=== PATIENT | female | born 1940 | race African-American/Black ===

== ENCOUNTER 2018-05-16 12:30 | Inpatient (IN) | payer MEDICARE, MEDICAID ==
[~2018-05-16] VITALS: Ht 175.3 cm; Wt 122.5 kg
[~2018-05-16 12:30] MED LIST: ASPIR-LOW81 MG PO; ATORVASTATIN CA10 MG PO; CARVEDILOL25 MG PO; FUROSEMIDE20 M1 PO; HYDRALAZINE HCL50 MG PO; JANUMET 50-1,01 EACH PO; MELOXICAM7.5 MG PO; PRECOSE50 MG PO; TRAMADOL-ACETA1 EACH PO; TRIBENZOR 40-51 EACH PO; ZAROXOLYN2.5 MG PO
[2018-05-16 12:45] VITALS: BP 113/54
[2018-05-16] MEDS ORDERED: BRIMONIDINE TART5 ML BOTH EYES (12:47)
[2018-05-16] MEDS ORDERED: ALBUTEROL2.5 MG/3 M INH (12:47)
[2018-05-16] MEDS ORDERED: CLONIDINE1 EAC1 TD (12:48)
[2018-05-16] MEDS ORDERED: Isovue-300 100ml vial INJ PRN (13:00)
[2018-05-16] MEDS ORDERED: HUMALOG KW200 UNIT/1 SQ (13:32)
[2018-05-16] MEDS ORDERED: GABAPENTIN100 MG ORAL (13:32)
[2018-05-16] MEDS ORDERED: SENNA8.6 M2 PO (13:34)
[2018-05-16] MEDS ORDERED: PROCARDIA XL90 M4 ORAL (13:34)
[2018-05-16] MEDS ORDERED: RISPERDAL2 MG ORAL (13:34)
[2018-05-16 13:56] LABS: BASOPHILS % (AUTO) 1.4 % (0.0-2.0); HEMATOCRIT 41.5 % (37.0-47.0); HEMOGLOBIN 13.3 G/DL (12.0-16.0); LYMPHOCYTES % (AUTO) 29.9 % (20.0-45.0); MEAN CORPUSCULAR VOLUME 92 FL (80-99); MONOCYTES % (AUTO) 8.1 % (1.0-10.0); NEUTROPHILS % (AUTO) 56.6 % (45.0-75.0); PLATELET COUNT 196 K/UL (150-450); RED BLOOD COUNT 4.53 M/UL (4.20-5.40); RED CELL DISTRIBUTION WIDTH 13.2 % (11.6-14.8); WHITE BLOOD COUNT 4.6 K/UL (4.8-10.8)
--- NOTE | 2018-05-16 13:56 | Emergency Room Report ---
History of Present Illness General Chief Complaint: General Complaint Source: Patient Present Illness HPI Mrs. Montenegro is a 77 yo female who presents with severe RLQ pain. Sharp pain. Patient is confused. Hx is limited. SHe keeps asking to be taken to [facility]. She is not convinced that she is in the right hospital. According to [place] documentation from [facility], patient has pneumonia CKD heart failure COPD gait difficulty diabetes Osteoarthritis obesity polyneuropathy back pain left eye blindness hyponatremia, depression Full Code Status PCP Dr. Martinez Allergies: Coded Allergies: PAPAYA (Verified Allergy, Intermediate, ITCH TO LIPS AND ORAL CAVITY, 10/23) Patient History Now: No Nursing Documentation-[facility] Past Medical History: No History, Except For Hx Cardiac Problems: No - CHF Hx Hypertension: Yes Hx COPD: Yes Hx Diabetes: Yes Hx Cancer: No Hx Gastrointestinal Problems: Yes History Of Psychiatric Problem: Yes - Depresion, Schizo Hx Neurological Problems: No - Neuropathy, Osteoarthritis Review of Systems All Other Systems: limited - altered mental status Physical Exam Vital Signs Date Time Temp Pulse Resp B/P (MAP) Pulse Ox O2 Delivery O2 Flow Rate FiO2 05/16/18 12:35 98.5 67 24 112/59 90 Room Air 2.0 98.4 General Appearance: no apparent distress, alert, non-toxic, other - appears chronically ill Eyes: bilateral eye other - left eyelid droop ENT: normal pharynx, normal voice, moist mucus membranes Neck: normal inspection, full range of motion Respiratory: normal inspection, chest non-tender, lungs clear, normal breath sounds Cardiovascular #1: regular rate, rhythm, no gallop, no rub Gastrointestinal: soft, guarding - voluntary guarding, tenderness - RLQ Neurologic: normal inspection, alert, other - oriented to name, unclear of place and date Psychiatric: other - abnormal memory, normal mood affect Skin: normal color Medical Decision Making ER Course Ms. Montenegro presents wtih RLQ pain with exquisite tenderness on exam. DDX: appendicitis, mass, colitis/enteritis, bowel obstruction My colleague Dr. Iyer will determine final disposition once CT is performed. PCP Dr. Martinez previously called to inform me that patient would be coming to ED Last Vital Signs Date Time Temp Pulse Resp B/P (MAP) Pulse Ox O2 Delivery O2 Flow Rate FiO2 05/16/18 12:35 98.5 67 24 112/59 90 Room Air 2.0 98.4 Condition: Stable Signed Out To: Dr. Chris Referrals: Nathalia Martinez MD (PCP) Jill Maldonado MD May 16, 2018 13:56
[2018-05-16 14:11] LABS: ANION GAP 7 mmol/L (5-15); BLOOD UREA NITROGEN 21 mg/dL (7-18); CALCIUM 9.4 MG/DL (8.5-10.1); CARBON DIOXIDE 31 MMOL/L (21-32); CHLORIDE 100 MMOL/L (98-107); CREATININE 1.3 MG/DL (0.55-1.30); POTASSIUM 3.1 MMOL/L (3.5-5.1); SODIUM 138 MMOL/L (136-145)
[2018-05-16 14:16] LABS: ALANINE AMINOTRANSFERASE 15 U/L (12-78); ALBUMIN 3.2 G/DL (3.4-5.0); ALBUMIN/GLOBULIN RATIO 0.9 (1.0-2.7); ALKALINE PHOSPHATASE 135 U/L (46-116); ASPARTATE AMINO TRANSFERASE 8 U/L (15-37); BILIRUBIN,TOTAL 0.4 MG/DL (0.2-1.0)
[2018-05-16 14:20] LABS: APPEARANCE,URINE SLIGHTLY CLOUDY; BILIRUBIN, URINE NEGATIVE (NEGATIVE); GLUCOSE, URINE (UA) 2+ (NEGATIVE); KETONES,URINE NEGATIVE (NEGATIVE); LEUKOCYTE ESTERASE ,URINE NEGATIVE (NEGATIVE); NITRITE,URINE NEGATIVE (NEGATIVE); PH,URINE 5 (4.5-8.0); PROTEIN,URINE NEGATIVE (NEGATIVE); UROBILINOGEN,URINE NORMAL MG/DL (0.0-1.0)
[2018-05-16 14:25] LABS: COLOR,URINE YELLOW
--- NOTE | 2018-05-16 15:41 | Diagnostic Imaging Report ---
Clinical Indication: Severe right lower quadrant pain Technique: No oral contrast utilized, per emergency room physician request IV administration nonionic contrast. Venous phase spiral acquisition obtained through the abdomen and pelvis. Multiplanar reconstructions were generated. Total dose length product 1477.84 mGycm. CTDIvol(s) 19.75,19.95 mGy. Dose reduction achieved using automated exposure control Comparison: none Findings: Lack of enteric contrast limits assessment of the GI tract. The appendix is normal. There is distention of the rectum with feces minimal if any rectal wall thickening. Rectal diameter is 8 cm. There is edema of the presacral fat. No evidence of diverticulosis or diverticulitis. No small bowel distention. There is diastasis of the rectus abdominis tendon and a small periumbilical hernia. No free or loculated intraperitoneal gas or fluid is evident. The distal esophagus, stomach, duodenum are unremarkable. The common bile duct is somewhat ectatic, but there is no evidence of downstream obstructive lesion. The liver contains a granulomatous calcification within the right lobe. The gallbladder, pancreas, spleen, adrenals, right kidney are all unremarkable. The left kidney demonstrates a punctate calculus within a lower pole calyx. Also demonstrates a 1 cm lower pole cyst. There is a subcentimeter low-attenuation lesion in the interpolar region which is too small to characterize. No retroperitoneal or mesenteric mass or adenopathy. Uterus is absent, presumably postsurgically. The bladder contains a single bubble of gas, is otherwise unremarkable. There is mild edema of the bilateral flank subcutaneous fat. There is some atelectasis at the lung bases, left greater than right. There is a compression fracture deformity of the L1 vertebral body. There is anterior offset of L4 on L5, without evidence of pars defect. There are degenerative changes of the lumbosacral junction. Impression: Limited assessment of the GI tract, due to lack of enteric contrast administration Rectal distention with feces, suggestive of rectal fecal impaction. No definite significant rectal wall thickening, but edema of the presacral fat could indicate stercoral proctitis Nonobstructive left lower pole renal calyceal calculus Single gas bubble within the bladder. Most likely due to recent instrumentation. However, if there is no history of such, the possibility of infection with gas-forming organism should be considered L1 vertebral body compression fracture, age indeterminate. Consider MRI for better characterization if this is clinically relevant Left renal cyst. Left renal low-attenuation lesion which is too small to characterize, most likely benign simple cyst. No further follow-up necessary Other findings as noted, including degenerative spondylosis, edema of the bilateral flank subcutaneous fat, tiny fat-containing umbilical hernia, basilar pulmonary parenchymal atelectasis, granulomas calcification within the liver The CT scanner at [facility] is accredited by the [employer] and the scans are performed using protocols designed to limit radiation exposure to as low as reasonably achievable to attain images of sufficient resolution adequate for diagnostic evaluation.
[2018-05-16 16:00] VITALS: BP 128/64
--- NOTE | 2018-05-16 16:30 | GI Initial Consult Note ---
History of Present Illness General Date patient seen: May 16, 2018 Time patient seen: 16:15 Reason for Hospitalization: General Complaint Referring physician: SERAFIN JONES Reason for Consultation: ABDOMINAL PAIN Present Illness HPI Mrs. Montenegro is a 77 yo female who presents with severe RLQ pain. Sharp pain. Patient is confused. Hx is limited. She keeps asking to be taken to [facility]. She is not convinced that she is in the right hospital. According to [place] documentation from [facility], patient has pneumonia CKD heart failure COPD gait difficulty diabetes Osteoarthritis obesity polyneuropathy back pain left eye blindness hyponatremia, depression. GI consulted for RLQ abdominal pain. ROS limited, patient with history of schizophrenia/dementia is currently confused, unsure if this is her baseline. Pt seen, awake A&Ox1 has c/o of RLQ pain. Abdomen is soft, non tender, non distended, unable to assess for rebound tenderness. CT AP shows rectal distention with feces, suggestive of rectal fecal impaction. No documented use of narcotics. Unknown history of endoscopy / colonoscopy. Home Meds Reported Medications Sennosides (SENNA) 8.6 Mg Tablet, 17.2 MG PO BEDTIME, TAB 05/16/18 Risperidone* (RISPERDAL*) 2 Mg Tablet, 2 MG ORAL BEDTIME, #30 TAB 0 Refills 05/16/18 Nifedipine Xl* (PROCARDIA XL*) 90 Mg Tab.er.24, 60 MG ORAL DAILY, TAB 05/16/18 Insulin Lispro (Humalog Kwikpen) 200 Unit/1 Ml Insuln.pen, SQ, EA 05/16/18 Gabapentin* (GABAPENTIN*) 100 Mg Capsule, 100 MG ORAL THREE TIMES A DAY, CAP 05/16/18 Clonidine (CLONIDINE) 1 Each Patch.tdwk, 1 EACH TD ONCE A WEEK, PATCH 05/16/18 Brimonidine Tartrate* (ALPHAGAN*) 5 Ml Drops, 1 DROP BOTH EYES TID, ML 05/16/18 Albuterol Sulfate* (ALBUTEROL SULFATE HHN*) 2.5 Mg/3 Ml Vial.neb, 3 ML INH Q4H PRN for Shortness of Breath, EA 05/16/18 Furosemide* (LASIX*) 20 Mg Tablet, 40 MG PO DAILY, #10 TAB Take 1 tablet by mouth daily 08/26/12 Sitagliptin Phos/Metformin Hcl (JANUMET 50-1,000 MG TABLET) 1 Each Tablet, 1 EACH PO DAILY 08/26/12 Atorvastatin Calcium* (LIPITOR*) 10 Mg Tablet, 20 MG PO QHS 08/26/12 Tramadol Hcl/Acetaminophen (TRAMADOL-ACETAMINOPHN 37.5-325) 1 Each Tablet, 1 EACH PO PRN 08/26/12 Aspirin* (ASPIR-LOW*) 81 Mg Tablet.dr, 81 MG PO DAILY, TAB 08/26/12 Meloxicam* (MELOXICAM*) 7.5 Mg Tablet, 7.5 MG PO DAILY 08/26/12 Hydralazine Hcl* (HYDRALAZINE HCL*) 50 Mg Tablet, 50 MG PO BID 08/26/12 Acarbose (Acarbose) 50 Mg Tab, 50 MG PO TID, TAB Take one tablet by mouth three times a day 08/26/12 Carvedilol* (CARVEDILOL*) 25 Mg Tablet, 25 MG PO Q12HR 08/26/12 Olmesartan Med/Amlodipine/Hctz 40-5-12.5 (TRIBENZOR 40-5-12.5 MG TABLET) 1 Each Tablet, 1 EACH PO DAILY 08/26/12 Metolazone (Metolazone) 2.5 Mg Tab, 2.5 MG PO DAILY, #10 TAB Take 1 tablet by mouth every day. 08/26/12 Med list reviewed/reconciled: Yes Allergies: Coded Allergies: PAPAYA (Verified Allergy, Intermediate, ITCH TO LIPS AND ORAL CAVITY, 10/23) Patient History Limited by: medical condition History Provided By: Medical Record PMH Narrative DM COPD CHF with diastolic dysfunction OA Morbid Obesity Polyneuropathy Chronic Lower Back Pain Left eye blindness CKD Gait Imbalance Depression Past Surgical History: Hysterectomy Social History: Denies: smoking, alcohol use, drug use, other Review of Systems All Other Systems: limited Physical Exam Vital Signs Date Time Temp Pulse Resp B/P (MAP) Pulse Ox O2 Delivery O2 Flow Rate FiO2 05/16/18 12:35 98.5 67 24 112/59 90 Room Air 2.0 98.4 Sp02 EP Interpretation: reviewed Labs Laboratory Tests Test 05/16/18 13:37 05/16/18 14:00 White Blood Count 4.6 K/UL (4.8-10.8) L Red Blood Count 4.53 M/UL (4.20-5.40) Hemoglobin 13.3 G/DL (12.0-16.0) Hematocrit 41.5 % (37.0-47.0) Mean Corpuscular Volume 92 FL (80-99) Mean Corpuscular Hemoglobin 29.4 PG (27.0-31.0) Mean Corpuscular Hemoglobin Concent 32.1 G/DL (32.0-36.0) Red Cell Distribution Width 13.2 % (11.6-14.8) Platelet Count 196 K/UL (150-450) Mean Platelet Volume 10.3 FL (6.5-10.1) H Neutrophils (%) (Auto) 56.6 % (45.0-75.0) Lymphocytes (%) (Auto) 29.9 % (20.0-45.0) Monocytes (%) (Auto) 8.1 % (1.0-10.0) Eosinophils (%) (Auto) 4.0 % (0.0-3.0) H Basophils (%) (Auto) 1.4 % (0.0-2.0) Sodium Level 138 MMOL/L (136-145) Potassium Level 3.1 MMOL/L (3.5-5.1) L Chloride Level 100 MMOL/L (98-107) Carbon Dioxide Level 31 MMOL/L (21-32) Anion Gap 7 mmol/L (5-15) Blood Urea Nitrogen 21 mg/dL (7-18) H Creatinine 1.3 MG/DL (0.55-1.30) Estimat Glomerular Filtration Rate mL/min (>60) Glucose Level 269 MG/DL (74-106) H Calcium Level 9.4 MG/DL (8.5-10.1) Total Bilirubin 0.4 MG/DL (0.2-1.0) Aspartate Amino Transf (AST/SGOT) 8 U/L (15-37) L Alanine Aminotransferase (ALT/SGPT) 15 U/L (12-78) Alkaline Phosphatase 135 U/L (46-116) H Total Protein 6.8 G/DL (6.4-8.2) Albumin 3.2 G/DL (3.4-5.0) L Globulin 3.6 g/dL Albumin/Globulin Ratio 0.9 (1.0-2.7) L Lipase 62 U/L (73-393) L Urine Color Yellow Urine Appearance Slightly cloudy Urine pH 5 (4.5-8.0) Urine Specific [place] 1.015 (1.005-1.035) Urine Protein Negative (NEGATIVE) Urine Glucose (UA) 2+ (NEGATIVE) H Urine Ketones Negative (NEGATIVE) Urine Blood Negative (NEGATIVE) Urine Nitrite Negative (NEGATIVE) Urine Bilirubin Negative (NEGATIVE) Urine Urobilinogen Normal MG/DL (0.0-1.0) Urine Leukocyte Esterase Negative (NEGATIVE) Urine RBC 0 /HPF (0 - 2) Urine WBC 0 /HPF (0 - 2) Urine Squamous Epithelial Cells Moderate /LPF (NONE/OCC) H Urine Bacteria Few /HPF (NONE) Urine Yeast Moderate /HPF (NONE) H General Appearance: no apparent distress, obese Head: normocephalic EENT: normal ENT inspection Neck: supple Respiratory: no respiratory distress Cardiovascular: normal rate Gastrointestinal: non tender, soft Rectal: deferred Neurologic: alert Skin: normal inspection, normal color, no rash, warm/dry Lymphatic: normal inspection Current Medications Current Medications Medications (Trade) Dose Ordered Sig/Smooth Route PRN Reason Start Time Stop Time Status Last Admin Dose Admin Barium Sulfate (Readi-Cat 2) 450 ml NOW PRN ORAL Radiology Procedure 05/16/18 13:00 05/18/18 12:46 Iopamidol (Isovue-300 100ml) 100 ml NOW PRN INJ Radiology Procedure 05/16/18 13:00 GI: Plan Problems: (1) Fecal impaction in rectum (2) Morbid obesity (3) Diabetes mellitus (4) Constipation Plan PO mineral oil x 1, followed by mineral oil PA tonight CLD, advance as tolerated bowel regime >> colace + miralax will consider digital disimpaction if medical management fails DM management H2B electrolyte correction outpatient GI procedures Discussed with Dr. Sanchez. Thank you for this patient referral, we will follow. The patient was seen and examined at bedside and all new and available data was reviewed in the patients chart. I agree with the above findings, impression and plan. (Patient seen earlier today. Signature stamp does not reflect patient encounter time.). - MD Liana Paul,[facility] [employer] May 16, 2018 16:30
[2018-05-16] MEDS ORDERED: Mineral Oil 30ml ud ORAL PRN (16:45)
--- NOTE | 2018-05-16 17:22 | Diagnostic Imaging Report ---
Indication: Chest pain Technique: One view of the chest Comparison: none Findings: Suboptimal inspiration. There is central bronchial wall thickening. Lungs and pleural spaces are otherwise clear. The heart is borderline enlarged. Impression: Borderline cardiomegaly Central bronchial wall thickening and interstitial prominence, probably on the basis of chronic bronchitis, mild interstitial edema not completely excludable. Correlate with clinical findings
[2018-05-16 17:38] VITALS: BP 140/67
[2018-05-16] MEDS ORDERED: Mineral Oil 30ml ud ORAL SCH (19:00)
[2018-05-16 20:00] VITALS: BP 102/55
[2018-05-16] MEDS ORDERED: Fleet's Mineral Oil Enema RECTAL SCH (20:00)
[2018-05-16] MEDS: Miralax 17gm pkt ORAL SCH (20:41)
[2018-05-16] MEDS: Docusate 100mg cap ORAL SCH (20:41)
[2018-05-17] VITALS: BP 122/78
[2018-05-17] MEDS ORDERED: Albuterol ud Inhalation HHN PRN (02:30)
[2018-05-17 04:00] VITALS: BP 142/62
[2018-05-17] MEDS: NovoLOG Insulin Flexpen SUBQ SCH ×4 (06:16→21:00)
[2018-05-17 08:00] VITALS: BP 125/59
[2018-05-17 08:05] LABS: BASOPHILS % (AUTO) 1.7 % (0.0-2.0); EOSINOPHILS % (AUTO) 2.8 % (0.0-3.0); HEMATOCRIT 38.5 % (37.0-47.0); HEMOGLOBIN 12.9 G/DL (12.0-16.0); LYMPHOCYTES % (AUTO) 25.9 % (20.0-45.0); MEAN CORPUSCULAR VOLUME 92 FL (80-99); MONOCYTES % (AUTO) 7.3 % (1.0-10.0); NEUTROPHILS % (AUTO) 62.4 % (45.0-75.0); PLATELET COUNT 196 K/UL (150-450); RED CELL DISTRIBUTION WIDTH 13.3 % (11.6-14.8); WHITE BLOOD COUNT 4.6 K/UL (4.8-10.8)
[2018-05-17] MEDS: Aspirin EC 81mg tab ORAL SCH (08:54)
[2018-05-17] MEDS: Carvedilol 25mg Tab ORAL SCH ×2 (08:55→22:28)
[2018-05-17] MEDS: Docusate 100mg cap ORAL SCH ×3 (08:55→18:00)
[2018-05-17] MEDS: Brimonidine 0.2% Opth Sol BOTH EYES SCH ×3 (08:55→18:27)
[2018-05-17 09:56] LABS: ANION GAP 9 mmol/L (5-15); BLOOD UREA NITROGEN 19 mg/dL (7-18); CALCIUM 9.3 MG/DL (8.5-10.1); CARBON DIOXIDE 29 MMOL/L (21-32); CHLORIDE 100 MMOL/L (98-107); CREATININE 1.2 MG/DL (0.55-1.30); POTASSIUM 3.2 MMOL/L (3.5-5.1); SODIUM 137 MMOL/L (136-145)
--- NOTE | 2018-05-17 09:56 | Consultation ---
Consult Note Consult Note Present Illness HPI Mrs. Montenegro is a 77 yo female who presents with severe RLQ pain. Sharp pain. Patient is confused. Hx is limited. SHe keeps asking to be taken to [facility]. She is not convinced that she is in the right hospital. According to [place] documentation from [facility], patient has pneumonia CKD heart failure COPD gait difficulty diabetes Osteoarthritis obesity polyneuropathy back pain left eye blindness hyponatremia, depression PCP Dr. Martinez Allergies: PAPAYA (Verified Allergy, Intermediate, ITCH TO LIPS AND ORAL CAVITY, 10/23) Past Medical History: No History, Except For Hx Cardiac Problems: No - CHF Hx Hypertension: Yes Hx COPD: Yes Hx Diabetes: Yes Hx Gastrointestinal Problems: Yes History Of Psychiatric Problem: Yes - Depresion, Schizo Hx Neurological Problems: No - Neuropathy, Osteoarthritis Assessment/Plan (1) Fecal impaction in rectum (2) Morbid obesity (3) Diabetes mellitus (4) Constipation (5) Low K (6) HTN (7) Psych Ds watch and replace electrolytes Per orders Tj Mancilla MD May 17, 2018 09:56
[2018-05-17 12:00] VITALS: BP 125/62
[2018-05-17] MEDS ORDERED: Fleet's Enema 133ml RECTAL ONE (12:00)
--- NOTE | 2018-05-17 13:34 | Infectious Diseases Prog Note ---
Assessment/Plan Problems: (1) RLQ abdominal pain Assessment & Plan: with negative CT scan for any abscess or inflammatory process , will keep off antibiotics , monitor clinically (2) Fecal impaction Assessment & Plan: recommend laxatives and enema , GI is following (3) Dehydration Assessment & Plan: continue ivf for hydration (4) Diabetes mellitus Assessment & Plan: recommend tight glycemic control Subjective Allergies: Coded Allergies: PAPAYA (Verified Allergy, Intermediate, ITCH TO LIPS AND ORAL CAVITY, 10/23) Subjective ID coverage for Dr Joyce Objective Vital Signs Last 24 Hour Vital Signs Date Time Temp Pulse Resp B/P (MAP) Pulse Ox O2 Delivery O2 Flow Rate FiO2 05/17/18 09:00 Nasal Cannula 2.0 05/17/18 08:55 71 125/59 05/17/18 08:55 71 125/59 05/17/18 08:20 Nasal Cannula 2.0 28 05/17/18 08:20 71 16 Nasal Cannula 2.0 28 05/17/18 08:20 96 Nasal Cannula 2.0 28 05/17/18 08:00 98.3 65 18 125/59 (81) 95 98.3 05/17/18 04:00 98.2 82 18 142/62 (88) 95 98.2 05/17/18 02:12 Nasal Cannula 2.0 05/17/18 01:11 Nasal Cannula 2.0 05/17/18 00:00 98.6 76 18 122/78 (93) 95 98.6 05/16/18 20:00 98.5 67 18 102/55 (71) 95 98.5 05/16/18 19:05 98.1 85 18 140/67 99 Nasal Cannula 2.0 98.1 05/16/18 17:38 98.1 85 140/67 92 2.0 99 98.1 05/16/18 16:00 98.4 71 23 128/64 99 Nasal Cannula 2.0 98.4 Height (Feet): 5 Height (Inches): 9.00 Weight (Pounds): 270 Microbiology Date/Time Source Procedure Growth Status 05/16/18 14:00 Urine,Clean Catch Urine Culture - Preliminary NO GROWTH Resulted 05/17/18 00:00 Rectum Received Laboratory Tests Test 05/16/18 13:37 05/16/18 14:00 05/17/18 06:55 White Blood Count 4.6 K/UL (4.8-10.8) L 4.6 K/UL (4.8-10.8) L Red Blood Count 4.53 M/UL (4.20-5.40) 4.20 M/UL (4.20-5.40) Hemoglobin 13.3 G/DL (12.0-16.0) 12.9 G/DL (12.0-16.0) Hematocrit 41.5 % (37.0-47.0) 38.5 % (37.0-47.0) Mean Corpuscular Volume 92 FL (80-99) 92 FL (80-99) Mean Corpuscular Hemoglobin 29.4 PG (27.0-31.0) 30.6 PG (27.0-31.0) Mean Corpuscular Hemoglobin Concent 32.1 G/DL (32.0-36.0) 33.4 G/DL (32.0-36.0) Red Cell Distribution Width 13.2 % (11.6-14.8) 13.3 % (11.6-14.8) Platelet Count 196 K/UL (150-450) 196 K/UL (150-450) Mean Platelet Volume 10.3 FL (6.5-10.1) H 8.7 FL (6.5-10.1) Neutrophils (%) (Auto) 56.6 % (45.0-75.0) 62.4 % (45.0-75.0) Lymphocytes (%) (Auto) 29.9 % (20.0-45.0) 25.9 % (20.0-45.0) Monocytes (%) (Auto) 8.1 % (1.0-10.0) 7.3 % (1.0-10.0) Eosinophils (%) (Auto) 4.0 % (0.0-3.0) H 2.8 % (0.0-3.0) Basophils (%) (Auto) 1.4 % (0.0-2.0) 1.7 % (0.0-2.0) Sodium Level 138 MMOL/L (136-145) 137 MMOL/L (136-145) Potassium Level 3.1 MMOL/L (3.5-5.1) L 3.2 MMOL/L (3.5-5.1) L Chloride Level 100 MMOL/L (98-107) 100 MMOL/L (98-107) Carbon Dioxide Level 31 MMOL/L (21-32) 29 MMOL/L (21-32) Anion Gap 7 mmol/L (5-15) 9 mmol/L (5-15) Blood Urea Nitrogen 21 mg/dL (7-18) H 19 mg/dL (7-18) H Creatinine 1.3 MG/DL (0.55-1.30) 1.2 MG/DL (0.55-1.30) Estimat Glomerular Filtration Rate mL/min (>60) mL/min (>60) Glucose Level 269 MG/DL (74-106) H 309 MG/DL (74-106) H Calcium Level 9.4 MG/DL (8.5-10.1) 9.3 MG/DL (8.5-10.1) Total Bilirubin 0.4 MG/DL (0.2-1.0) Aspartate Amino Transf (AST/SGOT) 8 U/L (15-37) L Alanine Aminotransferase (ALT/SGPT) 15 U/L (12-78) Alkaline Phosphatase 135 U/L (46-116) H Total Protein 6.8 G/DL (6.4-8.2) Albumin 3.2 G/DL (3.4-5.0) L Globulin 3.6 g/dL Albumin/Globulin Ratio 0.9 (1.0-2.7) L Lipase 62 U/L (73-393) L Urine Color Yellow Urine Appearance Slightly cloudy Urine pH 5 (4.5-8.0) Urine Specific [place] 1.015 (1.005-1.035) Urine Protein Negative (NEGATIVE) Urine Glucose (UA) 2+ (NEGATIVE) H Urine Ketones Negative (NEGATIVE) Urine Blood Negative (NEGATIVE) Urine Nitrite Negative (NEGATIVE) Urine Bilirubin Negative (NEGATIVE) Urine Urobilinogen Normal MG/DL (0.0-1.0) Urine Leukocyte Esterase Negative (NEGATIVE) Urine RBC 0 /HPF (0 - 2) Urine WBC 0 /HPF (0 - 2) Urine Squamous Epithelial Cells Moderate /LPF (NONE/OCC) H Urine Bacteria Few /HPF (NONE) Urine Yeast Moderate /HPF (NONE) H Current Medications Medications (Trade) Dose Ordered Sig/Smooth Route PRN Reason Start Time Stop Time Status Last Admin Dose Admin Albuterol Sulfate (Proventil) 2.5 mg Q4H PRN HHN Shortness of Breath 05/17/18 02:30 05/22/18 02:29 Aspirin (Ecotrin) 81 mg DAILY ORAL 05/17/18 09:00 06/16/18 08:59 05/17/18 08:54 Atorvastatin Calcium (Lipitor) 20 mg QHS ORAL 05/17/18 21:00 06/16/18 20:59 Barium Sulfate (Readi-Cat 2) 450 ml NOW PRN ORAL Radiology Procedure 05/16/18 13:00 05/18/18 12:46 Brimonidine Tartrate (Alphagan) 1 drop TID BOTH EYES 05/17/18 09:00 06/16/18 08:59 05/17/18 08:55 Carvedilol (Coreg) 25 mg Q12HR ORAL 05/17/18 09:00 06/16/18 08:59 05/17/18 08:55 Clonidine HCl (Catapres TTS-1) 1 patch ONCE A WEEK TDERMAL 05/23/18 09:00 06/22/18 08:59 Dextrose (Dextrose 50%) 25 ml Q30M PRN IV Hypoglycemia 05/17/18 05:45 06/16/18 05:44 Dextrose (Dextrose 50%) 50 ml Q30M PRN IV Hypoglycemia 05/17/18 05:45 06/16/18 05:44 Docusate Sodium (Colace) 100 mg TID ORAL 05/16/18 18:00 06/15/18 17:59 05/17/18 08:55 Famotidine (Pepcid) 20 mg BID ORAL 05/17/18 18:00 06/16/18 17:59 Gabapentin (Neurontin) 100 mg THREE TIMES A DAY ORAL 05/17/18 09:00 06/16/18 08:59 05/17/18 08:54 Insulin Aspart (NovoLOG) BEFORE MEALS AND HS SUBQ 05/17/18 06:30 06/16/18 06:29 05/17/18 06:16 Iopamidol (Isovue-300 100ml) 100 ml NOW PRN INJ Radiology Procedure 05/16/18 13:00 Mineral Oil (Mineral Oil) 30 ml DAILY PRN ORAL Constipation 05/16/18 16:45 06/15/18 16:44 Nifedipine (Procardia XL) 60 mg DAILY ORAL 05/17/18 09:00 06/16/18 08:59 05/17/18 08:55 Polyethylene Glycol (Miralax) 17 gm BEDTIME ORAL 05/16/18 21:00 06/15/18 20:59 05/16/18 20:41 Potassium Chloride (K-Dur) 40 meq DAILY ORAL 05/17/18 11:00 06/16/18 10:59 05/17/18 11:24 Risperidone (RisperDAL) 2 mg BEDTIME ORAL 05/17/18 21:00 06/16/18 20:59 Sennosides (Senokot) 2 tab BEDTIME ORAL 05/17/18 21:00 06/16/18 20:59 Miracle Brown M.D. May 17, 2018 13:34
--- NOTE | 2018-05-17 16:33 | Consultation ---
Consult Note Consult Note HEMATOLOGY-ONCOLOGY CONSULTATION REQUESTING PHYSICIAN: SERAFIN JONES M.D. DATE OF CONSULTATION: 05/17/2018 REASON FOR CONSULTATION: Evaluation of leukopenia. HPI Mrs. Montenegro is a 77 yo female who presents with severe RLQ pain. Sharp pain. Patient is confused. Hx is limited. She keeps asking to be taken to [facility]. She is not convinced that she is in the right hospital. According to [place] documentation from [facility], patient has pneumonia CKD heart failure COPD gait difficulty diabetes Osteoarthritis obesity polyneuropathy back pain left eye blindness hyponatremia, depression. ROS limited, patient with history of schizophrenia/dementia is currently confused, unsure if this is her baseline. Pt seen, awake A&Ox1. I have been consulted for the evaluation of leukopenia. Current WBC at 4.6, heme was consulted for that reason. Med list reviewed/reconciled: Yes Allergies: Coded Allergies: PAPAYA (Verified Allergy, Intermediate, ITCH TO LIPS AND ORAL CAVITY, 10/23) Laboratory Tests Test 05/17/18 06:55 White Blood Count 4.6 K/UL (4.8-10.8) L Red Blood Count 4.20 M/UL (4.20-5.40) Hemoglobin 12.9 G/DL (12.0-16.0) Hematocrit 38.5 % (37.0-47.0) Mean Corpuscular Volume 92 FL (80-99) Mean Corpuscular Hemoglobin 30.6 PG (27.0-31.0) Mean Corpuscular Hemoglobin Concent 33.4 G/DL (32.0-36.0) Red Cell Distribution Width 13.3 % (11.6-14.8) Platelet Count 196 K/UL (150-450) Mean Platelet Volume 8.7 FL (6.5-10.1) Neutrophils (%) (Auto) 62.4 % (45.0-75.0) Lymphocytes (%) (Auto) 25.9 % (20.0-45.0) Monocytes (%) (Auto) 7.3 % (1.0-10.0) Eosinophils (%) (Auto) 2.8 % (0.0-3.0) Basophils (%) (Auto) 1.7 % (0.0-2.0) Sodium Level 137 MMOL/L (136-145) Potassium Level 3.2 MMOL/L (3.5-5.1) L Chloride Level 100 MMOL/L (98-107) Carbon Dioxide Level 29 MMOL/L (21-32) Anion Gap 9 mmol/L (5-15) Blood Urea Nitrogen 19 mg/dL (7-18) H Creatinine 1.2 MG/DL (0.55-1.30) Estimat Glomerular Filtration Rate mL/min (>60) Glucose Level 309 MG/DL (74-106) H Calcium Level 9.3 MG/DL (8.5-10.1) Patient History Limited by: medical condition History Provided By: Medical Record PMH Narrative DM COPD CHF with diastolic dysfunction OA Morbid Obesity Polyneuropathy Chronic Lower Back Pain Left eye blindness CKD Gait Imbalance Depression Past Surgical History: Hysterectomy Social History: Denies: smoking, alcohol use, drug use, other Review of Systems All Other Systems: limited Physical Exam Vital Signs Date Time Temp Pulse Resp B/P (MAP) Pulse Ox O2 Delivery O2 Flow Rate FiO2 05/16/18 12:35 98.5 67 24 112/59 90 Room Air 2.0 98.4 Sp02 EP Interpretation: reviewed Labs Laboratory Tests Test 05/16/18 13:37 05/16/18 14:00 White Blood Count 4.6 K/UL (4.8-10.8) L Red Blood Count 4.53 M/UL (4.20-5.40) Hemoglobin 13.3 G/DL (12.0-16.0) Hematocrit 41.5 % (37.0-47.0) Mean Corpuscular Volume 92 FL (80-99) Mean Corpuscular Hemoglobin 29.4 PG (27.0-31.0) Mean Corpuscular Hemoglobin Concent 32.1 G/DL (32.0-36.0) Red Cell Distribution Width 13.2 % (11.6-14.8) Platelet Count 196 K/UL (150-450) Mean Platelet Volume 10.3 FL (6.5-10.1) H Neutrophils (%) (Auto) 56.6 % (45.0-75.0) Lymphocytes (%) (Auto) 29.9 % (20.0-45.0) Monocytes (%) (Auto) 8.1 % (1.0-10.0) Eosinophils (%) (Auto) 4.0 % (0.0-3.0) H Basophils (%) (Auto) 1.4 % (0.0-2.0) Sodium Level 138 MMOL/L (136-145) Potassium Level 3.1 MMOL/L (3.5-5.1) L Chloride Level 100 MMOL/L (98-107) Carbon Dioxide Level 31 MMOL/L (21-32) Anion Gap 7 mmol/L (5-15) Blood Urea Nitrogen 21 mg/dL (7-18) H Creatinine 1.3 MG/DL (0.55-1.30) Estimat Glomerular Filtration Rate mL/min (>60) Glucose Level 269 MG/DL (74-106) H Calcium Level 9.4 MG/DL (8.5-10.1) Total Bilirubin 0.4 MG/DL (0.2-1.0) Aspartate Amino Transf (AST/SGOT) 8 U/L (15-37) L Alanine Aminotransferase (ALT/SGPT) 15 U/L (12-78) Alkaline Phosphatase 135 U/L (46-116) H Total Protein 6.8 G/DL (6.4-8.2) Albumin 3.2 G/DL (3.4-5.0) L Globulin 3.6 g/dL Albumin/Globulin Ratio 0.9 (1.0-2.7) L Lipase 62 U/L (73-393) L Urine Color Yellow Urine Appearance Slightly cloudy Urine pH 5 (4.5-8.0) Urine Specific Spruce 1.015 (1.005-1.035) Urine Protein Negative (NEGATIVE) Urine Glucose (UA) 2+ (NEGATIVE) H Urine Ketones Negative (NEGATIVE) Urine Blood Negative (NEGATIVE) Urine Nitrite Negative (NEGATIVE) Urine Bilirubin Negative (NEGATIVE) Urine Urobilinogen Normal MG/DL (0.0-1.0) Urine Leukocyte Esterase Negative (NEGATIVE) Urine RBC 0 /HPF (0 - 2) Urine WBC 0 /HPF (0 - 2) Urine Squamous Epithelial Cells Moderate /LPF (NONE/OCC) H Urine Bacteria Few /HPF (NONE) Urine Yeast Moderate /HPF (NONE) H General Appearance: no apparent distress, obese Head: normocephalic EENT: normal ENT inspection Neck: supple Respiratory: no respiratory distress Cardiovascular: normal rate Gastrointestinal: non tender, soft Rectal: deferred Neurologic: alert Skin: normal inspection, normal color, no rash, warm/dry Lymphatic: normal inspection Current Medications Current Medications Medications (Trade) Dose Ordered Sig/Smooth Route PRN Reason Start Time Stop Time Status Last Admin Dose Admin Barium Sulfate (Readi-Cat 2) 450 ml NOW PRN ORAL Radiology Procedure 05/16/18 13:00 05/18/18 12:46 Iopamidol (Isovue-300 100ml) 100 ml NOW PRN INJ Radiology Procedure 05/16/18 13:00 Assessment/Plan # Leukopenia. Multiple etiologies possible including most common which are medication-induced, infection versus viral syndrome. --> Hep panel and HIV have been ordered. --> US abd ordered to r/o cirrhosis and hepatosplenomegaly --> CT of the abdomen reviewed and no specific abdominal pathology noted --> peripheral smear has been ordered as well # RLQ abd pain.CT negative. # Fecal Impaction. Recommend laxatives and enema. GI is following. # Morbid obesity. # Dehydration. Cont IVF. # DM. A1C goal less than 7. # Constipation. GREATLY APPRECIATE THE CONSULTATION Johann Pérez MD May 17, 2018 16:33
--- NOTE | 2018-05-17 17:30 | Consultation ---
DATE OF CONSULTATION: 05/17/2018 INFECTIOUS DISEASE CONSULTATION CONSULTING PHYSICIAN: Miracle Brown M.D. REQUESTING PHYSICIAN: Nathalia Martinez M.D. REASON FOR CONSULTATION: Right lower quadrant abdominal pain, rule out infectious etiology or colitis. HISTORY OF PRESENT ILLNESS: The patient is a 77-year-old female with past medical history of CHF, hypertension, COPD, diabetes, depression, schizophrenia, and neuropathy, presented to [facility] emergency room with severe right lower quadrant abdominal pain for two days. The pain was sharp, dull, deep ache 6/10. No radiation and no relation with bowel movement or urination. The patient denied any fever or chills. No nausea or vomiting. No change in her appetite. No recent travel or sick contact. The patient had a CT scan of the abdomen and pelvis showing fecal impaction and prerectal edema concerning for proctitis. So, Infectious Disease consultation was requested for antibiotics treatment and further management. REVIEW OF SYSTEMS: A 14-point of system reviewed were all negative apart from the one I mentioned above in my History and Physical. PAST MEDICAL HISTORY: Significant for CHF, hypertension, COPD, diabetes, GERD, depression, schizophrenia, neuropathy, and osteoarthritis. PAST SURGICAL HISTORY: Negative. FAMILY HISTORY: Not contributory. SOCIAL HISTORY: The patient lives at residential [facility]. No recent drugs, tobacco, or alcohol. ALLERGIES: She is allergic to papaya. MEDICATIONS: She is on clonidine, atorvastatin, risperidone, famotidine, potassium chloride, aspirin, brimonidine, carvedilol, gabapentin, nifedipine, insulin, dextrose, albuterol sulfate, polyethylene glycol, mineral oil, iopamidol, and barium sulfate. LABORATORY DATA: Labs showed white count of 4.6, hemoglobin of 12.9, platelet count of 196. BUN of 19, creatinine of 1.2. AST of 8, ALT of 15, and alkaline phosphatase of 135. Urinalysis showed moderate amount of squamous epithelial cells and moderate urine yeast. Microbiology, urine culture so far showed no growth. IMAGING STUDIES: CT scan of the abdomen and pelvis showed rectal distention with feces suggestive of rectal fecal impaction. No definite significant rectal wall thickening, but edema of the presacral fat could indicate stercoral proctitis and nonobstructive left lower pole renal calcaneal calculus, single gas bubble within the bladder, most likely due to recent instrumentation, although there is no history of such possibility of infection with gas-forming organism should be considered, L1 vertebral body compression fracture, age indeterminate. Consider MRI for better characterization, left renal cyst with left renal low-attenuation lesion, which is too small to characterize. Chest x-ray showed borderline cardiomegaly. Central bronchial wall thickening and interstitial prominence, probably on the basis of chronic bronchitis, mild interstitial edema not completely excludable . PHYSICAL EXAMINATION: VITAL SIGNS: Temperature 98.2, pulse 67, respirations 20, blood pressure 125/62, and saturation 98% on nasal cannula 2 liters. GENERAL: Elderly obese female, lying in bed, legally blind on the left. Awake and alert, not in distress. HEENT: Normocephalic and atraumatic. Pupils reactive to light equally. Moist oral mucosa. No exudate. NECK: Supple. No lymphadenopathy. CARDIOVASCULAR: Regular rate and rhythm. No murmur or gallop. LUNGS: Clear bilaterally. No wheezing or rhonchi. Normal breathing effort. ABDOMEN: Soft, nontender, nondistended. Normal bowel sounds. No hepatosplenomegaly or ascites. EXTREMITIES: No edema or cyanosis. SKIN: No rash. No hives. ASSESSMENT AND RECOMMENDATION: 1. Right lower quadrant abdominal pain with stercoral proctitis. This is most likely due to constipation and not infectious etiology. We will keep the patient off antibiotics. Recommend laxative with enema to improve her bowel movement and we will monitor the patient clinically. 2. Air bubble in the bladder, nonspecific with urinalysis, not suggestive of infection and urine culture showed no growth so far. We will continue to monitor, keep off antibiotics for now. 3. Fecal impaction. Recommend laxative and enema. GI team has been consulted. 4. Dehydration. Continue IV fluid for hydration. 5. Diabetes. Recommend tight glycemic control to keep blood glucose between 100 to 140. Thank you for the consult. ID will continue to follow. Please feel free to call with any question. Miracle Brown M.D. DR: DIANNA JOB#: [id number] CC: YULIET
[2018-05-17 20:00] VITALS: BP 142/82
--- NOTE | 2018-05-17 20:45 | History and Physical Report ---
DATE OF ADMISSION: 05/16/2018 HISTORY OF PRESENT ILLNESS: The patient came in because of severe abdominal pain. The patient was admitted for severe abdominal pain and imaging showed fecal impaction. The patient also denied vomiting. The patient also admitted for hypokalemia and possible UTI as well. The patient denies nausea, vomiting, or diarrhea. No fevers or chills. No shortness of breath. Denies cough. PAST MEDICAL HISTORY: Significant for COPD, history of hypertension, history of diabetes, history of GERD, history of depression, schizophrenia, osteoarthritis, hyperlipidemia, psychosis, constipation, chronic pain syndrome, and back pain. PAST SURGICAL HISTORY: Denies. ALLERGIES: To papaya. MEDICATIONS: Aspirin, Lipitor, Coreg, gabapentin, hydralazine, insulin, meloxicam, risperidone, Senokot, and tramadol. FAMILY HISTORY: Noncontributory. SOCIAL HISTORY: Denies smoking, alcohol, or illicit drugs. Comes from a snf. REVIEW OF SYSTEMS: HEENT: Denies headaches. RESPIRATORY: Denies shortness of breath. Denies cough. CARDIOVASCULAR: Denies chest pain. GASTROINTESTINAL: Denies nausea, vomiting, or diarrhea. She does have abdominal pain, 9/10 for two days. EXTREMITIES: Denies pain in the lower extremities. She does have . CENTRAL NERVOUS SYSTEM: Denies changes in vision or speech pattern. PHYSICAL EXAMINATION: VITAL SIGNS: Temperature 98.3, pulse 65, and blood pressure 125/59. HEENT: PERRLA. NECK: Supple. No lymphadenopathy. CHEST: Clear to auscultation. GASTROINTESTINAL: She does have epigastric tenderness. No rebound. Abdomen is soft. Positive bowel sounds. EXTREMITIES: No edema. NEUROLOGIC: Reflexes are equal on both sides with generalized weakness. IMAGING: Shows fecal impaction. LABORATORY DATA: WBC of 4.6, hemoglobin 13, and platelets of 196,000. Sodium 138, potassium 3.1, chloride 100, BUN of 21, creatinine 1.3, and glucose of 269. ASSESSMENT AND PLAN: 1. Abdominal pain, most likely due to fecal impaction. 2. UTI. 3. Hypokalemia. I have asked to see the patient for management of above-mentioned diagnoses and treatment. Nathalia Martinez M.D. DR: DEEP JOB#: [id number] CC:
--- NOTE | 2018-05-17 22:15 | Consultation ---
DATE OF CONSULTATION: 05/17/2018 GASTROENTEROLOGY CONSULTATION CONSULTING PHYSICIAN: Linh Saldaña M.D. REFERRING PHYSICIAN: Nathalia Martinez M.D. CHIEF COMPLAINT: I was asked to see this patient by Dr. Nathalia Martinez for evaluation of abdominal pain. HISTORY OF PRESENT ILLNESS: The patient is a pleasant 77-year-old woman with a 3-4-day history of generalized intraabdominal discomfort. The patient noticed some episodes of nausea and vomiting over the last few days and also feels constipated. There has been no hematochezia. No fevers or chills. She had endoscopy and colonoscopy in 2017 at [facility], which was by her report negative. She does have diabetes and is on oral diabetic medications. CT scan of the abdomen and pelvis done in the emergency room showed rectal distention with feces, possible fecal impaction. There is some lumbar compression fracture and a gas bubble in the bladder. There was also a left lower pole renal calculus. PAST MEDICAL HISTORY: Remarkable for history of hypertension, hypercholesterolemia, and [id number] diabetes mellitus. PAST SURGICAL HISTORY: Status post tonsillectomy and adenoidectomy, history of ankle surgery, and history of section x3. FAMILY HISTORY: Positive for lung cancer in the grandfather on the father's side. SOCIAL HISTORY: The patient does smoke, but does not drink alcohol. MEDICATIONS: See the chart list for details. REVIEW OF SYSTEMS: Otherwise negative. PHYSICAL EXAMINATION: GENERAL: The patient is a pleasant woman, seen in her room. HEENT: Normocephalic and atraumatic. Sclerae anicteric. Oropharynx clear. NECK: Supple. CHEST: Clear to auscultation. CARDIOVASCULAR: Revealed regular rate. ABDOMEN: Soft with some mild tenderness in the lower quadrant, more so on the left side. There is no guarding or rebound. EXTREMITIES: Revealed no edema. NEUROLOGIC: Grossly nonfocal. LABORATORY DATA: Noted. ASSESSMENT: This patient presents with abdominal pain, nausea, vomiting, and some degree of constipation. Her presentation is typically consistent with viral gastroenteritis, however, the patient also has some degree of rectal stool impaction. Therefore, observation is to be tried. In the meantime , the patient can be observed. Her medications are to be continued. Should she not improve, then further evaluation with endoscopy to be considered. RECOMMENDATIONS: Per above discussion and per orders written in the chart. Thank you for asking me to participate in the care of this patient. Linh Saldaña M.D. DR: APRIL JOB#: [id number] CC: YULIET
[2018-05-17] MEDS: Miralax 17gm pkt ORAL SCH (22:27)
[2018-05-17] MEDS: Atorvastatin 20mg tab ORAL SCH (22:27)
[2018-05-17] MEDS: Sennosides 8.6mg ORAL SCH (22:27)
--- NOTE | 2018-05-17 23:52 | Consultation ---
History of Present Illness General Chief Complaint: Abdominal Pain Referring physician: SERAFIN JONES Reason for Consultation: ABDOMINAL PAIN Present Illness HPI 77-year-old woman with history of generalized intraabdominal discomfort. the pt has been confused agitated and pw waxing and waning of consciousness. The pt has been nt been able to provide meaningful hx. the pt has cognitive impairment she was admitted on Risperdal Allergies: Coded Allergies: PAPAYA (Verified Allergy, Intermediate, ITCH TO LIPS AND ORAL CAVITY, 10/23) Medication History Scheduled Acarbose (Acarbose), 50 MG PO TID, (Reported) Aspirin* (Aspir-Low*), 81 MG PO DAILY, (Reported) Atorvastatin Calcium* (Lipitor*), 20 MG PO QHS, (Reported) Brimonidine Tartrate* (Alphagan*), 1 DROP BOTH EYES TID, (Reported) Carvedilol* (Carvedilol*), 25 MG PO Q12HR, (Reported) Clonidine (Clonidine), 1 EACH TD ONCE A WEEK, (Reported) Docusate Sodium* (Docusate Sodium*), 100 MG ORAL THREE TIMES A DAY, (Reported) Famotidine (Famotidine), 20 MG ORAL TWICE A DAY, (Reported) Furosemide* (Lasix*), 40 MG PO DAILY, (Reported) Gabapentin* (Gabapentin*), 100 MG ORAL THREE TIMES A DAY, (Reported) Hydralazine Hcl* (Hydralazine Hcl*), 50 MG PO BID, (Reported) Insulin Aspart* (Novolog*), 0 SUBQ AC+HS, (Reported) Meloxicam* (Meloxicam*), 7.5 MG PO DAILY, (Reported) Metolazone (Metolazone), 2.5 MG PO DAILY, (Reported) Nifedipine Xl* (Procardia Xl*), 60 MG ORAL DAILY, (Reported) Olmesartan Med/Amlodipine/Hctz 40-5-12.5 (Tribenzor 40-5-12.5 Mg Tablet), 1 EACH PO DAILY, (Reported) Polyethylene Glycol 3350* (Miralax*), 17 GM ORAL DAILY, (Reported) Risperidone* (Risperdal*), 2 MG ORAL BEDTIME, (Reported) Sennosides (Senna), 17.2 MG PO BEDTIME, (Reported) Sitagliptin Phos/Metformin Hcl (Janumet 50-1,000 Mg Tablet), 1 EACH PO DAILY, ( Reported) Tramadol Hcl/Acetaminophen (Tramadol-Acetaminophn 37.5-325), 1 EACH PO PRN, ( Reported) Scheduled PRN Albuterol Sulfate* (Albuterol Sulfate Hhn*), 3 ML INH Q4H PRN for Shortness of Breath, (Reported) Clonidine Hcl (Clonidine Hcl), 0.1 MG PO Q6HR PRN for For High Blood Pressure, ( Reported) Mineral Oil (Mineral Oil), 30 ML PO DAILY PRN for Constipation, (Reported) Miscellaneous Medications Insulin Lispro (Humalog Kwikpen), Unknown Dose SQ, (Reported) Patient History Limited by: medical condition History Provided By: Patient, Medical Record Healthcare decision maker Resuscitation status Full Code Advanced Directive on File Yes Past Medical/Surgical History Past Medical/Surgical History: (1) Polyneuropathy (2) CKD (chronic kidney disease) (3) Constipation (4) Diabetes mellitus (5) Morbid obesity (6) Fecal impaction in rectum (7) Dehydration (8) Fecal impaction (9) CHF (congestive heart failure) (10) RLQ abdominal pain (11) Hypokalemia (12) Osteoarthritis Review of Systems Psychiatric: Reports: anxiety, depressed feelings, emotional problems Physical Exam General Appearance: lethargic, confused, agitated, obese Last 24 Hour Vital Signs Date Time Temp Pulse Resp B/P (MAP) Pulse Ox O2 Delivery O2 Flow Rate FiO2 05/17/18 22:28 84 142/82 05/17/18 20:00 98.2 84 20 142/82 (102) 98 98.2 05/17/18 19:10 Room Air 21 05/17/18 19:10 93 Room Air 21 05/17/18 19:09 67 18 Room Air 21 05/17/18 12:00 98.2 67 20 125/62 (83) 98 98.2 05/17/18 09:00 Nasal Cannula 2.0 05/17/18 08:55 71 125/59 05/17/18 08:55 71 125/59 05/17/18 08:20 Nasal Cannula 2.0 28 05/17/18 08:20 71 16 Nasal Cannula 2.0 28 05/17/18 08:20 96 Nasal Cannula 2.0 28 05/17/18 08:00 98.3 65 18 125/59 (81) 95 98.3 05/17/18 04:00 98.2 82 18 142/62 (88) 95 98.2 05/17/18 02:12 Nasal Cannula 2.0 05/17/18 01:11 Nasal Cannula 2.0 05/17/18 00:00 98.6 76 18 122/78 (93) 95 98.6 Intake and Output 05/16/18 05/17/18 19:00 07:00 Output Total 200 ml Balance -200 ml Output Urine Total 200 ml # Voids 3 # Bowel Movements 3 Laboratory Tests Test 05/17/18 06:55 White Blood Count 4.6 K/UL (4.8-10.8) L Red Blood Count 4.20 M/UL (4.20-5.40) Hemoglobin 12.9 G/DL (12.0-16.0) Hematocrit 38.5 % (37.0-47.0) Mean Corpuscular Volume 92 FL (80-99) Mean Corpuscular Hemoglobin 30.6 PG (27.0-31.0) Mean Corpuscular Hemoglobin Concent 33.4 G/DL (32.0-36.0) Red Cell Distribution Width 13.3 % (11.6-14.8) Platelet Count 196 K/UL (150-450) Mean Platelet Volume 8.7 FL (6.5-10.1) Neutrophils (%) (Auto) 62.4 % (45.0-75.0) Lymphocytes (%) (Auto) 25.9 % (20.0-45.0) Monocytes (%) (Auto) 7.3 % (1.0-10.0) Eosinophils (%) (Auto) 2.8 % (0.0-3.0) Basophils (%) (Auto) 1.7 % (0.0-2.0) Sodium Level 137 MMOL/L (136-145) Potassium Level 3.2 MMOL/L (3.5-5.1) L Chloride Level 100 MMOL/L (98-107) Carbon Dioxide Level 29 MMOL/L (21-32) Anion Gap 9 mmol/L (5-15) Blood Urea Nitrogen 19 mg/dL (7-18) H Creatinine 1.2 MG/DL (0.55-1.30) Estimat Glomerular Filtration Rate mL/min (>60) Glucose Level 309 MG/DL (74-106) H Calcium Level 9.3 MG/DL (8.5-10.1) Hepatitis A IgM Antibody Pending Hepatitis B Surface Antigen Pending Hepatitis B Core IgM Antibody Pending Hepatitis C Antibody Pending HIV (1&2) Antibody Rapid Negative (NEGATIVE) Microbiology Date/Time Source Procedure Growth Status 05/17/18 00:00 Rectum Received Height (Feet): 5 Height (Inches): 9.00 Weight (Pounds): 270 Medications Current Medications Medications (Trade) Dose Ordered Sig/Smooth Route PRN Reason Start Time Stop Time Status Last Admin Dose Admin Albuterol Sulfate (Proventil) 2.5 mg Q4H PRN HHN Shortness of Breath 05/17/18 02:30 05/22/18 02:29 Aspirin (Ecotrin) 81 mg DAILY ORAL 05/17/18 09:00 06/16/18 08:59 05/17/18 08:54 Atorvastatin Calcium (Lipitor) 20 mg QHS ORAL 05/17/18 21:00 06/16/18 20:59 05/17/18 22:27 Barium Sulfate (Readi-Cat 2) 450 ml NOW PRN ORAL Radiology Procedure 05/16/18 13:00 05/18/18 12:46 Brimonidine Tartrate (Alphagan) 1 drop TID BOTH EYES 05/17/18 09:00 06/16/18 08:59 05/17/18 18:27 Carvedilol (Coreg) 25 mg Q12HR ORAL 05/17/18 09:00 06/16/18 08:59 05/17/18 22:28 Clonidine HCl (Catapres TTS-1) 1 patch ONCE A WEEK TDERMAL 05/23/18 09:00 06/22/18 08:59 Dextrose (Dextrose 50%) 25 ml Q30M PRN IV Hypoglycemia 05/17/18 05:45 06/16/18 05:44 Dextrose (Dextrose 50%) 50 ml Q30M PRN IV Hypoglycemia 05/17/18 05:45 06/16/18 05:44 Docusate Sodium (Colace) 100 mg TID ORAL 05/16/18 18:00 06/15/18 17:59 05/17/18 08:55 Famotidine (Pepcid) 20 mg BID ORAL 05/17/18 18:00 06/16/18 17:59 05/17/18 18:28 Gabapentin (Neurontin) 100 mg THREE TIMES A DAY ORAL 05/17/18 09:00 06/16/18 08:59 05/17/18 18:28 Insulin Aspart (NovoLOG) BEFORE MEALS AND HS SUBQ 05/17/18 06:30 06/16/18 06:29 05/17/18 17:17 Iopamidol (Isovue-300 100ml) 100 ml NOW PRN INJ Radiology Procedure 05/16/18 13:00 Mineral Oil (Mineral Oil) 30 ml DAILY PRN ORAL Constipation 05/16/18 16:45 06/15/18 16:44 Nifedipine (Procardia XL) 60 mg DAILY ORAL 05/17/18 09:00 06/16/18 08:59 05/17/18 08:55 Polyethylene Glycol (Miralax) 17 gm BEDTIME ORAL 05/16/18 21:00 06/15/18 20:59 05/17/18 22:27 Potassium Chloride (K-Dur) 40 meq DAILY ORAL 05/17/18 11:00 06/16/18 10:59 05/17/18 11:24 Risperidone (RisperDAL) 2 mg BEDTIME ORAL 05/17/18 21:00 06/16/18 20:59 05/17/18 22:27 Sennosides (Senokot) 2 tab BEDTIME ORAL 05/17/18 21:00 06/16/18 20:59 05/17/18 22:27 Assessment/Plan Status: unchanged Assessment/Plan encephalopathy due to metabolic d/o/ medical condition -risperdal 2mg qhs -the pt lacks capacity to make decisions. Michael Christy MD May 17, 2018 23:52
[2018-05-18] VITALS: BP 116/87
[2018-05-18] MEDS: NovoLOG Insulin Flexpen SUBQ SCH ×4 (06:30→20:35)
[2018-05-18 08:00] VITALS: BP 141/67
[2018-05-18 08:14] LABS: ALANINE AMINOTRANSFERASE 13 U/L (12-78); ALBUMIN 3.3 G/DL (3.4-5.0); ALBUMIN/GLOBULIN RATIO 0.9 (1.0-2.7); ALKALINE PHOSPHATASE 132 U/L (46-116); ANION GAP 8 mmol/L (5-15); ASPARTATE AMINO TRANSFERASE 9 U/L (15-37); BILIRUBIN,TOTAL 0.6 MG/DL (0.2-1.0); BLOOD UREA NITROGEN 11 mg/dL (7-18); CALCIUM 9.6 MG/DL (8.5-10.1); CARBON DIOXIDE 28 MMOL/L (21-32); CHLORIDE 104 MMOL/L (98-107); CHOLESTEROL 149 MG/DL (< 200); CREATININE 0.9 MG/DL (0.55-1.30); HDL CHOLESTEROL 75 MG/DL (40-60); PHOSPHORUS 2.6 MG/DL (2.5-4.9); POTASSIUM 3.4 MMOL/L (3.5-5.1); SODIUM 140 MMOL/L (136-145); TRIGLYCERIDES 98 MG/DL (30-150)
[2018-05-18] MEDS: Aspirin EC 81mg tab ORAL SCH (09:00)
[2018-05-18] MEDS: Brimonidine 0.2% Opth Sol BOTH EYES SCH ×3 (09:00→17:03)
[2018-05-18] MEDS: Carvedilol 25mg Tab ORAL SCH ×2 (09:00→20:30)
[2018-05-18] MEDS: Docusate 100mg cap ORAL SCH ×3 (09:00→17:04)
[2018-05-18 12:00] VITALS: BP 141/77
--- NOTE | 2018-05-18 13:40 | Nephrology Progress Note ---
Assessment/Plan Problem List: (1) Fecal impaction (2) Dehydration (3) Hypokalemia Assessment (1) Fecal impaction in rectum (2) Morbid obesity (3) Diabetes mellitus (4) Constipation (5) Low K (6) HTN (7) Psych Ds Plan watch and replace electrolytes Per orders Subjective ROS Limited/Unobtainable: No Constitutional: Reports: malaise Objective Objective Last 24 Hour Vital Signs Date Time Temp Pulse Resp B/P (MAP) Pulse Ox O2 Delivery O2 Flow Rate FiO2 05/18/18 08:25 86 18 Room Air 21 05/18/18 08:25 93 Room Air 21 05/18/18 08:25 Room Air 21 05/18/18 00:00 99.0 76 19 116/87 (97) 96 99.0 05/17/18 22:28 84 142/82 05/17/18 21:00 Room Air 05/17/18 20:00 98.2 84 20 142/82 (102) 98 98.2 05/17/18 19:10 Room Air 21 05/17/18 19:10 93 Room Air 21 05/17/18 19:09 67 18 Room Air 21 Intake and Output 05/17/18 05/18/18 19:00 07:00 Intake Total 305 ml 1000 ml Balance 305 ml 1000 ml Intake Oral 305 ml 1000 ml # Voids 2 5 # Bowel Movements 1 1 Laboratory Tests 05/18/18 06:05: Sodium Level 140, Potassium Level 3.4L, Chloride Level 104, Carbon Dioxide Level 28, Anion Gap 8, Blood Urea Nitrogen 11, Creatinine 0.9, Estimat Glomerular Filtration Rate , Glucose Level 256H, Hemoglobin A1c 8.8H, Uric Acid 7.7H, Calcium Level 9.6, Phosphorus Level 2.6, Magnesium Level 1.3L, Total Bilirubin 0.6, Aspartate Amino Transf (AST/SGOT) 9L, Alanine Aminotransferase ( ALT/SGPT) 13, Alkaline Phosphatase 132H, Total Protein 6.9, Albumin 3.3L, Globulin 3.6, Albumin/Globulin Ratio 0.9L, Triglycerides Level 98, Cholesterol Level 149, LDL Cholesterol 42, HDL Cholesterol 75H, Cholesterol/HDL Ratio 2.0L, Vitamin B12 Level 1425H, Folate 14.4, Thyroid Stimulating Hormone (TSH) 1.230 Height (Feet): 5 Height (Inches): 9.00 Weight (Pounds): 270 Cardiovascular: normal rate Respiratory/Chest: lungs clear Abdomen: soft Tj Mancilla MD May 18, 2018 13:40
--- NOTE | 2018-05-18 15:12 | General Progress Note ---
Assessment/Plan Assessment/Plan Assessment - constipation - abd pain - possible gastroenteritis - DM Recommendations - po as tolerated - bowel regimen - follow symptoms - outpatient colonoscopy Subjective Allergies: Coded Allergies: PAPAYA (Verified Allergy, Intermediate, ITCH TO LIPS AND ORAL CAVITY, 10/23) Subjective feels better less pain Objective Last 24 Hour Vital Signs Date Time Temp Pulse Resp B/P (MAP) Pulse Ox O2 Delivery O2 Flow Rate FiO2 05/18/18 08:25 86 18 Room Air 21 05/18/18 08:25 93 Room Air 21 05/18/18 08:25 Room Air 21 05/18/18 00:00 99.0 76 19 116/87 (97) 96 99.0 05/17/18 22:28 84 142/82 05/17/18 21:00 Room Air 05/17/18 20:00 98.2 84 20 142/82 (102) 98 98.2 05/17/18 19:10 Room Air 21 05/17/18 19:10 93 Room Air 21 05/17/18 19:09 67 18 Room Air 21 Intake and Output 05/17/18 05/18/18 19:00 07:00 Intake Total 305 ml 1000 ml Balance 305 ml 1000 ml Intake Oral 305 ml 1000 ml # Voids 2 5 # Bowel Movements 1 1 Laboratory Tests 05/18/18 06:05: Sodium Level 140, Potassium Level 3.4L, Chloride Level 104, Carbon Dioxide Level 28, Anion Gap 8, Blood Urea Nitrogen 11, Creatinine 0.9, Estimat Glomerular Filtration Rate , Glucose Level 256H, Hemoglobin A1c 8.8H, Uric Acid 7.7H, Calcium Level 9.6, Phosphorus Level 2.6, Magnesium Level 1.3L, Total Bilirubin 0.6, Aspartate Amino Transf (AST/SGOT) 9L, Alanine Aminotransferase ( ALT/SGPT) 13, Alkaline Phosphatase 132H, Total Protein 6.9, Albumin 3.3L, Globulin 3.6, Albumin/Globulin Ratio 0.9L, Triglycerides Level 98, Cholesterol Level 149, LDL Cholesterol 42, HDL Cholesterol 75H, Cholesterol/HDL Ratio 2.0L, Vitamin B12 Level 1425H, Folate 14.4, Thyroid Stimulating Hormone (TSH) 1.230 Height (Feet): 5 Height (Inches): 9.00 Weight (Pounds): 270 Objective WDWN NCAT supple CTA RRR abd soft ND NT no edema Khorrami,Payman MD May 18, 2018 15:12
[2018-05-18 16:00] VITALS: BP 152/71
--- NOTE | 2018-05-18 19:38 | General Progress Note ---
Assessment/Plan Status: unchanged Assessment/Plan # Leukopenia. Multiple etiologies possible including most common which are medication-induced, infection versus viral syndrome. --> Hep panel pending, HIV negative --> US abd ordered to r/o cirrhosis and hepatosplenomegaly --> CT of the abdomen reviewed and no specific abdominal pathology noted --> peripheral smear has been ordered as well --> Currently, WBC unchanged # RLQ abd pain.CT negative. # Fecal Impaction. Recommend laxatives and enema. GI is following. # Morbid obesity. # Dehydration. Cont IVF. # DM. A1C goal less than 7. # Constipation. I GREATLY APPRECIATE THE CONSULTATION Subjective Date patient seen: May 18, 2018 ROS Limited/Unobtainable: Yes Allergies: Coded Allergies: PAPAYA (Verified Allergy, Intermediate, ITCH TO LIPS AND ORAL CAVITY, 10/23) Subjective Pt awake and alert. WBC unchanged. No acute events. Objective Last 24 Hour Vital Signs Date Time Temp Pulse Resp B/P (MAP) Pulse Ox O2 Delivery O2 Flow Rate FiO2 05/18/18 08:25 86 18 Room Air 21 05/18/18 08:25 93 Room Air 21 05/18/18 08:25 Room Air 21 05/18/18 00:00 99.0 76 19 116/87 (97) 96 99.0 05/17/18 22:28 84 142/82 05/17/18 21:00 Room Air 05/17/18 20:00 98.2 84 20 142/82 (102) 98 98.2 Intake and Output 05/17/18 05/18/18 19:00 07:00 Intake Total 305 ml 1000 ml Balance 305 ml 1000 ml Intake Oral 305 ml 1000 ml # Voids 2 5 # Bowel Movements 1 1 Laboratory Tests 05/18/18 06:05: Sodium Level 140, Potassium Level 3.4L, Chloride Level 104, Carbon Dioxide Level 28, Anion Gap 8, Blood Urea Nitrogen 11, Creatinine 0.9, Estimat Glomerular Filtration Rate , Glucose Level 256H, Hemoglobin A1c 8.8H, Uric Acid 7.7H, Calcium Level 9.6, Phosphorus Level 2.6, Magnesium Level 1.3L, Total Bilirubin 0.6, Aspartate Amino Transf (AST/SGOT) 9L, Alanine Aminotransferase ( ALT/SGPT) 13, Alkaline Phosphatase 132H, Total Protein 6.9, Albumin 3.3L, Globulin 3.6, Albumin/Globulin Ratio 0.9L, Triglycerides Level 98, Cholesterol Level 149, LDL Cholesterol 42, HDL Cholesterol 75H, Cholesterol/HDL Ratio 2.0L, Vitamin B12 Level 1425H, Folate 14.4, Thyroid Stimulating Hormone (TSH) 1.230 Height (Feet): 5 Height (Inches): 9.00 Weight (Pounds): 270 General Appearance: no apparent distress EENT: PERRL/EOMI Neck: normal alignment Cardiovascular: normal peripheral pulses Respiratory/Chest: no respiratory distress Abdomen: soft Johann Pérez MD May 18, 2018 19:38
[2018-05-18 20:00] VITALS: BP 151/69
[2018-05-18] MEDS: Miralax 17gm pkt ORAL SCH (20:30)
[2018-05-18] MEDS: Atorvastatin 20mg tab ORAL SCH (20:31)
[2018-05-18] MEDS: Sennosides 8.6mg ORAL SCH (20:32)
--- NOTE | 2018-05-18 21:09 | General Progress Note ---
Assessment/Plan Problem List: (1) Osteoarthritis ICD Codes: M19.90 - Unspecified osteoarthritis, unspecified site SNOMED: 507910072 (2) Constipation ICD Codes: K59.00 - Constipation, unspecified SNOMED: 56735369 (3) Diabetes mellitus ICD Codes: E11.9 - Type 2 diabetes mellitus without complications SNOMED: 97224737 (4) Morbid obesity ICD Codes: E66.01 - Morbid (severe) obesity due to excess calories SNOMED: 384849810 (5) Fecal impaction in rectum ICD Codes: K56.41 - Fecal impaction SNOMED: 13401814 (6) Dehydration ICD Codes: E86.0 - Dehydration SNOMED: 75214092 (7) RLQ abdominal pain ICD Codes: R10.31 - Right lower quadrant pain SNOMED: 011323727 (8) Hypokalemia ICD Codes: E87.6 - Hypokalemia SNOMED: 15666814 Status: progressing Assessment/Plan afebrile low k s/p replacement abdominal pain due to fecal impaction obesity confused had bm Subjective ROS Limited/Unobtainable: Yes Allergies: Coded Allergies: PAPAYA (Verified Allergy, Intermediate, ITCH TO LIPS AND ORAL CAVITY, 10/23) Objective Last 24 Hour Vital Signs Date Time Temp Pulse Resp B/P (MAP) Pulse Ox O2 Delivery O2 Flow Rate FiO2 05/18/18 20:30 68 151/69 05/18/18 19:59 Room Air 21 05/18/18 19:58 72 18 Room Air 21 05/18/18 19:58 94 Room Air 21 05/18/18 16:00 98.7 72 18 152/71 (98) 98 98.7 05/18/18 12:00 98.4 63 18 141/77 (98) 98 98.4 05/18/18 09:00 Room Air 05/18/18 08:25 86 18 Room Air 21 05/18/18 08:25 93 Room Air 21 05/18/18 08:25 Room Air 21 05/18/18 08:00 98.1 76 18 141/67 (91) 96 98.1 05/18/18 00:00 99.0 76 19 116/87 (97) 96 99.0 05/17/18 22:28 84 142/82 Intake and Output 05/17/18 05/18/18 19:00 07:00 Intake Total 305 ml 1000 ml Balance 305 ml 1000 ml Intake Oral 305 ml 1000 ml # Voids 2 5 # Bowel Movements 1 1 Laboratory Tests 05/18/18 06:05: Sodium Level 140, Potassium Level 3.4L, Chloride Level 104, Carbon Dioxide Level 28, Anion Gap 8, Blood Urea Nitrogen 11, Creatinine 0.9, Estimat Glomerular Filtration Rate , Glucose Level 256H, Hemoglobin A1c 8.8H, Uric Acid 7.7H, Calcium Level 9.6, Phosphorus Level 2.6, Magnesium Level 1.3L, Total Bilirubin 0.6, Aspartate Amino Transf (AST/SGOT) 9L, Alanine Aminotransferase ( ALT/SGPT) 13, Alkaline Phosphatase 132H, Total Protein 6.9, Albumin 3.3L, Globulin 3.6, Albumin/Globulin Ratio 0.9L, Triglycerides Level 98, Cholesterol Level 149, LDL Cholesterol 42, HDL Cholesterol 75H, Cholesterol/HDL Ratio 2.0L, Vitamin B12 Level 1425H, Folate 14.4, Thyroid Stimulating Hormone (TSH) 1.230 Height (Feet): 5 Height (Inches): 9.00 Weight (Pounds): 270 General Appearance: lethargic, confused Cardiovascular: regular rhythm Respiratory/Chest: lungs clear Abdomen: soft Nathalia Martinez MD May 18, 2018 21:08
[2018-05-19] VITALS: BP 144/85
[2018-05-19 04:00] VITALS: BP 137/76
[2018-05-19] MEDS: NovoLOG Insulin Flexpen SUBQ SCH ×5 (06:28→21:51)
--- NOTE | 2018-05-19 07:02 | General Progress Note ---
Assessment/Plan Assessment/Plan # Leukopenia. Multiple etiologies possible including most common which are medication-induced, infection versus viral syndrome. --> Hep panel negative, HIV negative --> US abd ordered to r/o cirrhosis and hepatosplenomegaly --> CT of the abdomen reviewed and no specific abdominal pathology noted --> peripheral smear has been ordered as well --> Currently, WBC unchanged # RLQ abd pain.CT negative. # Fecal Impaction. Recommend laxatives and enema. GI is following. --> stool softeners as needed # Morbid obesity. # Dehydration. Cont IVF. # DM. A1C goal less than 7. # Constipation. I GREATLY APPRECIATE THE CONSULTATION Subjective Constitutional: Denies: no symptoms, chills, diaphoresis, fever, malaise, weakness, other HEENT: Denies: no symptoms, eye pain, blurred vision, tearing, double vision, ear pain, ear discharge, nose pain, nose congestion, throat pain, throat swelling, mouth pain, mouth swelling, other Cardiovascular: Denies: no symptoms, chest pain, edema, irregular heart rate, lightheadedness, palpitations, syncope, other Respiratory: Denies: no symptoms, cough, orthopnea, shortness of breath, SOB with excertion, SOB at rest, sputum, stridor, wheezing, other Gastrointestinal/Abdominal: Denies: no symptoms, abdomen distended, abdominal pain, black stools, tarry stools, blood in stool, constipated, diarrhea, difficulty swallowing, nausea, poor appetite, poor fluid intake, rectal bleeding , vomiting, other Genitourinary: Denies: no symptoms, burning, discharge, frequency, flank pain, hematuria, incontinence, pain, urgency, other Neurologic/Psychiatric: Denies: no symptoms, anxiety, depressed, emotional problems, headache, numbness, paresthesia, pre-existing deficit, seizure, tingling, tremors, weakness, other Endocrine: Denies: no symptoms, excessive sweating, flushing, intolerance to cold, intolerance to heat, increased hunger, increased thirst, increased urine, unexplained weight gain, unexplained weight loss, other Allergies: Coded Allergies: PAPAYA (Verified Allergy, Intermediate, ITCH TO LIPS AND ORAL CAVITY, 10/23) Subjective Pt awake and alert. WBC unchanged. no events otherwise Objective Last 24 Hour Vital Signs Date Time Temp Pulse Resp B/P (MAP) Pulse Ox O2 Delivery O2 Flow Rate FiO2 05/19/18 04:00 97.2 70 20 137/76 (96) 98 97.2 05/19/18 00:00 98.0 77 20 144/85 (104) 98 98.0 05/18/18 21:00 Room Air 05/18/18 20:30 68 151/69 05/18/18 20:00 97.0 68 20 151/69 (96) 98 97.0 05/18/18 19:59 Room Air 21 05/18/18 19:58 72 18 Room Air 21 05/18/18 19:58 94 Room Air 21 05/18/18 16:00 98.7 72 18 152/71 (98) 98 98.7 05/18/18 12:00 98.4 63 18 141/77 (98) 98 98.4 05/18/18 09:00 Room Air 05/18/18 08:25 86 18 Room Air 05/18/18 08:25 93 Room Air 21 05/18/18 08:25 Room Air 21 05/18/18 08:00 98.1 76 18 141/67 (91) 96 98.1 Intake and Output 05/18/18 05/19/18 19:00 07:00 Intake Total 210 ml 1140 ml Balance 210 ml 1140 ml Intake Oral 150 ml 600 ml IV Total 60 ml 540 ml # Voids 3 4 # Bowel Movements 4 1 Height (Feet): 5 Height (Inches): 9.00 Weight (Pounds): 270 General Appearance: no apparent distress EENT: normal ENT inspection Neck: normal alignment Cardiovascular: regular rhythm Respiratory/Chest: normal breath sounds Abdomen: no organomegaly Extremities: non-tender Edema: 1+ Leg (L), 1+ Leg (R) Neurologic: alert Skin: warm/dry Johann Pérez MD May 19, 2018 07:02
[2018-05-19 08:00] VITALS: BP 132/76
[2018-05-19] MEDS: Docusate 100mg cap ORAL SCH ×3 (09:00→17:53)
[2018-05-19] MEDS: Aspirin EC 81mg tab ORAL SCH (09:00)
[2018-05-19] MEDS: Carvedilol 25mg Tab ORAL SCH ×2 (09:00→21:28)
[2018-05-19] MEDS: Brimonidine 0.2% Opth Sol BOTH EYES SCH ×3 (09:34→17:54)
--- NOTE | 2018-05-19 11:08 | GI Progress Note ---
Assessment/Plan Problems: (1) Fecal impaction ICD Codes: K56.41 - Fecal impaction SNOMED: 22276864 (2) Dehydration ICD Codes: E86.0 - Dehydration SNOMED: 37057542 (3) Fecal impaction in rectum ICD Codes: K56.41 - Fecal impaction SNOMED: 54560807 (4) Diabetes mellitus ICD Codes: E11.9 - Type 2 diabetes mellitus without complications SNOMED: 05755088 (5) Constipation ICD Codes: K59.00 - Constipation, unspecified SNOMED: 50317645 Status: stable Status Narrative Discussed with Dr. Sanchez. Assessment/Plan Assessment - constipation >> resolved - abd pain - possible gastroenteritis - DM Recommendations - po as tolerated - bowel regimen - follow symptoms - outpatient colonoscopy - okay for DC per GI standpoint Subjective Gastrointestinal/Abdominal: Reports: no symptoms Objective Last 24 Hour Vital Signs Date Time Temp Pulse Resp B/P (MAP) Pulse Ox O2 Delivery O2 Flow Rate FiO2 05/19/18 09:00 103 132/76 05/19/18 09:00 103 132/76 05/19/18 08:03 93 Room Air 21 05/19/18 08:03 Room Air 21 05/19/18 08:03 53 18 Room Air 21 05/19/18 08:00 98.1 103 20 132/76 (94) 95 98.1 05/19/18 07:30 Room Air 05/19/18 04:00 97.2 70 20 137/76 (96) 98 97.2 05/19/18 00:00 98.0 77 20 144/85 (104) 98 98.0 05/18/18 21:00 Room Air 05/18/18 20:30 68 151/69 05/18/18 20:00 97.0 68 20 151/69 (96) 98 97.0 05/18/18 19:59 Room Air 21 05/18/18 19:58 72 18 Room Air 21 05/18/18 19:58 94 Room Air 21 05/18/18 16:00 98.7 72 18 152/71 (98) 98 98.7 05/18/18 12:00 98.4 63 18 141/77 (98) 98 98.4 Intake and Output 05/18/18 05/19/18 19:00 07:00 Intake Total 210 ml 1500 ml Balance 210 ml 1500 ml Intake Oral 150 ml 840 ml IV Total 60 ml 660 ml # Voids 3 5 # Bowel Movements 4 3 Height (Feet): 5 Height (Inches): 9.00 Weight (Pounds): 270 General Appearance: WD/WN, no apparent distress, alert Cardiovascular: normal rate Respiratory/Chest: normal breath sounds, no respiratory distress Abdominal Exam: normal bowel sounds, non tender, soft Extremities: normal range of motion, non-tender Miller Gaines NP May 19, 2018 11:08
[2018-05-19 12:00] VITALS: BP 135/78
[2018-05-19 16:13] VITALS: BP 133/63
--- NOTE | 2018-05-19 16:25 | Nephrology Progress Note ---
Assessment/Plan Problem List: (1) Fecal impaction (2) Dehydration (3) Hypokalemia Assessment (1) Fecal impaction in rectum (2) Morbid obesity (3) Diabetes mellitus (4) Constipation (5) Low K (6) HTN (7) Psych Ds Plan watch and replace electrolytes Per orders DC IV DC planning Subjective ROS Limited/Unobtainable: No Objective Objective Last 24 Hour Vital Signs Date Time Temp Pulse Resp B/P (MAP) Pulse Ox O2 Delivery O2 Flow Rate FiO2 05/19/18 16:13 97.7 54 18 133/63 (86) 98 97.7 05/19/18 12:00 98.2 102 20 135/78 (97) 96 98.2 05/19/18 09:00 103 132/76 05/19/18 09:00 103 132/76 05/19/18 08:03 93 Room Air 21 05/19/18 08:03 Room Air 21 05/19/18 08:03 53 18 Room Air 21 05/19/18 08:00 98.1 103 20 132/76 (94) 95 98.1 05/19/18 07:30 Room Air 05/19/18 04:00 97.2 70 20 137/76 (96) 98 97.2 05/19/18 00:00 98.0 77 20 144/85 (104) 98 98.0 05/18/18 21:00 Room Air 05/18/18 20:30 68 151/69 05/18/18 20:00 97.0 68 20 151/69 (96) 98 97.0 05/18/18 19:59 Room Air 21 05/18/18 19:58 72 18 Room Air 21 05/18/18 19:58 94 Room Air 21 Intake and Output 05/18/18 05/19/18 19:00 07:00 Intake Total 210 ml 1500 ml Balance 210 ml 1500 ml Intake Oral 150 ml 840 ml IV Total 60 ml 660 ml # Voids 3 5 # Bowel Movements 4 3 Height (Feet): 5 Height (Inches): 9.00 Weight (Pounds): 270 General Appearance: no apparent distress Cardiovascular: normal rate Respiratory/Chest: lungs clear Abdomen: soft Tj Mancilla MD May 19, 2018 16:25
--- NOTE | 2018-05-19 17:01 | Diagnostic Imaging Report ---
Indication: Elevated alkaline phosphatase. Pain in the right lower quadrant abdomen Technique: Grayscale and duplex Doppler imaging of the abdomen performed. Comparison: None Findings: The liver is unremarkable. The gallbladder is noted. The demonstrated part of the pancreas, aorta and IVC show no abnormalities. Pancreas and aorta not well seen. Both kidneys appear unremarkable. The spleen is normal in size. There is no biliary ductal dilatation identified. Doppler evaluation of the main portal vein shows patency. There is no ascites. No hydronephrosis seen. Impression: No acute findings.
[2018-05-19 20:00] VITALS: BP 137/64
[2018-05-19] MEDS: Miralax 17gm pkt ORAL SCH (21:27)
[2018-05-19] MEDS: Sennosides 8.6mg ORAL SCH (21:27)
[2018-05-19] MEDS: Atorvastatin 20mg tab ORAL SCH (21:27)
--- NOTE | 2018-05-19 22:02 | General Progress Note ---
Assessment/Plan Problem List: (1) Osteoarthritis ICD Codes: M19.90 - Unspecified osteoarthritis, unspecified site SNOMED: 169509651 (2) Constipation ICD Codes: K59.00 - Constipation, unspecified SNOMED: 65907093 (3) Diabetes mellitus ICD Codes: E11.9 - Type 2 diabetes mellitus without complications SNOMED: 34372962 (4) Morbid obesity ICD Codes: E66.01 - Morbid (severe) obesity due to excess calories SNOMED: 286822464 (5) Fecal impaction in rectum ICD Codes: K56.41 - Fecal impaction SNOMED: 83935638 (6) Dehydration ICD Codes: E86.0 - Dehydration SNOMED: 63717556 (7) RLQ abdominal pain ICD Codes: R10.31 - Right lower quadrant pain SNOMED: 277139292 (8) Hypokalemia ICD Codes: E87.6 - Hypokalemia SNOMED: 84484860 Status: progressing Assessment/Plan low k s/p replacement abdominal pain due to fecal impaction obesity confused trommel tender poor historian Subjective ROS Limited/Unobtainable: Yes Allergies: Coded Allergies: PAPAYA (Verified Allergy, Intermediate, ITCH TO LIPS AND ORAL CAVITY, 10/23) Objective Last 24 Hour Vital Signs Date Time Temp Pulse Resp B/P (MAP) Pulse Ox O2 Delivery O2 Flow Rate FiO2 05/19/18 21:28 54 137/64 05/19/18 21:00 Room Air 05/19/18 20:19 95 Room Air 21 05/19/18 20:19 Room Air 21 05/19/18 20:19 63 18 Room Air 21 05/19/18 20:00 98.7 54 17 137/64 (88) 96 98.7 05/19/18 16:13 97.7 54 18 133/63 (86) 98 97.7 05/19/18 12:00 98.2 102 20 135/78 (97) 96 98.2 05/19/18 09:00 103 132/76 05/19/18 09:00 103 132/76 05/19/18 08:03 93 Room Air 21 05/19/18 08:03 Room Air 21 05/19/18 08:03 53 18 Room Air 21 05/19/18 08:00 98.1 103 20 132/76 (94) 95 98.1 05/19/18 07:30 Room Air 05/19/18 04:00 97.2 70 20 137/76 (96) 98 97.2 05/19/18 00:00 98.0 77 20 144/85 (104) 98 98.0 Intake and Output 05/18/18 05/19/18 19:00 07:00 Intake Total 210 ml 1500 ml Balance 210 ml 1500 ml Intake Oral 150 ml 840 ml IV Total 60 ml 660 ml # Voids 3 5 # Bowel Movements 4 3 Height (Feet): 5 Height (Inches): 9.00 Weight (Pounds): 270 General Appearance: confused Neck: supple Cardiovascular: normal peripheral pulses Respiratory/Chest: lungs clear Abdomen: tender Nathalia Martinez MD May 19, 2018 22:02
--- NOTE | 2018-05-19 23:59 | Psych Consult Progress Note ---
Psych Consult Progress Note Consult 05/18/18 the pts medical condition is unchanged the pt has waxing and waning of consciousness Vital Signs Last 24 Hour Vital Signs Date Time Temp Pulse Resp B/P (MAP) Pulse Ox O2 Delivery O2 Flow Rate FiO2 05/19/18 21:28 54 137/64 05/19/18 21:00 Room Air 05/19/18 20:19 95 Room Air 21 05/19/18 20:19 Room Air 21 05/19/18 20:19 63 18 Room Air 21 05/19/18 20:00 98.7 54 17 137/64 (88) 96 98.7 05/19/18 16:13 97.7 54 18 133/63 (86) 98 97.7 05/19/18 12:00 98.2 102 20 135/78 (97) 96 98.2 05/19/18 09:00 103 132/76 05/19/18 09:00 103 132/76 05/19/18 08:03 93 Room Air 21 05/19/18 08:03 Room Air 21 05/19/18 08:03 53 18 Room Air 21 05/19/18 08:00 98.1 103 20 132/76 (94) 95 98.1 05/19/18 07:30 Room Air 05/19/18 04:00 97.2 70 20 137/76 (96) 98 97.2 05/19/18 00:00 98.0 77 20 144/85 (104) 98 98.0 Medications Current Medications Medications (Trade) Dose Ordered Sig/Smooth Route PRN Reason Start Time Stop Time Status Last Admin Dose Admin Albuterol Sulfate (Proventil) 2.5 mg Q4H PRN HHN Shortness of Breath 05/17/18 02:30 05/22/18 02:29 Aspirin (Ecotrin) 81 mg DAILY ORAL 05/17/18 09:00 06/16/18 08:59 05/17/18 08:54 Atorvastatin Calcium (Lipitor) 20 mg QHS ORAL 05/17/18 21:00 06/16/18 20:59 05/19/18 21:27 Brimonidine Tartrate (Alphagan) 1 drop TID BOTH EYES 05/17/18 09:00 06/16/18 08:59 05/19/18 17:54 Carvedilol (Coreg) 25 mg Q12HR ORAL 05/17/18 09:00 06/16/18 08:59 05/19/18 21:28 Clonidine HCl (Catapres TTS-1) 1 patch ONCE A WEEK TDERMAL 05/23/18 09:00 06/22/18 08:59 Dextrose (Dextrose 50%) 25 ml Q30M PRN IV Hypoglycemia 05/19/18 13:00 06/18/18 12:59 Dextrose (Dextrose 50%) 50 ml Q30M PRN IV Hypoglycemia 05/19/18 13:00 06/18/18 12:59 Docusate Sodium (Colace) 100 mg TID ORAL 05/16/18 18:00 06/15/18 17:59 05/19/18 17:53 Famotidine (Pepcid) 20 mg BID ORAL 05/17/18 18:00 06/16/18 17:59 05/19/18 17:53 Gabapentin (Neurontin) 100 mg THREE TIMES A DAY ORAL 05/17/18 09:00 06/16/18 08:59 05/19/18 17:52 Insulin Aspart (NovoLOG) BEFORE MEALS AND HS SUBQ 05/19/18 11:30 06/18/18 11:29 05/19/18 21:51 Iopamidol (Isovue-300 100ml) 100 ml NOW PRN INJ Radiology Procedure 05/16/18 13:00 Mineral Oil (Mineral Oil) 30 ml DAILY PRN ORAL Constipation 05/16/18 16:45 06/15/18 16:44 Nifedipine (Procardia XL) 60 mg DAILY ORAL 05/17/18 09:00 06/16/18 08:59 05/17/18 08:55 Polyethylene Glycol (Miralax) 17 gm BEDTIME ORAL 05/16/18 21:00 06/15/18 20:59 05/19/18 21:27 Potassium Chloride (K-Dur) 40 meq TWICE A DAY ORAL 05/18/18 11:00 06/17/18 10:59 05/19/18 17:53 Risperidone (RisperDAL) 2 mg BEDTIME ORAL 05/17/18 21:00 06/16/18 20:59 05/19/18 21:27 Sennosides (Senokot) 2 tab BEDTIME ORAL 05/17/18 21:00 06/16/18 20:59 05/19/18 21:27 Problems: (1) Dehydration (2) Fecal impaction in rectum (3) Morbid obesity (4) Diabetes mellitus (5) Hypokalemia Assessment & Plan: encephalopathy due to metabolic d/o/ medical condition -risperdal 2mg qhs -the pt lacks capacity to make decisions. Michael Christy MD May 19, 2018 23:59
--- NOTE | 2018-05-19 23:59 | General Progress Note ---
Assessment/Plan Status: stable, progressing Assessment/Plan encephalopathy due to metabolic d/o/ medical condition -risperdal 2mg qhs -the pt lacks capacity to make decisions. Subjective Neurologic/Psychiatric: Reports: anxiety, depressed, emotional problems Allergies: Coded Allergies: PAPAYA (Verified Allergy, Intermediate, ITCH TO LIPS AND ORAL CAVITY, 10/23) Subjective the pt is less agitated Objective Last 24 Hour Vital Signs Date Time Temp Pulse Resp B/P (MAP) Pulse Ox O2 Delivery O2 Flow Rate FiO2 05/19/18 21:28 54 137/64 05/19/18 21:00 Room Air 05/19/18 20:19 95 Room Air 21 05/19/18 20:19 Room Air 21 05/19/18 20:19 63 18 Room Air 21 05/19/18 20:00 98.7 54 17 137/64 (88) 96 98.7 05/19/18 16:13 97.7 54 18 133/63 (86) 98 97.7 05/19/18 12:00 98.2 102 20 135/78 (97) 96 98.2 05/19/18 09:00 103 132/76 05/19/18 09:00 103 132/76 05/19/18 08:03 93 Room Air 21 05/19/18 08:03 Room Air 21 05/19/18 08:03 53 18 Room Air 21 05/19/18 08:00 98.1 103 20 132/76 (94) 95 98.1 05/19/18 07:30 Room Air 05/19/18 04:00 97.2 70 20 137/76 (96) 98 97.2 05/19/18 00:00 98.0 77 20 144/85 (104) 98 98.0 Intake and Output 05/18/18 05/19/18 19:00 07:00 Intake Total 210 ml 1500 ml Balance 210 ml 1500 ml Intake Oral 150 ml 840 ml IV Total 60 ml 660 ml # Voids 3 5 # Bowel Movements 4 3 Height (Feet): 5 Height (Inches): 9.00 Weight (Pounds): 270 General Appearance: no apparent distress, alert, confused, obese Michael Christy MD May 19, 2018 23:59
[2018-05-20] VITALS: BP 158/78
[2018-05-20 04:00] VITALS: BP 168/68
[2018-05-20 04:30] VITALS: BP 141/63
[2018-05-20] MEDS: NovoLOG Insulin Flexpen SUBQ SCH ×3 (06:43→16:20)
[2018-05-20 08:00] VITALS: BP 107/63
--- NOTE | 2018-05-20 08:38 | General Progress Note ---
Assessment/Plan Assessment/Plan # Leukopenia. multiple etiologies possible including most common which are medication-induced, infection versus viral syndrome. --> Hep panel negative, HIV negative --> US abd shows hsm/cirrhosis shows no acute findings --> CT of the abdomen reviewed and no specific abdominal pathology noted --> peripheral smear has been ordered as well --> Currently, WBC unchanged # RLQ abd pain.CT negative. # Fecal Impaction. Recommend laxatives and enema. GI is following. --> stool softeners as needed # Morbid obesity. # Dehydration. Cont IVF. # DM. A1C goal less than 7. # Constipation. I GREATLY APPRECIATE THE CONSULTATION Subjective Constitutional: Denies: no symptoms, chills, diaphoresis, fever, malaise, weakness, other HEENT: Denies: no symptoms, eye pain, blurred vision, tearing, double vision, ear pain, ear discharge, nose pain, nose congestion, throat pain, throat swelling, mouth pain, mouth swelling, other Cardiovascular: Denies: no symptoms, chest pain, edema, irregular heart rate, lightheadedness, palpitations, syncope, other Respiratory: Denies: no symptoms, cough, orthopnea, shortness of breath, SOB with excertion, SOB at rest, sputum, stridor, wheezing, other Gastrointestinal/Abdominal: Denies: no symptoms, abdomen distended, abdominal pain, black stools, tarry stools, blood in stool, constipated, diarrhea, difficulty swallowing, nausea, poor appetite, poor fluid intake, rectal bleeding , vomiting, other Genitourinary: Denies: no symptoms, burning, discharge, frequency, flank pain, hematuria, incontinence, pain, urgency, other Neurologic/Psychiatric: Denies: no symptoms, anxiety, depressed, emotional problems, headache, numbness, paresthesia, pre-existing deficit, seizure, tingling, tremors, weakness, other Endocrine: Denies: no symptoms, excessive sweating, flushing, intolerance to cold, intolerance to heat, increased hunger, increased thirst, increased urine, unexplained weight gain, unexplained weight loss, other Allergies: Coded Allergies: PAPAYA (Verified Allergy, Intermediate, ITCH TO LIPS AND ORAL CAVITY, 10/23) Subjective Pt awake and alert. wbc unchanged. no events otherwise. Objective Last 24 Hour Vital Signs Date Time Temp Pulse Resp B/P (MAP) Pulse Ox O2 Delivery O2 Flow Rate FiO2 05/20/18 04:30 141/63 (89) 05/20/18 04:00 99.3 63 20 168/68 (101) 94 99.3 05/20/18 00:00 99.4 63 20 158/78 (104) 94 99.4 05/19/18 21:28 54 137/64 05/19/18 21:00 Room Air 05/19/18 20:19 95 Room Air 21 05/19/18 20:19 Room Air 21 05/19/18 20:19 63 18 Room Air 21 05/19/18 20:00 98.7 54 17 137/64 (88) 96 98.7 05/19/18 16:13 97.7 54 18 133/63 (86) 98 97.7 05/19/18 12:00 98.2 102 20 135/78 (97) 96 98.2 05/19/18 09:00 103 132/76 05/19/18 09:00 103 132/76 Intake and Output 05/19/18 05/20/18 19:00 07:00 Intake Total 560 ml Balance 560 ml Intake Oral 560 ml # Voids 2 2 # Bowel Movements 2 Height (Feet): 5 Height (Inches): 9.00 Weight (Pounds): 270 General Appearance: lethargic EENT: TMs normal Neck: supple Cardiovascular: regular rhythm Respiratory/Chest: lungs clear Abdomen: non tender Extremities: non-tender Edema: 1+ Leg (L), 1+ Leg (R) Edema: mild edema Neurologic: alert Johann Pérez MD May 20, 2018 08:38
[2018-05-20] MEDS: Docusate 100mg cap ORAL SCH ×3 (09:00→18:00)
[2018-05-20] MEDS: Carvedilol 25mg Tab ORAL SCH (09:58)
[2018-05-20] MEDS: Aspirin EC 81mg tab ORAL SCH (09:58)
[2018-05-20] MEDS: Brimonidine 0.2% Opth Sol BOTH EYES SCH ×3 (10:07→13:20)
[2018-05-20 10:25] LABS: BASOPHILS % (AUTO) 1.4 % (0.0-2.0); HEMATOCRIT 39.7 % (37.0-47.0); HEMOGLOBIN 12.8 G/DL (12.0-16.0); LYMPHOCYTES % (AUTO) 26.4 % (20.0-45.0); MEAN CORPUSCULAR VOLUME 93 FL (80-99); MONOCYTES % (AUTO) 11.5 % (1.0-10.0); NEUTROPHILS % (AUTO) 57.8 % (45.0-75.0); PLATELET COUNT 195 K/UL (150-450); RED BLOOD COUNT 4.27 M/UL (4.20-5.40); WHITE BLOOD COUNT 6.1 K/UL (4.8-10.8)
[2018-05-20 12:00] VITALS: BP 129/59
--- NOTE | 2018-05-20 12:33 | Nephrology Progress Note ---
Assessment/Plan Problem List: (1) Fecal impaction (2) Dehydration (3) Hypokalemia Assessment (1) Fecal impaction in rectum (2) Morbid obesity (3) Diabetes mellitus (4) Constipation (5) Low K (6) HTN (7) Psych Ds Plan watch and replace electrolytes Per orders DC IV DC planning Subjective ROS Limited/Unobtainable: No Constitutional: Reports: malaise Objective Objective Last 24 Hour Vital Signs Date Time Temp Pulse Resp B/P (MAP) Pulse Ox O2 Delivery O2 Flow Rate FiO2 05/20/18 12:00 98.2 60 18 129/59 (82) 93 98.2 05/20/18 09:59 62 155/74 05/20/18 09:58 62 155/74 05/20/18 09:00 Room Air 05/20/18 08:00 98.4 58 17 107/63 (78) 94 98.4 05/20/18 07:22 64 16 Room Air 21 05/20/18 07:22 95 Room Air 21 05/20/18 07:22 Room Air 21 05/20/18 04:30 141/63 (89) 05/20/18 04:00 99.3 63 20 168/68 (101) 94 99.3 05/20/18 00:00 99.4 63 20 158/78 (104) 94 99.4 05/19/18 21:28 54 137/64 05/19/18 21:00 Room Air 05/19/18 20:19 95 Room Air 21 05/19/18 20:19 Room Air 21 05/19/18 20:19 63 18 Room Air 21 05/19/18 20:00 98.7 54 17 137/64 (88) 96 98.7 05/19/18 16:13 97.7 54 18 133/63 (86) 98 97.7 Intake and Output 05/19/18 05/20/18 19:00 07:00 Intake Total 560 ml Balance 560 ml Intake Oral 560 ml # Voids 2 2 # Bowel Movements 2 Laboratory Tests 05/20/18 10:00: White Blood Count 6.1, Red Blood Count 4.27, Hemoglobin 12.8, Hematocrit 39.7, Mean Corpuscular Volume 93, Mean Corpuscular Hemoglobin 30.1, Mean Corpuscular Hemoglobin Concent 32.4, Red Cell Distribution Width 14.0, Platelet Count 195, Mean Platelet Volume 9.7, Neutrophils (%) (Auto) 57.8, Lymphocytes (%) (Auto) 26.4, Monocytes (%) (Auto) 11.5H, Eosinophils (%) (Auto) 3.0, Basophils (%) ( Auto) 1.4 Height (Feet): 5 Height (Inches): 9.00 Weight (Pounds): 270 General Appearance: no apparent distress Respiratory/Chest: lungs clear, decreased breath sounds Abdomen: soft Tj Mancilla MD May 20, 2018 12:33
[2018-05-20] MEDS ORDERED: DOCUSATE SODIU100 MG ORAL (12:42)
[2018-05-20] MEDS ORDERED: CLONIDINE HCL0.1 MG PO (12:42)
[2018-05-20] MEDS ORDERED: FAMOTIDINE20 MG ORAL (12:43)
[2018-05-20] MEDS ORDERED: MIRALAX17 G2 ORAL (12:44)
[2018-05-20] MEDS ORDERED: MINERAL OIL30 ML PO (12:44)
[2018-05-20] MEDS ORDERED: NOVOLOG100 UNIT/3 SUBQ (12:45)
--- NOTE | 2018-05-20 14:34 | Infectious Diseases Prog Note ---
Assessment/Plan Assessment/Plan A; Abdominal pain resolved MRSA & VRE colonization Fecal impaction DM Dehydration Obesity P: observe off antibiotic Agree with discharge Subjective ROS Limited/Unobtainable: No Constitutional: Reports: no symptoms Respiratory: Reports: no symptoms Cardiovascular: Reports: no symptoms Gastrointestinal/Abdominal: Reports: other - abominal pain Allergies: Coded Allergies: PAPAYA (Verified Allergy, Intermediate, ITCH TO LIPS AND ORAL CAVITY, 10/23) Objective Vital Signs Last 24 Hour Vital Signs Date Time Temp Pulse Resp B/P (MAP) Pulse Ox O2 Delivery O2 Flow Rate FiO2 05/20/18 12:00 98.2 60 18 129/59 (82) 93 98.2 05/20/18 09:59 62 155/74 05/20/18 09:58 62 155/74 05/20/18 09:00 Room Air 05/20/18 08:00 98.4 58 17 107/63 (78) 94 98.4 05/20/18 07:22 64 16 Room Air 21 05/20/18 07:22 95 Room Air 21 05/20/18 07:22 Room Air 21 05/20/18 04:30 141/63 (89) 05/20/18 04:00 99.3 63 20 168/68 (101) 94 99.3 05/20/18 00:00 99.4 63 20 158/78 (104) 94 99.4 05/19/18 21:28 54 137/64 05/19/18 21:00 Room Air 05/19/18 20:19 95 Room Air 21 05/19/18 20:19 Room Air 21 05/19/18 20:19 63 18 Room Air 21 05/19/18 20:00 98.7 54 17 137/64 (88) 96 98.7 05/19/18 16:13 97.7 54 18 133/63 (86) 98 97.7 Height (Feet): 5 Height (Inches): 9.00 Weight (Pounds): 270 HEENT: other - blind Respiratory/Chest: lungs clear Cardiovascular: normal rate Abdomen: soft, non tender Extremities: no edema Neurologic/Psychiatric: alert, responsive Laboratory Tests Test 05/20/18 10:00 White Blood Count 6.1 K/UL (4.8-10.8) Red Blood Count 4.27 M/UL (4.20-5.40) Hemoglobin 12.8 G/DL (12.0-16.0) Hematocrit 39.7 % (37.0-47.0) Mean Corpuscular Volume 93 FL (80-99) Mean Corpuscular Hemoglobin 30.1 PG (27.0-31.0) Mean Corpuscular Hemoglobin Concent 32.4 G/DL (32.0-36.0) Red Cell Distribution Width 14.0 % (11.6-14.8) Platelet Count 195 K/UL (150-450) Mean Platelet Volume 9.7 FL (6.5-10.1) Neutrophils (%) (Auto) 57.8 % (45.0-75.0) Lymphocytes (%) (Auto) 26.4 % (20.0-45.0) Monocytes (%) (Auto) 11.5 % (1.0-10.0) H Eosinophils (%) (Auto) 3.0 % (0.0-3.0) Basophils (%) (Auto) 1.4 % (0.0-2.0) Current Medications Medications (Trade) Dose Ordered Sig/Smooth Route PRN Reason Start Time Stop Time Status Last Admin Dose Admin Albuterol Sulfate (Proventil) 2.5 mg Q4H PRN HHN Shortness of Breath 05/17/18 02:30 05/22/18 02:29 Aspirin (Ecotrin) 81 mg DAILY ORAL 05/17/18 09:00 06/16/18 08:59 05/20/18 09:58 Atorvastatin Calcium (Lipitor) 20 mg QHS ORAL 05/17/18 21:00 06/16/18 20:59 05/19/18 21:27 Brimonidine Tartrate (Alphagan) 1 drop TID BOTH EYES 05/17/18 09:00 06/16/18 08:59 05/20/18 13:20 Carvedilol (Coreg) 25 mg Q12HR ORAL 05/17/18 09:00 06/16/18 08:59 05/20/18 09:58 Clonidine HCl (Catapres TTS-1) 1 patch ONCE A WEEK TDERMAL 05/23/18 09:00 06/22/18 08:59 Clonidine HCl (Catapres Tab) 0.1 mg Q6H PRN ORAL For High Blood Pressure 05/20/18 06:15 11/8/18 06:14 Dextrose (Dextrose 50%) 25 ml Q30M PRN IV Hypoglycemia 05/19/18 13:00 06/18/18 12:59 Dextrose (Dextrose 50%) 50 ml Q30M PRN IV Hypoglycemia 05/19/18 13:00 06/18/18 12:59 Docusate Sodium (Colace) 100 mg TID ORAL 05/16/18 18:00 06/15/18 17:59 05/19/18 17:53 Famotidine (Pepcid) 20 mg BID ORAL 05/17/18 18:00 06/16/18 17:59 05/20/18 09:58 Gabapentin (Neurontin) 100 mg THREE TIMES A DAY ORAL 05/17/18 09:00 06/16/18 08:59 05/20/18 13:13 Insulin Aspart (NovoLOG) BEFORE MEALS AND HS SUBQ 05/19/18 11:30 06/18/18 11:29 05/20/18 11:36 Iopamidol (Isovue-300 100ml) 100 ml NOW PRN INJ Radiology Procedure 05/16/18 13:00 Mineral Oil (Mineral Oil) 30 ml DAILY PRN ORAL Constipation 05/16/18 16:45 06/15/18 16:44 Nifedipine (Procardia XL) 60 mg DAILY ORAL 05/17/18 09:00 06/16/18 08:59 05/20/18 09:59 Polyethylene Glycol (Miralax) 17 gm BEDTIME ORAL 05/16/18 21:00 06/15/18 20:59 05/19/18 21:27 Potassium Chloride (K-Dur) 40 meq TWICE A DAY ORAL 05/18/18 11:00 06/17/18 10:59 05/20/18 10:00 Risperidone (RisperDAL) 2 mg BEDTIME ORAL 05/17/18 21:00 06/16/18 20:59 05/19/18 21:27 Sennosides (Senokot) 2 tab BEDTIME ORAL 05/17/18 21:00 06/16/18 20:59 05/19/18 21:27 Jose Martinez MD May 20, 2018 14:34
--- NOTE | 2018-05-20 14:46 | GI Progress Note ---
Assessment/Plan Problems: (1) Fecal impaction ICD Codes: K56.41 - Fecal impaction SNOMED: 57570693 (2) Dehydration ICD Codes: E86.0 - Dehydration SNOMED: 08264232 (3) Fecal impaction in rectum ICD Codes: K56.41 - Fecal impaction SNOMED: 01550624 (4) Diabetes mellitus ICD Codes: E11.9 - Type 2 diabetes mellitus without complications SNOMED: 58382490 (5) Constipation ICD Codes: K59.00 - Constipation, unspecified SNOMED: 67170746 Status: doing well, stable Status Narrative Discussed with Dr. Sanchez. Assessment/Plan Assessment - constipation >> resolved - abd pain - possible gastroenteritis - DM Recommendations - po as tolerated - bowel regimen - follow symptoms - outpatient colonoscopy - okay for DC per GI standpoint Subjective Gastrointestinal/Abdominal: Reports: no symptoms Objective Last 24 Hour Vital Signs Date Time Temp Pulse Resp B/P (MAP) Pulse Ox O2 Delivery O2 Flow Rate FiO2 05/20/18 12:00 98.2 60 18 129/59 (82) 93 98.2 05/20/18 09:59 62 155/74 05/20/18 09:58 62 155/74 05/20/18 09:00 Room Air 05/20/18 08:00 98.4 58 17 107/63 (78) 94 98.4 05/20/18 07:22 64 16 Room Air 21 05/20/18 07:22 95 Room Air 21 05/20/18 07:22 Room Air 21 05/20/18 04:30 141/63 (89) 05/20/18 04:00 99.3 63 20 168/68 (101) 94 99.3 05/20/18 00:00 99.4 63 20 158/78 (104) 94 99.4 05/19/18 21:28 54 137/64 05/19/18 21:00 Room Air 05/19/18 20:19 95 Room Air 21 05/19/18 20:19 Room Air 21 05/19/18 20:19 63 18 Room Air 21 05/19/18 20:00 98.7 54 17 137/64 (88) 96 98.7 05/19/18 16:13 97.7 54 18 133/63 (86) 98 97.7 Intake and Output 05/19/18 05/20/18 19:00 07:00 Intake Total 560 ml Balance 560 ml Intake Oral 560 ml # Voids 2 2 # Bowel Movements 2 Laboratory Tests Test 05/20/18 10:00 White Blood Count 6.1 K/UL (4.8-10.8) Red Blood Count 4.27 M/UL (4.20-5.40) Hemoglobin 12.8 G/DL (12.0-16.0) Hematocrit 39.7 % (37.0-47.0) Mean Corpuscular Volume 93 FL (80-99) Mean Corpuscular Hemoglobin 30.1 PG (27.0-31.0) Mean Corpuscular Hemoglobin Concent 32.4 G/DL (32.0-36.0) Red Cell Distribution Width 14.0 % (11.6-14.8) Platelet Count 195 K/UL (150-450) Mean Platelet Volume 9.7 FL (6.5-10.1) Neutrophils (%) (Auto) 57.8 % (45.0-75.0) Lymphocytes (%) (Auto) 26.4 % (20.0-45.0) Monocytes (%) (Auto) 11.5 % (1.0-10.0) H Eosinophils (%) (Auto) 3.0 % (0.0-3.0) Basophils (%) (Auto) 1.4 % (0.0-2.0) Height (Feet): 5 Height (Inches): 9.00 Weight (Pounds): 270 General Appearance: WD/WN, no apparent distress, alert Cardiovascular: normal rate Respiratory/Chest: normal breath sounds, no respiratory distress Abdominal Exam: normal bowel sounds, non tender, soft Extremities: non-tender Miller Gaines FINANCIAL ADVISER May 20, 2018 14:46
[2018-05-20 16:00] VITALS: BP 138/68
[2018-05-20] MEDS ORDERED: Tubing IV Secondary IV ONE (19:19)
[2018-05-20] MEDS ORDERED: NS 275ml ONE (19:19)
--- NOTE | 2018-05-22 13:39 | Discharge Summary ---
Discharge Summary Discharge Summary _ DATE OF ADMISSION: 05/16/2018 DATE OF DISCHARGE: 05/20/2018 REASON FOR ADMISSION: 77 years old female with past medical history of COPD, hypertension, diabetes mellitus, osteoarthritis, depression, schizophrenia, congestive heart failure, presented with severe sharp right lower quadrant abdominal pain. Patient was confused and history was limited. Upon evaluation vital signs were stable. Laboratory workup revealed leukopenia WBC 4.6, stable hemoglobin and hematocrit. Potassium 3.1. BUN 21, creatinine 1.3. Urinalysis with possible evidence of UTI. Chest x-ray revealed borderline cardiomegaly. Central bronchial wall thickening and interstitial prominence likely on the basis of chronic bronchitis. CT of the abdomen and pelvis revealed evidence suggestive of rectal fecal impaction. No definite significant rectal thickening. Possible stercoral proctitis. Patient admitted with diagnoses of abdominal pain, fecal impaction, possible urinary tract infection, hypokalemia, dehydration. CONSULTANTS: ID specialist GI specialist Dr. Sanchez software development specialist Dr. Mancilla copy cutter/oncologist Dr. Crowder psychiatrist [facility] COURSE: Patient admitted and started on IV hydration . GI specialist seen and evaluated patient, and started patient on vigorous bowel regimen. Patient initially was started on clear liquid diet as tolerated. Crown Wheel Assembler closely followed. Renal parameters and electrolytes were closely monitored. Electrolytes were corrected as needed, and nephrotoxins were avoided. Patient initially was dehydrated ; with IV hydration BUN down to 11 and creatinine down to 0.9. Potassium was replaced and remained stable. Abdominal ultrasound revealed no acute findings. Oral fluids were pushed. Constipation resolved. Diet was advanced as tolerated, Antiemetics provided as needed. Patient was on GI prophylaxis. GI specialist recommended outpatient GI procedures. Infectious disease seen and evaluated patient. Urine culture revealed mixed gram-positive organisms. CT scan revealed stercoral proctitis, which was likely due to constipation and due to infectious etiology. Infectious disease specialist recommended to keep patient off antibiotics. Home medications resumed . Blood pressure was managed with beta ulises, and remained stable. Antiplatelet therapy with aspirin and statin were continued. Eyedrops continued. GI prophylaxis provided. Patient was able to tolerate diet. Blood sugar was managed with sliding scale of insulin as needed. Hemoglobin A1c- 8.8, not at goal. Patient will need further optimization of anti-glycemic regimen as outpatient. Supplemental oxygen provided as needed to keep pulse oximetry above 92%. Pulmonary toilet provided as needed. Rn Support Services seen the patient for leukopenia which may have multiply etiologies, including medication use, infection , viral syndrome. Hepatitis panel was negative . HIV status was negative. Ultrasound of the abdomen showed no acute findings. CT of the abdomen and pelvis revealed no specific abdominal pathology. Leukopenia resolved. Pain management was addressed , and pain was controlled. Psychiatrist seen and evaluated patient, and diagnosed patient with metabolic encephalopathy. Per psychiatrist, patient lacked capacity to make an informed decision. Psychiatric medication regimen was optimized. Patient clinically improved and was stable for transfer to long term facility for continuation of care. FINAL DIAGNOSES: Fecal impaction Constipation Possible gastroenteritis Abdominal pain, likely secondary to fecal impaction -resolved Dehydration Metabolic encephalopathy Diabetes mellitus Morbid obesity Leukopenia -resolved Hypertension Hypokalemia DISCHARGE MEDICATIONS: See Medication Reconciliation list. DISCHARGE INSTRUCTIONS: Patient was discharged to the long term facility. Follow up with medical doctor at the facility. I have been assigned to dictate discharge summary for this account. I was not involved in the patient's management. Imelda Edge NP May 22, 2018 13:39
== END 2018-05-20 19:20 | DRG 388 ==
LOC: EDUNIT# 12:30 → EDBD 12:30 → EMR 13:07 → 3E 14:54 → EDBEDREQ 18:07 → 3E 21:30 → 4E 05-19 22:52
DX: K56.41 Fecal impaction (principal); G93.41 Metabolic encephalopathy; N39.0 Urinary tract infection, site not specified; I50.32 Chronic diastolic (congestive) heart failure; I13.0 Hypertensive heart and chronic kidney disease with heart failure and stage 1 through stage 4 chronic kidney disease, or unspecified chronic kidney disease; E86.0 Dehydration; K59.00 Constipation, unspecified; E87.6 Hypokalemia; R10.31 Right lower quadrant pain; J44.9 Chronic obstructive pulmonary disease, unspecified; M19.90 Unspecified osteoarthritis, unspecified site; K52.9 Noninfective gastroenteritis and colitis, unspecified; E66.01 Morbid (severe) obesity due to excess calories; E11.22 Type 2 diabetes mellitus with diabetic chronic kidney disease; N18.9 Chronic kidney disease, unspecified; G62.9 Polyneuropathy, unspecified; H54.62 Unqualified visual loss, left eye, normal vision right eye; R26.2 Difficulty in walking, not elsewhere classified; K21.9 Gastro-esophageal reflux disease without esophagitis; F17.200 Nicotine dependence, unspecified, uncomplicated; Z22.322 Carrier or suspected carrier of Methicillin resistant Staphylococcus aureus
CPT/HCPCS: 36415; 71045; 74177; 76700; 80048; 80053; 80061; 81003; 82607; 82746; 82962; 83036; 83690; 83735; 84100; 84443; 84550; 85025; 86703; 86705; 86709; 86803; 87081; 87086; 87340; 94664; 94760; 99285; J1815; J8499

== ENCOUNTER 2018-12-25 17:15 | Inpatient (IN) | payer MEDICARE, MEDICAID ==
[~2018-12-25] VITALS: Ht 170.2 cm; Wt 94.8 kg
[~2018-12-25 17:15] MED LIST changes: +ALBUTEROL2.5 MG/3 M INH; +BRIMONIDINE TART5 ML BOTH EYES; +CLONIDINE HCL0.1 MG PO; +CLONIDINE1 EAC1 TD; +DOCUSATE SODIU100 MG ORAL; +FAMOTIDINE20 MG ORAL; +GABAPENTIN100 MG ORAL; +HUMALOG KW200 UNIT/1 SQ; +MINERAL OIL30 ML PO; +MIRALAX17 G2 ORAL; +NOVOLOG100 UNIT/3 SUBQ; +PROCARDIA XL90 M4 ORAL; +RISPERDAL2 MG ORAL; +SENNA8.6 M2 PO
--- NOTE | 2018-12-25 17:21 | NUR ---
ED Nurse Note: Pt BIBA from [facility] due to abnormal labs: Blood sugar 202, Hgb 8.8 taken on 12/16/18. AOx3, Bp 153/71. No complaint of pain at this time. Will cont to monitor.
[2018-12-25] MEDS ORDERED: METOPROLOL SUCC25 MG ORAL (17:29)
[2018-12-25 17:41] VITALS: BP 153/71
--- NOTE | 2018-12-25 17:42 | Emergency Room Report ---
History of Present Illness General Chief Complaint: Abnormal Labs Source: Patient, Medical Record Present Illness HPI 78-year-old female presents ED for evaluation. [facility] elevated blood sugar. Has history of diabetes. Per nursing staff blood sugar has been very difficult to control. BP also high. Denies chest pain or shortness of breath. Denies dizziness. Denies fevers or chills. No other aggravating relieving factors. Denies any other associated symptoms Allergies: Coded Allergies: PAPAYA (Verified Allergy, Intermediate, ITCH TO LIPS AND ORAL CAVITY, 10/23) Patient History Past Medical History: DM, HTN, COPD Pertinent Family History: none Social History: Denies: smoking, alcohol use, drug use Now: No Immunizations: UTD Reviewed Nursing Documentation: PMH: Agreed; PSxH: Agreed Nursing Documentation-PMH Past Medical History: No History, Except For Hx Cardiac Problems: No - CHF Hx Hypertension: Yes Hx COPD: Yes Hx Diabetes: Yes Hx Cancer: No Hx Gastrointestinal Problems: Yes Hx Neurological Problems: No - Neuropathy, Osteoarthritis Review of Systems All Other Systems: negative except mentioned in HPI Physical Exam Vital Signs Date Time Temp Pulse Resp B/P (MAP) Pulse Ox O2 Delivery O2 Flow Rate FiO2 12/25/18 17:17 98.2 68 18 96 Room Air Sp02 EP Interpretation: reviewed, normal General Appearance: no apparent distress, alert, GCS 15, non-toxic Head: normocephalic, atraumatic Eyes: bilateral eye normal inspection, bilateral eye PERRL ENT: hearing grossly normal, normal pharynx, no angioedema, normal voice Neck: full range of motion, supple/symm/no masses Respiratory: chest non-tender, lungs clear, normal breath sounds, speaking full sentences Cardiovascular #1: regular rate, rhythm, no edema Cardiovascular #2: 2+ carotid (R), 2+ carotid (L), 2+ radial (R), 2+ radial (L) , 2+ dorsalis pedis (R), 2+ dorsalis pedis (L) Gastrointestinal: normal bowel sounds, non tender, soft, non-distended, no guarding, no rebound Rectal: deferred Genitourinary: normal inspection, no CVA tenderness Musculoskeletal: back normal, gait/station normal, normal range of motion, non- tender Neurologic: alert, oriented x3, responsive, motor strength/tone normal, sensory intact, speech normal Psychiatric: judgement/insight normal, memory normal, mood/affect normal, no suicidal/homicidal ideation Reflexes: 3+ bicep (R), 3+ bicep (L), 3+ tricep (R), 3+ tricep (L), 3+ knee (R) , 3+ knee (L) Skin: normal color, no rash, warm/dry, well hydrated Lymphatic: no adenopathy Medical Decision Making Diagnostic Impression: Primary Impression: Uncontrolled diabetes mellitus with hyperglycemia Qualified Codes: E13.65 - Other specified diabetes mellitus with hyperglycemia Additional Impression: CHF (congestive heart failure) Qualified Codes: I50.9 - Heart failure, unspecified ER Course Hospital Course 78-year-old female presenting to ED with weakness, elevated fignerstick Differential diagnoses include: ETOH/drug ingestion, sepsis, DKA Clinical course Patient placed on stretcher. On third rigger. After initial history and physical I ordered labs, IV fluids, CXR, EKG Labs-glucose elevated, no evidence of DKA, no leukocytosis, and hb/hematocrit stable , UA negative Chest x-ray cardiomegaly EKG - sinus bradycardia, with twave inversions in lateral leads IVFs given. Case discussed with Dr. Martinez and he agreed to accept the patient to his service for further care and support i. I feel this is a highly complex case requiring extensive working including EKG/Rhythm strip, Xray/CT/US, Blood/urine lab work, repeat exams while in ED, and administration of strong opiates/narcotics for pain control, admission to hospital or close patient follow up. diagnosis - hyperglycemia, CHF admitted to floor in serious condition Labs Test 12/25/18 17:38 12/25/18 17:45 White Blood Count 4.6 K/UL (4.8-10.8) Red Blood Count 4.02 M/UL (4.20-5.40) Hemoglobin 11.7 G/DL (12.0-16.0) Hematocrit 35.4 % (37.0-47.0) Mean Corpuscular Volume 88 FL (80-99) Mean Corpuscular Hemoglobin 29.1 PG (27.0-31.0) Mean Corpuscular Hemoglobin Concent 33.1 G/DL (32.0-36.0) Red Cell Distribution Width 13.5 % (11.6-14.8) Platelet Count 182 K/UL (150-450) Mean Platelet Volume 8.5 FL (6.5-10.1) Neutrophils (%) (Auto) 49.0 % (45.0-75.0) Lymphocytes (%) (Auto) 41.7 % (20.0-45.0) Monocytes (%) (Auto) 5.4 % (1.0-10.0) Eosinophils (%) (Auto) 2.0 % (0.0-3.0) Basophils (%) (Auto) 1.9 % (0.0-2.0) Sodium Level 138 MMOL/L (136-145) Potassium Level 3.4 MMOL/L (3.5-5.1) Chloride Level 102 MMOL/L (98-107) Carbon Dioxide Level 28 MMOL/L (21-32) Anion Gap 8 mmol/L (5-15) Blood Urea Nitrogen 6 mg/dL (7-18) Creatinine 0.8 MG/DL (0.55-1.30) Estimat Glomerular Filtration Rate mL/min (>60) Glucose Level 250 MG/DL (74-106) Calcium Level 9.4 MG/DL (8.5-10.1) Magnesium Level 1.4 MG/DL (1.8-2.4) Total Bilirubin 0.3 MG/DL (0.2-1.0) Aspartate Amino Transf (AST/SGOT) 9 U/L (15-37) Alanine Aminotransferase (ALT/SGPT) 7 U/L (12-78) Alkaline Phosphatase 145 U/L (46-116) Total Protein 7.0 G/DL (6.4-8.2) Albumin 3.1 G/DL (3.4-5.0) Globulin 3.9 g/dL Albumin/Globulin Ratio 0.8 (1.0-2.7) Acetone Level Negative (NEGATIVE) Urine Color Pale yellow Urine Appearance Clear Urine pH 8 (4.5-8.0) Urine Specific [place] 1.010 (1.005-1.035) Urine Protein Negative (NEGATIVE) Urine Glucose (UA) 1+ (NEGATIVE) Urine Ketones Negative (NEGATIVE) Urine Blood 1+ (NEGATIVE) Urine Nitrite Negative (NEGATIVE) Urine Bilirubin Negative (NEGATIVE) Urine Urobilinogen Normal MG/DL (0.0-1.0) Urine Leukocyte Esterase 3+ (NEGATIVE) Urine RBC 2-4 /HPF (0 - 2) Urine WBC 5-10 /HPF (0 - 2) Urine Squamous Epithelial Cells Few /LPF (NONE/OCC) Urine Bacteria Few /HPF (NONE) EKG Diagnostic Results Rate: bradycardiac Rhythm: NSR ST Segments: other - twave inversions in lateral leads ASA given to the pt in ED: No Rhythm Strip Diag. Results EP Interpretation: yes Rhythm: NSR, no PVC's, no ectopy Chest X-Ray Diagnostic Results Chest X-Ray Diagnostic Results : Chest X-Ray Ordered: Yes # of Views/Limited/Complete: 1 View Indication: Other EP Interpretation: Yes Interpretation: no consolidation, no effusion, no pneumothorax, no acute cardiopulmonary disease, other - cardiomegaly Impression: Other Electronically Signed by: Electronically signed by Scott Chris MD Last Vital Signs Date Time Temp Pulse Resp B/P (MAP) Pulse Ox O2 Delivery O2 Flow Rate FiO2 12/25/18 17:17 98.2 68 18 96 Room Air Status: improved Disposition: ADMITTED INPATIENT Condition: Serious Scott Chris MD December 25, 2018 17:42
--- NOTE | 2018-12-25 17:48 | NUR ---
ED Nurse Note: Blood and urine collected and sent to lab.
[2018-12-25 18:01] LABS: APPEARANCE,URINE CLEAR; BILIRUBIN, URINE NEGATIVE (NEGATIVE); COLOR,URINE PALE YELLOW; GLUCOSE, URINE (UA) 1+ (NEGATIVE); KETONES,URINE NEGATIVE (NEGATIVE); LEUKOCYTE ESTERASE ,URINE 3+ (NEGATIVE); NITRITE,URINE NEGATIVE (NEGATIVE); PH,URINE 8 (4.5-8.0); PROTEIN,URINE NEGATIVE (NEGATIVE); UROBILINOGEN,URINE NORMAL MG/DL (0.0-1.0)
[2018-12-25 18:05] VITALS: BP 163/75
[2018-12-25 18:08] LABS: BASOPHILS % (AUTO) 1.9 % (0.0-2.0); HEMATOCRIT 35.4 % (37.0-47.0); HEMOGLOBIN 11.7 G/DL (12.0-16.0); LYMPHOCYTES % (AUTO) 41.7 % (20.0-45.0); MEAN CORPUSCULAR VOLUME 88 FL (80-99); MONOCYTES % (AUTO) 5.4 % (1.0-10.0); PLATELET COUNT 182 K/UL (150-450); RED BLOOD COUNT 4.02 M/UL (4.20-5.40); RED CELL DISTRIBUTION WIDTH 13.5 % (11.6-14.8); WHITE BLOOD COUNT 4.6 K/UL (4.8-10.8)
[2018-12-25 18:09] LABS: ANION GAP 8 mmol/L (5-15); BLOOD UREA NITROGEN 6 mg/dL (7-18); CALCIUM 9.4 MG/DL (8.5-10.1); CARBON DIOXIDE 28 MMOL/L (21-32); CHLORIDE 102 MMOL/L (98-107); CREATININE 0.8 MG/DL (0.55-1.30); POTASSIUM 3.4 MMOL/L (3.5-5.1); SODIUM 138 MMOL/L (136-145)
--- NOTE | 2018-12-25 18:10 | NUR ---
ED Nurse Note: Pt had a bowel movement at this time, soft brownish stool with small amount.
[2018-12-25 18:14] LABS: ALANINE AMINOTRANSFERASE 7 U/L (12-78); ALBUMIN 3.1 G/DL (3.4-5.0); ALBUMIN/GLOBULIN RATIO 0.8 (1.0-2.7); ALKALINE PHOSPHATASE 145 U/L (46-116); ASPARTATE AMINO TRANSFERASE 9 U/L (15-37); BILIRUBIN,TOTAL 0.3 MG/DL (0.2-1.0)
--- NOTE | 2018-12-25 18:43 | NUR ---
ED Nurse Note: Endorsed medications and re-assessments to ERNESTO Johnson.
--- NOTE | 2018-12-25 18:43 | NUR ---
ED Nurse Note: Report given to ERNESTO Johnson at ext [phone]. Pt to be transfered [facility] per protocol with all belongings.
--- NOTE | 2018-12-25 18:45 | NUR ---
NURSE NOTES: received report from Er. Concha RN.
--- NOTE | 2018-12-25 19:34 | NUR ---
HAND-OFF: Report given to ERNESTO Smith.
--- NOTE | 2018-12-25 19:45 | NUR ---
NURSE NOTES: Received patient awake in bed, able to verbalize needs, at the bedside, AOx3. IV access asymptomatic. Awaiting admission orders from Dr Martinez. No s/s of acute distress.
[2018-12-25 20:00] VITALS: BP 187/86
[2018-12-25] MEDS: Sennosides 8.6mg tab ORAL SCH (21:00)
[2018-12-25] MEDS ORDERED: Albuterol ud Inhalation HHN PRN (21:00)
[2018-12-25] MEDS ORDERED: Mineral Oil 30ml ud ORAL PRN (21:00)
[2018-12-25] MEDS: Carvedilol 25mg Tab ORAL SCH (21:58)
[2018-12-25] MEDS: Atorvastatin 20mg tab ORAL SCH (21:58)
[2018-12-25] MEDS: HydrALAZINE 25mg tab ORAL SCH (21:58)
[2018-12-25] MEDS ORDERED: NS w/KCl 20mEq 1000ml 1,000 ML IV SCH (22:00)
[2018-12-25] MEDS ORDERED: NovoLOG Insulin Flexpen SUBQ SCH (22:00)
[2018-12-25] MEDS: NovoLOG Insulin Flexpen SUBQ SCH (23:01)
[2018-12-26] VITALS: BP 172/83
[2018-12-26 04:00] VITALS: BP 148/73
[2018-12-26] MEDS: HydrALAZINE 25mg tab ORAL SCH ×3 (05:44→21:22)
[2018-12-26] MEDS: NovoLOG Insulin Flexpen SUBQ SCH ×4 (06:06→21:24)
[2018-12-26] MEDS ORDERED: NovoLOG Insulin Flexpen SUBQ SCH (06:30)
--- NOTE | 2018-12-26 07:22 | NUR ---
HAND-OFF: Report given to HILDA Pop.
[2018-12-26 07:32] LABS: BASOPHILS % (AUTO) 1.3 % (0.0-2.0); HEMATOCRIT 35.1 % (37.0-47.0); HEMOGLOBIN 11.8 G/DL (12.0-16.0); LYMPHOCYTES % (AUTO) 38.5 % (20.0-45.0); MEAN CORPUSCULAR VOLUME 89 FL (80-99); MONOCYTES % (AUTO) 7.3 % (1.0-10.0); PLATELET COUNT 183 K/UL (150-450); RED BLOOD COUNT 3.95 M/UL (4.20-5.40); WHITE BLOOD COUNT 4.7 K/UL (4.8-10.8)
[2018-12-26 07:53] LABS: % IRON SATURATION 23 % (15-50); IRON 45 ug/dL (50-175); TOTAL IRON BINDING CAPACITY 193 ug/dL (250-450)
[2018-12-26 07:54] LABS: ALANINE AMINOTRANSFERASE 9 U/L (12-78); ALBUMIN 2.9 G/DL (3.4-5.0); ALBUMIN/GLOBULIN RATIO 0.8 (1.0-2.7); ALKALINE PHOSPHATASE 132 U/L (46-116); ANION GAP 7 mmol/L (5-15); ASPARTATE AMINO TRANSFERASE 7 U/L (15-37); BILIRUBIN,TOTAL 0.5 MG/DL (0.2-1.0); BLOOD UREA NITROGEN 9 mg/dL (7-18); CALCIUM 9.6 MG/DL (8.5-10.1); CARBON DIOXIDE 27 MMOL/L (21-32); CHLORIDE 106 MMOL/L (98-107); CREATININE 0.9 MG/DL (0.55-1.30); FERRITIN 49 NG/ML (8-388); PHOSPHORUS 3.6 MG/DL (2.5-4.9); POTASSIUM 3.2 MMOL/L (3.5-5.1); SODIUM 140 MMOL/L (136-145)
[2018-12-26 08:00] VITALS: BP 113/57
[2018-12-26] MEDS: Docusate 100mg cap ORAL SCH ×3 (08:45→17:07)
[2018-12-26] MEDS: Miralax 17gm pkt ORAL SCH (08:45)
[2018-12-26] MEDS: Brimonidine 0.2% Opth Sol BOTH EYES SCH ×3 (08:45→17:08)
[2018-12-26] MEDS: Aspirin EC 81mg tab ORAL SCH (08:45)
[2018-12-26] MEDS: Carvedilol 25mg Tab ORAL SCH ×2 (08:46→21:21)
[2018-12-26] MEDS ORDERED: Furosemide 40mg tab ORAL SCH (09:00)
[2018-12-26] MEDS ORDERED: Precose 50mg tab ORAL SCH (09:00)
[2018-12-26] MEDS ORDERED: metOLazone 2.5 MG TAB ORAL SCH (09:00)
--- NOTE | 2018-12-26 09:12 | NUR ---
NURSE NOTES: per director of pharmacyChantelle venegas. procose not available and pharm will notify MD and will have it avail for tomorrow.
--- NOTE | 2018-12-26 09:45 | NUR ---
NURSE NOTES: AWARE OF THE ABNORMAL LAB RESULTS TODAY. NEW ORDER PLACED AND IMPLEMENTED. WILL CONT TO MONITOR.
--- NOTE | 2018-12-26 11:55 | Diagnostic Imaging Report ---
Indication: Dyspnea Comparison: 05/16/2018 A single view chest radiograph was obtained. Findings: Cardiomediastinal appearance is within normal limits for age. The lungs are clear. Pulmonary vascularity is appropriate. The diaphragmatic contour is smooth and costophrenic angles are sharp. No pleural effusions are identified. The bones are unremarkable. Impression: No acute findings
[2018-12-26 12:00] VITALS: BP 118/62
--- NOTE | 2018-12-26 12:02 | NUR ---
OUTCOMES SPECIALISTPAPER COUNTER 78 Y/O [facility]EM[facility] CC:ABNORMAL LABS SI;UNCONTROLLED HYPERGLYCEMIA VS: BP 202/89, P 68, T 98.2, RR 18, SpO2 96 WBC 4.7, RBC 3.95, H&H 11.8/35.1, K 3.2 IS:MAGNESIUM SULFATE 100ml IVPB NS x1L IV RISPERIDONE 2mg LIPITOR 20mg ADMITTED TO MED/SURG [facility]
--- NOTE | 2018-12-26 14:35 | Consultation ---
Consult Note Consult Note asked to evaluate at the request of Dr Collado for BP and fluid/ electrolyte management 78-year-old female presents ED for evaluation. [facility] for elevated blood sugar. Has history of diabetes. Per nursing staff blood sugar has been very difficult to control. BP also high. Denies chest pain or shortness of breath. Denies dizziness. Denies fevers or chills. No other aggravating relieving factors. Denies any other associated symptoms Allergies: PAPAYA (Verified Allergy, Intermediate, ITCH TO LIPS AND ORAL CAVITY, 10/23) Past Medical History: DM, HTN, COPD Pertinent Family History: none Social History: Denies: smoking, alcohol use, drug use Immunizations: UTD Reviewed Nursing Documentation: PMH: Agreed; PSxH: Agreed Past Medical History: No History, Except For Hx Cardiac Problems: No - CHF Hx Hypertension: Yes Hx COPD: Yes Hx Diabetes: Yes Hx Gastrointestinal Problems: Yes Hx Neurological Problems: No - Neuropathy, Osteoarthritis rxamined data reviewed Assessment/Plan UTI DM OOC Anemia HTN Low K Low Mg antibiotics hold diuretics 2D echo BS and BP check Anemia Tj Jon MD December 26, 2018 14:35
--- NOTE | 2018-12-26 14:58 | NUR ---
NURSE NOTES: PATIENT REFUSED FOR 2D ECHO FOR TODAY ACCDG TO [facility]. THEY WILL COME BACK AND DO IT TOMORROW. WILL CONT TO MONITOR.
[2018-12-26 16:00] VITALS: BP 122/65
[2018-12-26] MEDS: metFORMIN 500mg tab ORAL SCH (17:07)
--- NOTE | 2018-12-26 19:09 | NUR ---
HAND-OFF: Report given to Sarah.
[2018-12-26 20:00] VITALS: BP 140/74
--- NOTE | 2018-12-26 20:10 | NUR ---
NURSE NOTES: Received patient awake in bed, confused, no c/o pain, no s/s of acute distress. contacted and was able to re-orient patient. Will monitor blood glucose closely.
[2018-12-26] MEDS: Atorvastatin 20mg tab ORAL SCH (21:20)
[2018-12-26] MEDS: Sennosides 8.6mg tab ORAL SCH (21:21)
[2018-12-27] VITALS: BP 118/61
--- NOTE | 2018-12-27 00:15 | Consultation ---
DATE OF CONSULTATION: 12/26/2018 INFECTIOUS DISEASES CONSULTATION CONSULTING PHYSICIAN: Jose Martinez M.D. PRIMARY ATTENDING PHYSICIAN: Nathalia Martinez M.D. REASON FOR CONSULT: Pyuria. HISTORY OF PRESENT ILLNESS: This is a 78-year-old female, admitted yesterday from nursing facility because of abnormal labs. She had elevated blood sugar and also had hypertension. UA showed mild pyuria. PAST MEDICAL HISTORY: Significant for diabetes type 2, hypertension, COPD, polyneuropathy. 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 ALLERGIES: She is allergic to papaya. MEDICATIONS: Magnesium sulfate, Colace, acarbose, aspirin, Alphagan, famotidine, Lasix, meloxicam, nifedipine, MiraLAX, potassium chloride, carvedilol, albuterol, atorvastatin, mineral oil, sennosides, clonidine. SOCIAL HISTORY: [facility] resident. Originally is from [facility]. No history of alcohol, drug abuse, or smoking. She is single, has grown up children. REVIEW OF SYSTEMS: The patient had no fever, no chills. Blind in the left eye. No coughing. No nausea. No vomiting. No diarrhea. She has constipation. No problem passing urine. PHYSICAL EXAMINATION: VITAL SIGNS: Temperature 98.2, pulse 66, blood pressure 113/57. GENERAL APPEARANCE: No acute distress. Well developed. HEAD AND NECK: [place] conjunctivae. HEART: Normal rate. LUNGS: Clear. ABDOMEN: Soft and nontender. EXTREMITIES: No edema. NEUROLOGIC: Awake, alert, oriented x3. LABORATORY AND DIAGNOSTIC DATA: WBC 4.7, hemoglobin 11.8, hematocrit 35.1, and platelets 123,000. Sodium 140, potassium 3.2, chloride 106, bicarbonate 27, BUN 9, creatinine 0.9, and glucose 264. UA showed wbc's of 5 to 10, leukocyte esterase 3+, and nitrite negative. IMPRESSION: 1. Pyuria, doubt UTI. The patient has no systemic localized symptoms related to UTI. 2. Uncontrolled diabetes mellitus. 3. Hypertension. 4. Polyneuropathy. 5. Left eye blindness. 6. Osteoarthritis. RECOMMENDATION: Observe off antibiotic. At the end of my exam, I thank Dr. Martinez for involving me in the care of this patient. Jose Martinez M.D. DR: TERESO JOB#: [id number] CC: YULIET
[2018-12-27 04:00] VITALS: BP 132/61
[2018-12-27] MEDS: metFORMIN 500mg tab ORAL SCH ×3 (06:08→16:57)
[2018-12-27] MEDS: HydrALAZINE 25mg tab ORAL SCH ×3 (06:08→22:00)
[2018-12-27] MEDS: NovoLOG Insulin Flexpen SUBQ SCH ×4 (06:10→20:49)
[2018-12-27 06:12] LABS: BASOPHILS % (AUTO) 1.4 % (0.0-2.0); HEMATOCRIT 40.1 % (37.0-47.0); HEMOGLOBIN 12.9 G/DL (12.0-16.0); LYMPHOCYTES % (AUTO) 36.6 % (20.0-45.0); MEAN CORPUSCULAR VOLUME 91 FL (80-99); MONOCYTES % (AUTO) 7.6 % (1.0-10.0); NEUTROPHILS % (AUTO) 50.5 % (45.0-75.0); PLATELET COUNT 204 K/UL (150-450); RED BLOOD COUNT 4.42 M/UL (4.20-5.40); RED CELL DISTRIBUTION WIDTH 14.3 % (11.6-14.8); WHITE BLOOD COUNT 4.8 K/UL (4.8-10.8)
[2018-12-27 06:38] LABS: ALANINE AMINOTRANSFERASE 11 U/L (12-78); ALBUMIN 3.2 G/DL (3.4-5.0); ALBUMIN/GLOBULIN RATIO 0.8 (1.0-2.7); ALKALINE PHOSPHATASE 148 U/L (46-116); ANION GAP 7 mmol/L (5-15); ASPARTATE AMINO TRANSFERASE 7 U/L (15-37); BILIRUBIN,TOTAL 0.4 MG/DL (0.2-1.0); BLOOD UREA NITROGEN 12 mg/dL (7-18); CARBON DIOXIDE 29 MMOL/L (21-32); CHLORIDE 104 MMOL/L (98-107); CHOLESTEROL 129 MG/DL (< 200); HDL CHOLESTEROL 64 MG/DL (40-60); POTASSIUM 3.9 MMOL/L (3.5-5.1); SODIUM 140 MMOL/L (136-145); TRIGLYCERIDES 107 MG/DL (30-150)
--- NOTE | 2018-12-27 07:10 | NUR ---
HAND-OFF: Report given to ERNESTO Cortés.
--- NOTE | 2018-12-27 07:56 | NUR ---
NURSE NOTES: Received report from ERNESTO Smith. Pt in bed, talkative, no complaints of pain, no apparent distress noted, bed in lowest position, call light within reach.
[2018-12-27 08:00] VITALS: BP 135/70
[2018-12-27] MEDS: Carvedilol 25mg Tab ORAL SCH ×2 (08:44→20:48)
[2018-12-27] MEDS: Brimonidine 0.2% Opth Sol BOTH EYES SCH ×3 (08:44→16:56)
[2018-12-27] MEDS: Docusate 100mg cap ORAL SCH ×3 (08:44→16:57)
[2018-12-27] MEDS: Aspirin EC 81mg tab ORAL SCH (08:45)
[2018-12-27] MEDS: Miralax 17gm pkt ORAL SCH (08:47)
[2018-12-27] MEDS ORDERED: Precose 50mg tab ORAL SCH (09:00)
--- NOTE | 2018-12-27 10:51 | Infectious Diseases Prog Note ---
Assessment/Plan Assessment/Plan antibiotics : none A 1. ? UTI 2. diabetes mellitus 3. hypertension 4. COPD 5. left eye blindness P 1. continue off antibiotics Subjective Constitutional: Denies: fever, chills Respiratory: Denies: shortness of breath, dry cough Gastrointestinal/Abdominal: Denies: nausea, vomiting, diarrhea Musculoskeletal: Denies: pain Allergies: Coded Allergies: PAPAYA (Verified Allergy, Intermediate, ITCH TO LIPS AND ORAL CAVITY, 10/23) Objective Vital Signs Last 24 Hour Vital Signs Date Time Temp Pulse Resp B/P (MAP) Pulse Ox O2 Delivery O2 Flow Rate FiO2 12/27/18 08:45 69 135/70 12/27/18 08:44 69 135/70 12/27/18 08:34 69 16 Room Air 21 12/27/18 08:00 98.6 71 20 135/70 (91) 98 12/27/18 06:08 132/61 12/27/18 04:00 97.4 59 18 132/61 (84) 96 12/27/18 00:00 97.5 65 19 118/61 (80) 96 12/26/18 23:12 73 20 Room Air 21 12/26/18 22:35 Room Air 12/26/18 21:22 140/74 12/26/18 21:21 68 140/74 12/26/18 20:00 97.4 68 19 140/74 (96) 95 12/26/18 16:00 98.0 65 20 122/65 (84) 95 12/26/18 13:58 118/62 12/26/18 12:00 97.8 68 20 118/62 (80) 95 Height (Feet): 5 Height (Inches): 7.00 Weight (Pounds): 209 Respiratory/Chest: lungs clear Cardiovascular: normal rate, regular rhythm, no gallop/murmur Abdomen: soft, non tender Extremities: no edema Microbiology Date/Time Source Procedure Growth Status 12/25/18 18:15 Rectum Received Laboratory Tests Test 12/27/18 05:35 White Blood Count 4.8 K/UL (4.8-10.8) Red Blood Count 4.42 M/UL (4.20-5.40) Hemoglobin 12.9 G/DL (12.0-16.0) Hematocrit 40.1 % (37.0-47.0) Mean Corpuscular Volume 91 FL (80-99) Mean Corpuscular Hemoglobin 29.2 PG (27.0-31.0) Mean Corpuscular Hemoglobin Concent 32.1 G/DL (32.0-36.0) Red Cell Distribution Width 14.3 % (11.6-14.8) Platelet Count 204 K/UL (150-450) Mean Platelet Volume 8.4 FL (6.5-10.1) Neutrophils (%) (Auto) 50.5 % (45.0-75.0) Lymphocytes (%) (Auto) 36.6 % (20.0-45.0) Monocytes (%) (Auto) 7.6 % (1.0-10.0) Eosinophils (%) (Auto) 4.0 % (0.0-3.0) H Basophils (%) (Auto) 1.4 % (0.0-2.0) Sodium Level 140 MMOL/L (136-145) Potassium Level 3.9 MMOL/L (3.5-5.1) Chloride Level 104 MMOL/L (98-107) Carbon Dioxide Level 29 MMOL/L (21-32) Anion Gap 7 mmol/L (5-15) Blood Urea Nitrogen 12 mg/dL (7-18) Creatinine 1.0 MG/DL (0.55-1.30) Estimat Glomerular Filtration Rate mL/min (>60) Glucose Level 229 MG/DL (74-106) H Calcium Level 10.0 MG/DL (8.5-10.1) Phosphorus Level 4.0 MG/DL (2.5-4.9) Magnesium Level 1.8 MG/DL (1.8-2.4) Total Bilirubin 0.4 MG/DL (0.2-1.0) Aspartate Amino Transf (AST/SGOT) 7 U/L (15-37) L Alanine Aminotransferase (ALT/SGPT) 11 U/L (12-78) L Alkaline Phosphatase 148 U/L (46-116) H C-Reactive Protein, Quantitative < 0.4 mg/dL (0.00-0.90) Pro-B-Type Natriuretic Peptide 159 pg/mL (0-125) H Total Protein 7.1 G/DL (6.4-8.2) Albumin 3.2 G/DL (3.4-5.0) L Globulin 3.9 g/dL Albumin/Globulin Ratio 0.8 (1.0-2.7) L Triglycerides Level 107 MG/DL (30-150) Cholesterol Level 129 MG/DL (< 200) LDL Cholesterol 41 mg/dL (<100) HDL Cholesterol 64 MG/DL (40-60) H Cholesterol/HDL Ratio 2.0 (3.3-4.4) L Current Medications Medications (Trade) Dose Ordered Sig/Smooth Route PRN Reason Start Time Stop Time Status Last Admin Dose Admin Albuterol Sulfate (Proventil) 2.5 mg Q4H PRN HHN Shortness of Breath 12/25/18 21:00 12/30/18 20:59 Aspirin (Ecotrin) 81 mg DAILY ORAL 12/26/18 09:00 01/25/19 08:59 12/27/18 08:45 Atorvastatin Calcium (Lipitor) 20 mg QHS ORAL 12/25/18 21:00 01/24/19 20:59 12/26/18 21:20 Brimonidine Tartrate (Alphagan) 1 drop TID BOTH EYES 12/26/18 09:00 01/25/19 08:59 12/27/18 08:44 Carvedilol (Coreg) 25 mg Q12HR ORAL 12/25/18 21:00 01/24/19 20:59 12/27/18 08:44 Clonidine HCl (Catapres Tab) 0.1 mg Q6H PRN ORAL For High Blood Pressure 160 sy 12/25/18 20:45 01/24/19 20:44 12/25/18 23:51 Dextrose (Dextrose 50%) 25 ml Q30M PRN IV Hypoglycemia 12/25/18 22:45 01/24/19 22:44 Dextrose (Dextrose 50%) 50 ml Q30M PRN IV Hypoglycemia 12/25/18 22:45 01/24/19 22:44 Docusate Sodium (Colace) 100 mg THREE TIMES A DAY ORAL 12/26/18 09:00 01/25/19 08:59 12/27/18 08:44 Folic Acid (Folate) 3 mg DAILY ORAL 12/26/18 14:45 01/25/19 14:44 12/27/18 08:45 Gabapentin (Neurontin) 100 mg THREE TIMES A DAY ORAL 12/26/18 09:00 01/25/19 08:59 12/27/18 08:45 Hydralazine HCl (Apresoline) 25 mg Q8HR ORAL 12/26/18 22:00 01/24/19 21:59 12/27/18 06:08 Insulin Aspart (NovoLOG) BEFORE MEALS AND HS SUBQ 12/25/18 22:30 01/24/19 22:29 12/27/18 06:10 Meloxicam (Mobic) 7.5 mg DAILY ORAL 12/26/18 09:00 01/25/19 08:59 12/27/18 08:45 Metformin HCl (Glucophage) 500 mg TIAC ORAL 12/26/18 16:30 01/25/19 16:29 12/27/18 06:08 Mineral Oil (Mineral Oil) 30 ml DAILY PRN ORAL Constipation 12/25/18 21:00 01/24/19 20:59 Nateglinide (Starlix) 120 mg TIAC ORAL 12/26/18 16:30 01/25/19 16:29 12/27/18 06:08 Nifedipine (Procardia XL) 30 mg DAILY ORAL 12/27/18 09:00 01/25/19 08:59 12/27/18 08:45 Pantoprazole (Protonix) 40 mg BID ORAL 12/26/18 18:00 01/25/19 14:44 12/27/18 08:45 Polyethylene Glycol (Miralax) 17 gm DAILY ORAL 12/26/18 09:00 01/25/19 08:59 12/27/18 08:47 Potassium Chloride (K-Dur) 40 meq BID ORAL 12/26/18 18:00 01/25/19 08:59 12/27/18 08:46 Risperidone (RisperDAL) 2 mg BEDTIME ORAL 12/25/18 21:00 01/24/19 20:59 12/26/18 21:20 Sennosides (Senokot) 17.2 mg BEDTIME ORAL 12/25/18 21:00 01/24/19 20:59 12/26/18 21:21 Robert Vazquez MD December 27, 2018 10:51
--- NOTE | 2018-12-27 11:15 | History and Physical Report ---
DATE OF ADMISSION: 12/25/2018 HISTORY OF PRESENT ILLNESS: The patient is a poor historian, admitted for hyperglycemia cannot obtain reliable history from the patient. The patient also admitted for low magnesium and potassium as well as urinary tract infection. Denies pain. Denies shortness of breath. Denies nausea, vomiting, or diarrhea. No fevers or chills. Again, she is a poor historian. PAST MEDICAL HISTORY: Dementia, history of constipation, osteoarthritis, polyneuropathy, chronic renal failure, congestive heart failure, NIDDM, morbid obesity, hypertension, psychosis, hyperlipidemia, edema. PAST SURGICAL HISTORY: Hysterectomy. ALLERGIES: To . MEDICATIONS: Aspirin, Lipitor, clonidine, Colace, famotidine, Lasix, hydralazine, insulin, metoprolol, polyethylene glycol, risperidone, Senokot. FAMILY HISTORY: Does have a history of diabetes. SOCIAL HISTORY: Denies history of smoking, alcohol, or illicit drugs. Currently, lives in a assisted. REVIEW OF SYSTEMS: HEENT: Denies headaches. RESPIRATORY: Denies shortness of breath. Denies cough. CARDIOVASCULAR: Denies chest pain. GASTROINTESTINAL: Denies nausea, vomiting, or diarrhea. Does complain of constipation at times. EXTREMITIES: Denies any pain. CENTRAL NERVOUS SYSTEM: No change in vision or speech pattern. Poor historian. PHYSICAL EXAMINATION: VITAL SIGNS: Temperature is 97.8, pulse is 68, blood pressure is 118/62. HEENT: PERRLA. NECK: Supple. No lymphadenopathy. CHEST: Clear to auscultation. CARDIOVASCULAR: Regular rate and rhythm. No murmurs or extra sounds. GASTROINTESTINAL: Soft, nontender, and nondistended. No organomegaly. EXTREMITIES: Does have 1+ pitting edema. Generalized weakness. Reflexes equal in both sides. LABORATORY DATA: WBC of 4.6, hemoglobin 11.7, and platelets of 182. Sodium 138, potassium . ASSESSMENT AND PLAN: urinary tract infection and labile blood sugar. I have asked Dr. Bentley Rai, Dr. Mancilla, Dr. Jose Martinez to see the patient for those reasons. Antibiotics per Dr. Jose Martinez. Nathalia Martinez M.D. DR: Yao JOB#: [id number] CC:
[2018-12-27 12:00] VITALS: BP 132/68
--- NOTE | 2018-12-27 14:16 | Nephrology Progress Note ---
Assessment/Plan Problem List: (1) UTI (urinary tract infection) (2) Uncontrolled diabetes mellitus with hyperglycemia (3) Hypokalemia (4) HTN (hypertension) Assessment UTI DM OOC Anemia HTN Low K Low Mg Plan antibiotics hold diuretics 2D echo noted BS and BP check Anemia hearn Subjective ROS Limited/Unobtainable: No Constitutional: Reports: malaise Objective Objective Last 24 Hour Vital Signs Date Time Temp Pulse Resp B/P (MAP) Pulse Ox O2 Delivery O2 Flow Rate FiO2 12/27/18 12:00 98.4 75 20 132/68 (89) 98 12/27/18 09:00 Room Air 12/27/18 08:45 69 135/70 12/27/18 08:44 69 135/70 12/27/18 08:34 69 16 Room Air 21 12/27/18 08:00 98.6 71 20 135/70 (91) 98 12/27/18 06:08 132/61 12/27/18 04:00 97.4 59 18 132/61 (84) 96 12/27/18 00:00 97.5 65 19 118/61 (80) 96 12/26/18 23:12 73 20 Room Air 21 12/26/18 22:35 Room Air 12/26/18 21:22 140/74 12/26/18 21:21 68 140/74 12/26/18 20:00 97.4 68 19 140/74 (96) 95 12/26/18 16:00 98.0 65 20 122/65 (84) 95 Intake and Output 12/26/18 12/27/18 18:59 06:59 Intake Total 1190 ml Output Total 1000 ml 1550 ml Balance 190 ml -1550 ml Intake Oral 840 ml IV Total 350 ml Output Urine Total 1000 ml 1550 ml # Bowel Movements 2 Laboratory Tests 12/27/18 05:35: White Blood Count 4.8, Red Blood Count 4.42, Hemoglobin 12.9, Hematocrit 40.1, Mean Corpuscular Volume 91, Mean Corpuscular Hemoglobin 29.2, Mean Corpuscular Hemoglobin Concent 32.1, Red Cell Distribution Width 14.3, Platelet Count 204, Mean Platelet Volume 8.4, Neutrophils (%) (Auto) 50.5, Lymphocytes (%) (Auto) 36.6, Monocytes (%) (Auto) 7.6, Eosinophils (%) (Auto) 4.0H, Basophils (%) (Auto ) 1.4, Sodium Level 140, Potassium Level 3.9, Chloride Level 104, Carbon Dioxide Level 29, Anion Gap 7, Blood Urea Nitrogen 12, Creatinine 1.0, Estimat Glomerular Filtration Rate , Glucose Level 229H, Calcium Level 10.0, Phosphorus Level 4.0, Magnesium Level 1.8, Total Bilirubin 0.4, Aspartate Amino Transf (AST /SGOT) 7L, Alanine Aminotransferase (ALT/SGPT) 11L, Alkaline Phosphatase 148H, C -Reactive Protein, Quantitative < 0.4, Pro-B-Type Natriuretic Peptide 159H, Total Protein 7.1, Albumin 3.2L, Globulin 3.9, Albumin/Globulin Ratio 0.8L, Triglycerides Level 107, Cholesterol Level 129, LDL Cholesterol 41, HDL Cholesterol 64H, Cholesterol/HDL Ratio 2.0L Height (Feet): 5 Height (Inches): 7.00 Weight (Pounds): 209 General Appearance: no apparent distress Respiratory/Chest: decreased breath sounds Abdomen: soft, other - obese Objective no change Tj Mancilla MD December 27, 2018 14:16
[2018-12-27 15:45] VITALS: BP 128/61
--- NOTE | 2018-12-27 19:40 | NUR ---
NURSE NOTES: Received patient awake in bed, talkative, alert to self and birthday. No c/o pain, no s/s of acute distress. at bedside at this time. Will continue to monitor.
[2018-12-27 20:00] VITALS: BP 147/66
[2018-12-27] MEDS: Atorvastatin 20mg tab ORAL SCH (20:48)
[2018-12-27] MEDS: Sennosides 8.6mg tab ORAL SCH (20:48)
--- NOTE | 2018-12-27 21:24 | General Progress Note ---
Assessment/Plan Problem List: (1) Diabetes mellitus ICD Codes: E11.9 - Type 2 diabetes mellitus without complications SNOMED: 47724008 (2) Morbid obesity ICD Codes: E66.01 - Morbid (severe) obesity due to excess calories SNOMED: 961970867 (3) Osteoarthritis ICD Codes: M19.90 - Unspecified osteoarthritis, unspecified site SNOMED: 820065619 (4) CKD (chronic kidney disease) ICD Codes: N18.9 - Chronic kidney disease, unspecified SNOMED: 267791078 (5) UTI (urinary tract infection) ICD Codes: N39.0 - Urinary tract infection, site not specified SNOMED: 91615023 (6) Uncontrolled diabetes mellitus with hyperglycemia ICD Codes: E11.65 - Type 2 diabetes mellitus with hyperglycemia SNOMED: 96032573, 21050113, 598765923, 461169113 Qualifiers: Qualified Codes: E13.65 - Other specified diabetes mellitus with hyperglycemia (7) HTN (hypertension) ICD Codes: I10 - Essential (primary) hypertension SNOMED: 88026836 Status: progressing Assessment/Plan: blood sugar is improving cri htn obesity h/o constipation reviewed chart and labs Subjective ROS Limited/Unobtainable: Yes Allergies: Coded Allergies: PAPAYA (Verified Allergy, Intermediate, ITCH TO LIPS AND ORAL CAVITY, 10/23) Objective Last 24 Hour Vital Signs Date Time Temp Pulse Resp B/P (MAP) Pulse Ox O2 Delivery O2 Flow Rate FiO2 12/27/18 20:48 61 147/66 12/27/18 15:45 98.8 63 20 128/61 (83) 96 12/27/18 14:45 132/68 12/27/18 12:00 98.4 75 20 132/68 (89) 98 12/27/18 09:00 Room Air 12/27/18 08:45 69 135/70 12/27/18 08:44 69 135/70 12/27/18 08:34 69 16 Room Air 21 12/27/18 08:00 98.6 71 20 135/70 (91) 98 12/27/18 06:08 132/61 12/27/18 04:00 97.4 59 18 132/61 (84) 96 12/27/18 00:00 97.5 65 19 118/61 (80) 96 12/26/18 23:12 73 20 Room Air 21 12/26/18 22:35 Room Air Intake and Output 12/26/18 12/27/18 19:00 07:00 Intake Total 1140 ml Output Total 1000 ml 1550 ml Balance 140 ml -1550 ml Intake Oral 840 ml IV Total 300 ml Output Urine Total 1000 ml 1550 ml # Bowel Movements 2 Laboratory Tests 12/27/18 05:35: White Blood Count 4.8, Red Blood Count 4.42, Hemoglobin 12.9, Hematocrit 40.1, Mean Corpuscular Volume 91, Mean Corpuscular Hemoglobin 29.2, Mean Corpuscular Hemoglobin Concent 32.1, Red Cell Distribution Width 14.3, Platelet Count 204, Mean Platelet Volume 8.4, Neutrophils (%) (Auto) 50.5, Lymphocytes (%) (Auto) 36.6, Monocytes (%) (Auto) 7.6, Eosinophils (%) (Auto) 4.0H, Basophils (%) (Auto ) 1.4, Sodium Level 140, Potassium Level 3.9, Chloride Level 104, Carbon Dioxide Level 29, Anion Gap 7, Blood Urea Nitrogen 12, Creatinine 1.0, Estimat Glomerular Filtration Rate , Glucose Level 229H, Calcium Level 10.0, Phosphorus Level 4.0, Magnesium Level 1.8, Total Bilirubin 0.4, Aspartate Amino Transf (AST /SGOT) 7L, Alanine Aminotransferase (ALT/SGPT) 11L, Alkaline Phosphatase 148H, C -Reactive Protein, Quantitative < 0.4, Pro-B-Type Natriuretic Peptide 159H, Total Protein 7.1, Albumin 3.2L, Globulin 3.9, Albumin/Globulin Ratio 0.8L, Triglycerides Level 107, Cholesterol Level 129, LDL Cholesterol 41, HDL Cholesterol 64H, Cholesterol/HDL Ratio 2.0L Height (Feet): 5 Height (Inches): 7.00 Weight (Pounds): 209 Cardiovascular: normal rate Respiratory/Chest: lungs clear Abdomen: soft Nathalia Martinez MD December 27, 2018 21:24
[2018-12-28] VITALS: BP 140/60
[2018-12-28 04:00] VITALS: BP 162/63
[2018-12-28] MEDS: metFORMIN 500mg tab ORAL SCH ×3 (06:32→16:43)
[2018-12-28] MEDS: HydrALAZINE 25mg tab ORAL SCH (06:32)
[2018-12-28] MEDS: NovoLOG Insulin Flexpen SUBQ SCH ×4 (06:34→20:55)
--- NOTE | 2018-12-28 07:19 | NUR ---
HAND-OFF: Report given to ERNESTO Walker.
--- NOTE | 2018-12-28 07:25 | NUR ---
NURSE NOTES: Notified MD Martinez about possible stage II to R buttock. Initiated wound care protocol eval per protocol
[2018-12-28 08:00] VITALS: BP 147/67
[2018-12-28] MEDS: Miralax 17gm pkt ORAL SCH (09:00)
[2018-12-28] MEDS: Aspirin EC 81mg tab ORAL SCH (09:04)
[2018-12-28] MEDS: Carvedilol 25mg Tab ORAL SCH ×2 (09:05→20:47)
[2018-12-28] MEDS: Docusate 100mg cap ORAL SCH ×3 (09:05→17:57)
[2018-12-28] MEDS: Brimonidine 0.2% Opth Sol BOTH EYES SCH ×3 (09:12→17:57)
[2018-12-28 12:00] VITALS: BP 139/72
--- NOTE | 2018-12-28 12:39 | Nephrology Progress Note ---
Assessment/Plan Problem List: (1) UTI (urinary tract infection) (2) Uncontrolled diabetes mellitus with hyperglycemia (3) Hypokalemia (4) HTN (hypertension) Assessment UTI DM OOC Anemia HTN Low K Low Mg Plan antibiotics hold diuretics 2D echo noted BS check adjust BP meds Anemia hearn Subjective ROS Limited/Unobtainable: No Constitutional: Reports: malaise Objective Objective Last 24 Hour Vital Signs Date Time Temp Pulse Resp B/P (MAP) Pulse Ox O2 Delivery O2 Flow Rate FiO2 12/28/18 09:05 60 147/67 12/28/18 09:05 60 147/67 12/28/18 09:00 Room Air 12/28/18 08:03 60 16 Room Air 21 12/28/18 08:00 98.1 59 18 147/67 (93) 99 12/28/18 06:32 162/63 12/28/18 04:00 97.8 64 19 162/63 (96) 97 12/28/18 00:00 98.4 56 18 140/60 (86) 95 12/27/18 22:00 147/66 12/27/18 21:00 Room Air 12/27/18 20:48 61 147/66 12/27/18 20:43 57 16 Room Air 21 12/27/18 20:00 98.5 61 19 147/66 (93) 96 12/27/18 15:45 98.8 63 20 128/61 (83) 96 12/27/18 14:45 132/68 Intake and Output 12/27/18 12/28/18 19:00 07:00 Intake Total 840 ml Output Total 500 ml Balance 840 ml -500 ml Intake Oral 840 ml Output Urine Total 500 ml # Voids 2 # Bowel Movements 1 1 Height (Feet): 5 Height (Inches): 7.00 Weight (Pounds): 209 General Appearance: no apparent distress Objective no change Tj Mancilla MD December 28, 2018 12:39
--- NOTE | 2018-12-28 12:41 | Infectious Diseases Prog Note ---
Assessment/Plan Assessment/Plan A 1. Pyuria/? UTI 2. diabetes mellitus 3. hypertension 4. COPD 5. left eye blindness P 1. continue off antibiotics Subjective ROS Limited/Unobtainable: No Constitutional: Reports: no symptoms Respiratory: Reports: no symptoms Gastrointestinal/Abdominal: Reports: no symptoms Genitourinary: Reports: no symptoms Allergies: Coded Allergies: PAPAYA (Verified Allergy, Intermediate, ITCH TO LIPS AND ORAL CAVITY, 10/23) Objective Vital Signs Last 24 Hour Vital Signs Date Time Temp Pulse Resp B/P (MAP) Pulse Ox O2 Delivery O2 Flow Rate FiO2 12/28/18 09:05 60 147/67 12/28/18 09:05 60 147/67 12/28/18 09:00 Room Air 12/28/18 08:03 60 16 Room Air 21 12/28/18 08:00 98.1 59 18 147/67 (93) 99 12/28/18 06:32 162/63 12/28/18 04:00 97.8 64 19 162/63 (96) 97 12/28/18 00:00 98.4 56 18 140/60 (86) 95 12/27/18 22:00 147/66 12/27/18 21:00 Room Air 12/27/18 20:48 61 147/66 12/27/18 20:43 57 16 Room Air 21 12/27/18 20:00 98.5 61 19 147/66 (93) 96 12/27/18 15:45 98.8 63 20 128/61 (83) 96 12/27/18 14:45 132/68 Height (Feet): 5 Height (Inches): 7.00 Weight (Pounds): 209 General Appearance: no acute distress HEENT: mucous membranes moist Respiratory/Chest: lungs clear Cardiovascular: normal rate Abdomen: soft, non tender Extremities: no edema Neurologic/Psychiatric: alert, responsive Microbiology Date/Time Source Procedure Growth Status 12/25/18 18:15 Nasal Nares 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 Complete Current Medications Medications (Trade) Dose Ordered Sig/Smooth Route PRN Reason Start Time Stop Time Status Last Admin Dose Admin Albuterol Sulfate (Proventil) 2.5 mg Q4H PRN HHN Shortness of Breath 12/25/18 21:00 12/30/18 20:59 Aspirin (Ecotrin) 81 mg DAILY ORAL 12/26/18 09:00 01/25/19 08:59 12/28/18 09:04 Atorvastatin Calcium (Lipitor) 20 mg QHS ORAL 12/25/18 21:00 01/24/19 20:59 12/27/18 20:48 Brimonidine Tartrate (Alphagan) 1 drop TID BOTH EYES 12/26/18 09:00 01/25/19 08:59 12/28/18 09:12 Carvedilol (Coreg) 25 mg Q12HR ORAL 12/25/18 21:00 01/24/19 20:59 12/28/18 09:05 Clonidine HCl (Catapres Tab) 0.1 mg Q6H PRN ORAL For High Blood Pressure 160 sy 12/25/18 20:45 01/24/19 20:44 12/25/18 23:51 Dextrose (Dextrose 50%) 25 ml Q30M PRN IV Hypoglycemia 12/25/18 22:45 01/24/19 22:44 Dextrose (Dextrose 50%) 50 ml Q30M PRN IV Hypoglycemia 12/25/18 22:45 01/24/19 22:44 Docusate Sodium (Colace) 100 mg THREE TIMES A DAY ORAL 12/26/18 09:00 01/25/19 08:59 12/28/18 09:05 Folic Acid (Folate) 3 mg DAILY ORAL 12/26/18 14:45 01/25/19 14:44 12/28/18 09:05 Gabapentin (Neurontin) 100 mg THREE TIMES A DAY ORAL 12/26/18 09:00 01/25/19 08:59 12/28/18 09:05 Hydralazine HCl (Apresoline) 50 mg Q8HR ORAL 12/28/18 14:00 01/24/19 21:59 UNV Insulin Aspart (NovoLOG) BEFORE MEALS AND HS SUBQ 12/25/18 22:30 01/24/19 22:29 12/28/18 11:37 Meloxicam (Mobic) 7.5 mg DAILY ORAL 12/26/18 09:00 01/25/19 08:59 12/28/18 09:04 Metformin HCl (Glucophage) 500 mg TIAC ORAL 12/26/18 16:30 01/25/19 16:29 12/28/18 11:37 Mineral Oil (Mineral Oil) 30 ml DAILY PRN ORAL Constipation 12/25/18 21:00 01/24/19 20:59 Nateglinide (Starlix) 120 mg TIAC ORAL 12/26/18 16:30 01/25/19 16:29 12/28/18 11:37 Nifedipine (Procardia XL) 30 mg DAILY ORAL 12/27/18 09:00 01/25/19 08:59 12/28/18 09:05 Pantoprazole (Protonix) 40 mg BID ORAL 12/26/18 18:00 01/25/19 14:44 12/28/18 09:05 Polyethylene Glycol (Miralax) 17 gm DAILY ORAL 12/26/18 09:00 01/25/19 08:59 12/27/18 08:47 Potassium Chloride (K-Dur) 40 meq BID ORAL 12/26/18 18:00 01/25/19 08:59 12/28/18 09:04 Risperidone (RisperDAL) 2 mg BEDTIME ORAL 12/25/18 21:00 01/24/19 20:59 12/27/18 20:48 Sennosides (Senokot) 17.2 mg BEDTIME ORAL 12/25/18 21:00 01/24/19 20:59 12/27/18 20:48 Jose Martinez MD December 28, 2018 12:41
[2018-12-28] MEDS: HydrALAZINE 50mg tab ORAL SCH ×2 (13:24→22:12)
[2018-12-28 16:00] VITALS: BP 129/64
--- NOTE | 2018-12-28 17:17 | Consultation ---
History of Present Illness General Date patient seen: December 28, 2018 Reason for Hospitalization: Abnormal Labs Present Illness HPI This is a very pleasant 78-year-old female with multiple medical comorbidities who is a long term resident that presented with abnormal labs elevated blood glucose and UTI. During admission was identified the patient had some skin breakdown around the buttock and sacral region. Surgery called to evaluate and assist with care. Patient seen, chart reviewed, patient examined. In discussing her care with patient she states that she has not been walking for some time now and is care dependent long term patient. She states that she does not turn herself very often. She states that she only sometimes knows when she is incontinent and is unsure at others. Incontinent of both stool and urine. Allergies: Coded Allergies: PAPAYA (Verified Allergy, Intermediate, ITCH TO LIPS AND ORAL CAVITY, 10/23) Medication History Scheduled Acarbose (Acarbose), 50 MG PO TID, (Reported) Aspirin* (Aspir-Low*), 81 MG PO DAILY, (Reported) Atorvastatin Calcium* (Lipitor*), 20 MG PO QHS, (Reported) Brimonidine Tartrate* (Alphagan*), 1 DROP BOTH EYES TID, (Reported) Carvedilol* (Carvedilol*), 25 MG PO Q12HR, (Reported) Clonidine (Clonidine), 1 EACH TD ONCE A WEEK, (Reported) Docusate Sodium* (Docusate Sodium*), 100 MG ORAL THREE TIMES A DAY, (Reported) Famotidine (Famotidine), 20 MG ORAL TWICE A DAY, (Reported) Furosemide* (Lasix*), 40 MG PO DAILY, (Reported) Gabapentin* (Gabapentin*), 100 MG ORAL THREE TIMES A DAY, (Reported) Hydralazine Hcl* (Hydralazine Hcl*), 50 MG PO BID, (Reported) Insulin Aspart* (Novolog*), 0 SUBQ AC+HS, (Reported) Meloxicam* (Meloxicam*), 7.5 MG PO DAILY, (Reported) Metolazone (Metolazone), 2.5 MG PO DAILY, (Reported) Metoprolol Succinate* (Metoprolol Succinate*), 25 MG ORAL DAILY, (Reported) Nifedipine Xl* (Procardia Xl*), 60 MG ORAL DAILY, (Reported) Olmesartan Med/Amlodipine/Hctz 40-5-12.5 (Tribenzor 40-5-12.5 Mg Tablet), 1 EACH PO DAILY, (Reported) Polyethylene Glycol 3350* (Miralax*), 17 GM ORAL DAILY, (Reported) Risperidone* (Risperdal*), 2 MG ORAL BEDTIME, (Reported) Sennosides (Senna), 17.2 MG PO BEDTIME, (Reported) Sitagliptin Phos/Metformin Hcl (Janumet 50-1,000 Mg Tablet), 1 EACH PO DAILY, ( Reported) Tramadol Hcl/Acetaminophen (Tramadol-Acetaminophn 37.5-325), 1 EACH PO PRN, ( Reported) Scheduled PRN Albuterol Sulfate* (Albuterol Sulfate Hhn*), 3 ML INH Q4H PRN for Shortness of Breath, (Reported) Clonidine Hcl (Clonidine Hcl), 0.1 MG PO Q6HR PRN for For High Blood Pressure, ( Reported) Mineral Oil (Mineral Oil), 30 ML PO DAILY PRN for Constipation, (Reported) Miscellaneous Medications Insulin Lispro (Humalog Kwikpen), Unknown Dose SQ, (Reported) Patient History History Provided By: Patient, Medical Record, PMD Healthcare decision maker Resuscitation status Full Code Advanced Directive on File Yes Past Medical/Surgical History Past Medical/Surgical History: (1) Constipation (2) Fecal impaction in rectum (3) Dehydration (4) Fecal impaction (5) RLQ abdominal pain (6) Polyneuropathy (7) CHF (congestive heart failure) (8) Hypokalemia (9) UTI (urinary tract infection) (10) Uncontrolled diabetes mellitus with hyperglycemia (11) HTN (hypertension) (12) Diabetes mellitus (13) Morbid obesity (14) Osteoarthritis (15) CKD (chronic kidney disease) Review of Systems Review of Symptoms General ROS: no weight loss or fever Psychological ROS: no depression or mood changes, no memory loss Ophthalmic ROS: no visual changes or eye irritation ENT ROS: no nasal congestion, hearing loss, dizziness Allergy and Immunology ROS: no allergic symptoms or urticaria Hematological and Lymphatic ROS: no swollen glands, unusual bleeding or bruising Endocrine ROS: no polyuria, polydipsia, weight changes, temperature intolerance Respiratory ROS: no cough, shortness of breath, or wheezing Cardiovascular ROS: no chest pain or dyspnea on exertion Gastrointestinal ROS: denies abdominal pain, no bright red blood in stool. Musculoskeletal ROS: no myalgias or arthralgias Neurological ROS: no TIA or stroke symptoms Dermatological ROS: no new or changing skin lesions, rashes or pruritis Physical Exam Physical Exam General appearance: alert, cooperative, no distress, appears stated age Head: Normocephalic, without obvious abnormality, atraumatic Eyes: conjunctivae/corneas clear. PERRL, EOM's intact. Fundi benign Throat: Lips, mucosa, and tongue normal. Teeth and gums normal Neck: supple, symmetrical, trachea midline, no adenopathy, thyroid: not enlarged, symmetric, no tenderness/mass/nodules, no carotid bruit and no JVD Lungs: clear to auscultation bilaterally Heart: regular rate and rhythm, S1, S2 normal, no murmur, click, rub or gallop Abdomen: soft, non-tender. Bowel sounds normal. No masses, no organomegaly Extremities: extremities normal, atraumatic, no cyanosis or edema Pulses: 2+ and symmetric Skin: Skin color, texture, turgor normal. No rashes or lesions Neurologic: Grossly normal Last 24 Hour Vital Signs Date Time Temp Pulse Resp B/P (MAP) Pulse Ox O2 Delivery O2 Flow Rate FiO2 12/28/18 16:00 98.0 86 19 129/64 (85) 97 12/28/18 13:24 147/67 12/28/18 12:00 98.8 64 18 139/72 (94) 99 12/28/18 09:05 60 147/67 12/28/18 09:05 60 147/67 12/28/18 09:00 Room Air 12/28/18 08:03 60 16 Room Air 21 12/28/18 08:00 98.1 59 18 147/67 (93) 99 12/28/18 06:32 162/63 12/28/18 04:00 97.8 64 19 162/63 (96) 97 12/28/18 00:00 98.4 56 18 140/60 (86) 95 12/27/18 22:00 147/66 12/27/18 21:00 Room Air 12/27/18 20:48 61 147/66 12/27/18 20:43 57 16 Room Air 21 12/27/18 20:00 98.5 61 19 147/66 (93) 96 Intake and Output 12/27/18 12/28/18 18:59 06:59 Intake Total 840 ml Output Total 500 ml Balance 840 ml -500 ml Intake Oral 840 ml Output Urine Total 500 ml # Voids 2 # Bowel Movements 1 1 Height (Feet): 5 Height (Inches): 7.00 Weight (Pounds): 209 Medications Current Medications Medications (Trade) Dose Ordered Sig/Smooth Route PRN Reason Start Time Stop Time Status Last Admin Dose Admin Albuterol Sulfate (Proventil) 2.5 mg Q4H PRN HHN Shortness of Breath 12/25/18 21:00 12/30/18 20:59 Aspirin (Ecotrin) 81 mg DAILY ORAL 12/26/18 09:00 01/25/19 08:59 12/28/18 09:04 Atorvastatin Calcium (Lipitor) 20 mg QHS ORAL 12/25/18 21:00 01/24/19 20:59 12/27/18 20:48 Brimonidine Tartrate (Alphagan) 1 drop TID BOTH EYES 12/26/18 09:00 01/25/19 08:59 12/28/18 13:24 Carvedilol (Coreg) 25 mg Q12HR ORAL 12/25/18 21:00 01/24/19 20:59 12/28/18 09:05 Clonidine HCl (Catapres Tab) 0.1 mg Q6H PRN ORAL For High Blood Pressure 160 sy 12/25/18 20:45 01/24/19 20:44 12/25/18 23:51 Dextrose (Dextrose 50%) 25 ml Q30M PRN IV Hypoglycemia 12/25/18 22:45 01/24/19 22:44 Dextrose (Dextrose 50%) 50 ml Q30M PRN IV Hypoglycemia 12/25/18 22:45 01/24/19 22:44 Docusate Sodium (Colace) 100 mg THREE TIMES A DAY ORAL 12/26/18 09:00 01/25/19 08:59 12/28/18 13:24 Folic Acid (Folate) 3 mg DAILY ORAL 12/26/18 14:45 01/25/19 14:44 12/28/18 09:05 Gabapentin (Neurontin) 100 mg THREE TIMES A DAY ORAL 12/26/18 09:00 6/16/19 08:59 12/28/18 13:24 Hydralazine HCl (Apresoline) 50 mg Q8HR ORAL 12/28/18 14:00 01/24/19 21:59 12/28/18 13:24 Insulin Aspart (NovoLOG) BEFORE MEALS AND HS SUBQ 12/25/18 22:30 01/24/19 22:29 12/28/18 16:50 Meloxicam (Mobic) 7.5 mg DAILY ORAL 12/26/18 09:00 01/25/19 08:59 12/28/18 09:04 Metformin HCl (Glucophage) 500 mg TIAC ORAL 12/26/18 16:30 01/25/19 16:29 12/28/18 16:43 Mineral Oil (Mineral Oil) 30 ml DAILY PRN ORAL Constipation 12/25/18 21:00 01/24/19 20:59 Nateglinide (Starlix) 120 mg TIAC ORAL 12/26/18 16:30 01/25/19 16:29 12/28/18 16:43 Nifedipine (Procardia XL) 30 mg DAILY ORAL 12/27/18 09:00 01/25/19 08:59 12/28/18 09:05 Pantoprazole (Protonix) 40 mg BID ORAL 12/26/18 18:00 01/25/19 14:44 12/28/18 09:05 Polyethylene Glycol (Miralax) 17 gm DAILY ORAL 12/26/18 09:00 01/25/19 08:59 12/27/18 08:47 Potassium Chloride (K-Dur) 40 meq BID ORAL 12/26/18 18:00 01/25/19 08:59 12/28/18 09:04 Risperidone (RisperDAL) 2 mg BEDTIME ORAL 12/25/18 21:00 01/24/19 20:59 12/27/18 20:48 Sennosides (Senokot) 17.2 mg BEDTIME ORAL 12/25/18 21:00 01/24/19 20:59 12/27/18 20:48 Assessment/Plan Problem List: (1) Incontinence associated dermatitis Assessment & Plan: This is a 78-year-old female who is nonambulatory and bedbound full care dependent but has developed incontinence associated dermatitis partial-thickness stage II area of skin breakdown in her right buttock. Area approximately 3 cm x 2 cm with viable healthy dermal tissue. No odor, no signs of infection, incontinence identified. Tx Plan: Long discussion was had with the patient regarding to the physical exam findings and the etiology of these findings. Patient states that she is incontinent unsure at times when and if stool or urine. I discussed with the patient is important for her to identified to nursing staff when she does realize she has a bladder or bowel movement. This way she can be changed and cared for prior to laying in feces or urine for prolonged period of time. Patient understands that laying in one position for prolonged period time makes her prone to decubitus ulcer formation and states that she will try to turn as much as possible. For now can continue with frequent changing as necessary with bowel and urine movements. Wash buttock area daily with normal saline apply skin protectant and foam dressing. Reinforced with patient necessity to turn every 2 hours. There is soft mattress. Thank you ICD Codes: L30.8 - Other specified dermatitis; R32 - Unspecified urinary incontinence SNOMED: 918597583 (2) Constipation Assessment & Plan: bowel regimen ordered ICD Codes: K59.00 - Constipation, unspecified SNOMED: 53888175 Anshul Robin December 28, 2018 17:17
[2018-12-28] MEDS ORDERED: Mineral Oil 30ml ud ORAL PRN (17:30)
[2018-12-28] MEDS ORDERED: Milk of Magnesia 30ml Ud ORAL PRN (17:30)
--- NOTE | 2018-12-28 18:00 | NUR ---
NURSE NOTES: DR GOODWIN AT BEDSIDE, ASSESSED RIGHT BUTTOCK WOUND. NE WORDER TO CLEANSE DAILY, APPLY SKIN BARRIER FILM, AND OPTIFOAM DRESSING.
--- NOTE | 2018-12-28 19:24 | NUR ---
HAND-OFF: Report given to Ann RODRIGUEZ RN.
--- NOTE | 2018-12-28 19:46 | NUR ---
NURSE NOTES: Received patient in bed, no distress noted, alert to her name only, on room air, bilateral weakness, call light is within reach, bed is in low position, locked and alarm is on. Will continue to monitor for safety and comfort.
[2018-12-28 20:00] VITALS: BP 145/70
[2018-12-28] MEDS: Atorvastatin 20mg tab ORAL SCH (20:47)
[2018-12-28] MEDS: Sennosides 8.6mg tab ORAL SCH (20:47)
--- NOTE | 2018-12-28 21:41 | General Progress Note ---
Assessment/Plan Problem List: (1) Diabetes mellitus ICD Codes: E11.9 - Type 2 diabetes mellitus without complications SNOMED: 36527200 (2) Morbid obesity ICD Codes: E66.01 - Morbid (severe) obesity due to excess calories SNOMED: 916323314 (3) Osteoarthritis ICD Codes: M19.90 - Unspecified osteoarthritis, unspecified site SNOMED: 690082812 (4) CKD (chronic kidney disease) ICD Codes: N18.9 - Chronic kidney disease, unspecified SNOMED: 103524956 (5) UTI (urinary tract infection) ICD Codes: N39.0 - Urinary tract infection, site not specified SNOMED: 99238298 (6) Uncontrolled diabetes mellitus with hyperglycemia ICD Codes: E11.65 - Type 2 diabetes mellitus with hyperglycemia SNOMED: 80451641, 38390610, 071381757, 118595701 Qualifiers: Qualified Codes: E13.65 - Other specified diabetes mellitus with hyperglycemia (7) HTN (hypertension) ICD Codes: I10 - Essential (primary) hypertension SNOMED: 53087077 Status: progressing Assessment/Plan: blood sugar is improving dc planning constipation improved obs reviewed chart and labs Subjective ROS Limited/Unobtainable: Yes Allergies: Coded Allergies: PAPAYA (Verified Allergy, Intermediate, ITCH TO LIPS AND ORAL CAVITY, 10/23) Objective Last 24 Hour Vital Signs Date Time Temp Pulse Resp B/P (MAP) Pulse Ox O2 Delivery O2 Flow Rate FiO2 12/28/18 20:47 57 145/70 12/28/18 20:00 97.4 57 18 145/70 (95) 98 12/28/18 16:00 98.0 86 19 129/64 (85) 97 12/28/18 13:24 147/67 12/28/18 12:00 98.8 64 18 139/72 (94) 99 12/28/18 09:05 60 147/67 12/28/18 09:05 60 147/67 12/28/18 09:00 Room Air 12/28/18 08:03 60 16 Room Air 21 12/28/18 08:00 98.1 59 18 147/67 (93) 99 12/28/18 06:32 162/63 12/28/18 04:00 97.8 64 19 162/63 (96) 97 12/28/18 00:00 98.4 56 18 140/60 (86) 95 12/27/18 22:00 147/66 Intake and Output 12/27/18 12/28/18 18:59 06:59 Intake Total 840 ml Output Total 500 ml Balance 840 ml -500 ml Intake Oral 840 ml Output Urine Total 500 ml # Voids 2 # Bowel Movements 1 1 Height (Feet): 5 Height (Inches): 7.00 Weight (Pounds): 209 Neck: supple Cardiovascular: normal rate Respiratory/Chest: lungs clear Abdomen: soft Nathalia Martinez MD December 28, 2018 21:41
[2018-12-29] VITALS: BP 157/62
[2018-12-29 04:00] VITALS: BP 139/63
[2018-12-29] MEDS: HydrALAZINE 50mg tab ORAL SCH (06:06)
[2018-12-29] MEDS: metFORMIN 500mg tab ORAL SCH (06:06)
[2018-12-29] MEDS: NovoLOG Insulin Flexpen SUBQ SCH (06:13)
--- NOTE | 2018-12-29 07:01 | NUR ---
HAND-OFF: Report given to Amy OROZCO.
[2018-12-29 07:11] LABS: BASOPHILS % (AUTO) 1.3 % (0.0-2.0); EOSINOPHILS % (AUTO) 2.7 % (0.0-3.0); HEMOGLOBIN 13.9 G/DL (12.0-16.0); MEAN CORPUSCULAR VOLUME 90 FL (80-99); MONOCYTES % (AUTO) 5.8 % (1.0-10.0); NEUTROPHILS % (AUTO) 58.3 % (45.0-75.0); PLATELET COUNT 200 K/UL (150-450); RED BLOOD COUNT 4.68 M/UL (4.20-5.40); RED CELL DISTRIBUTION WIDTH 14.1 % (11.6-14.8); WHITE BLOOD COUNT 5.1 K/UL (4.8-10.8)
[2018-12-29 07:31] LABS: ALANINE AMINOTRANSFERASE 10 U/L (12-78); ALBUMIN 3.5 G/DL (3.4-5.0); ALBUMIN/GLOBULIN RATIO 0.9 (1.0-2.7); ALKALINE PHOSPHATASE 159 U/L (46-116); ANION GAP 9 mmol/L (5-15); ASPARTATE AMINO TRANSFERASE 12 U/L (15-37); BILIRUBIN,TOTAL 0.6 MG/DL (0.2-1.0); BLOOD UREA NITROGEN 18 mg/dL (7-18); CALCIUM 10.4 MG/DL (8.5-10.1); CARBON DIOXIDE 27 MMOL/L (21-32); CHLORIDE 100 MMOL/L (98-107); CREATININE 0.9 MG/DL (0.55-1.30); PHOSPHORUS 3.7 MG/DL (2.5-4.9); POTASSIUM 4.3 MMOL/L (3.5-5.1); SODIUM 136 MMOL/L (136-145)
--- NOTE | 2018-12-29 07:39 | NUR ---
NURSE NOTES: Patient received resting in bed. Breathing unlabored on room air. No signs of SOB or pain observed. IV site on right wrist noted. Purewick suctioning well. Bed locked in lowest position. Bed alarm is on. Call light placed within reach. Will continue to monitor.
[2018-12-29 08:00] VITALS: BP 142/66
[2018-12-29] MEDS: Docusate 100mg cap ORAL SCH (08:01)
[2018-12-29 08:03] VITALS: BP 139/78
[2018-12-29] MEDS: Miralax 17gm pkt ORAL SCH (08:03)
[2018-12-29] MEDS: Aspirin EC 81mg tab ORAL SCH (08:03)
[2018-12-29] MEDS: Carvedilol 25mg Tab ORAL SCH (08:03)
[2018-12-29] MEDS: Brimonidine 0.2% Opth Sol BOTH EYES SCH (09:00)
--- NOTE | 2018-12-29 11:20 | NUR ---
NURSE NOTES: [facility] Report given to Tatianna OROZCO. Transportation by ambulance personnel. Patient's belongings reviewed and confirmed at bedside. Patient has dentures and eyeglasses on. IV safely removed, covered with gauze and tape. Family made aware. Photo of wound taken.
--- NOTE | 2018-12-29 11:22 | Nephrology Progress Note ---
Assessment/Plan Problem List: (1) UTI (urinary tract infection) (2) Uncontrolled diabetes mellitus with hyperglycemia (3) Hypokalemia (4) HTN (hypertension) Assessment UTI DM OOC Anemia HTN Low K Low Mg Plan Mag IV ordered antibiotics hold diuretics 2D echo noted BS check adjust BP meds Anemia hearn Ok to DC after IV Mag from renal stand Subjective ROS Limited/Unobtainable: No Constitutional: Reports: malaise Objective Objective Last 24 Hour Vital Signs Date Time Temp Pulse Resp B/P (MAP) Pulse Ox O2 Delivery O2 Flow Rate FiO2 12/29/18 09:00 Room Air 12/29/18 08:03 66 139/78 12/29/18 08:03 66 139/78 12/29/18 08:02 68 20 Room Air 21 12/29/18 08:00 98.8 60 18 142/66 (91) 96 12/29/18 06:06 139/78 12/29/18 04:00 98.5 66 18 139/63 (88) 12/29/18 00:00 97.9 66 18 157/62 (93) 12/28/18 22:12 160/84 12/28/18 21:47 65 18 Room Air 21 12/28/18 21:00 Room Air 12/28/18 20:47 57 145/70 12/28/18 20:00 97.4 57 18 145/70 (95) 98 12/28/18 16:00 98.0 86 19 129/64 (85) 97 12/28/18 13:24 147/67 12/28/18 12:00 98.8 64 18 139/72 (94) 99 Intake and Output 12/28/18 12/29/18 19:00 07:00 Intake Total 500 ml Balance 500 ml Other 500 ml # Bowel Movements 1 Current Medications Medications (Trade) Dose Ordered Sig/Smooth Route PRN Reason Start Time Stop Time Status Last Admin Dose Admin Albuterol Sulfate (Proventil) 2.5 mg Q4H PRN HHN Shortness of Breath 12/25/18 21:00 12/30/18 20:59 Aspirin (Ecotrin) 81 mg DAILY ORAL 12/26/18 09:00 01/25/19 08:59 12/29/18 08:03 Atorvastatin Calcium (Lipitor) 20 mg QHS ORAL 12/25/18 21:00 01/24/19 20:59 12/28/18 20:47 Brimonidine Tartrate (Alphagan) 1 drop TID BOTH EYES 12/26/18 09:00 01/25/19 08:59 12/28/18 17:57 Carvedilol (Coreg) 25 mg Q12HR ORAL 12/25/18 21:00 01/24/19 20:59 12/29/18 08:03 Clonidine HCl (Catapres Tab) 0.1 mg Q6H PRN ORAL For High Blood Pressure 160 sy 12/25/18 20:45 01/24/19 20:44 12/25/18 23:51 Dextrose (Dextrose 50%) 25 ml Q30M PRN IV Hypoglycemia 12/25/18 22:45 01/24/19 22:44 Dextrose (Dextrose 50%) 50 ml Q30M PRN IV Hypoglycemia 12/25/18 22:45 01/24/19 22:44 Docusate Sodium (Colace) 100 mg THREE TIMES A DAY ORAL 12/26/18 09:00 01/25/19 08:59 12/29/18 08:01 Folic Acid (Folate) 3 mg DAILY ORAL 12/26/18 14:45 01/25/19 14:44 12/29/18 08:02 Gabapentin (Neurontin) 100 mg THREE TIMES A DAY ORAL 12/26/18 09:00 01/25/19 08:59 12/29/18 08:01 Hydralazine HCl (Apresoline) 50 mg Q8HR ORAL 12/28/18 14:00 01/24/19 21:59 12/29/18 06:06 Insulin Aspart (NovoLOG) BEFORE MEALS AND HS SUBQ 12/25/18 22:30 01/24/19 22:29 12/29/18 06:13 Magnesium Hydroxide (Mom) 30 ml DAILYPRN PRN ORAL Constipation 12/28/18 17:30 01/27/19 17:29 Magnesium Sulfate 100 ml @ 100 mls/hr Q1H IVPB 12/29/18 11:00 12/29/18 14:59 Meloxicam (Mobic) 7.5 mg DAILY ORAL 12/26/18 09:00 01/25/19 08:59 12/29/18 08:01 Metformin HCl (Glucophage) 500 mg TIAC ORAL 12/26/18 16:30 01/25/19 16:29 12/29/18 06:06 Mineral Oil (Mineral Oil) 30 ml DAILYPRN PRN ORAL Constipation 12/28/18 17:30 01/24/19 20:59 Nateglinide (Starlix) 120 mg TIAC ORAL 12/26/18 16:30 01/25/19 16:29 12/29/18 06:06 Nifedipine (Procardia XL) 30 mg DAILY ORAL 12/27/18 09:00 01/25/19 08:59 12/29/18 08:03 Pantoprazole (Protonix) 40 mg BID ORAL 12/26/18 18:00 01/25/19 14:44 12/29/18 08:03 Polyethylene Glycol (Miralax) 17 gm DAILY ORAL 12/26/18 09:00 01/25/19 08:59 12/29/18 08:03 Potassium Chloride (K-Dur) 40 meq BID ORAL 12/26/18 18:00 01/25/19 08:59 12/29/18 08:02 Risperidone (RisperDAL) 2 mg BEDTIME ORAL 12/25/18 21:00 01/24/19 20:59 12/28/18 20:47 Sennosides (Senokot) 17.2 mg BEDTIME ORAL 12/25/18 21:00 01/24/19 20:59 12/28/18 20:47 Laboratory Tests 12/29/18 05:45: White Blood Count 5.1, Red Blood Count 4.68, Hemoglobin 13.9, Hematocrit 42.0, Mean Corpuscular Volume 90, Mean Corpuscular Hemoglobin 29.7, Mean Corpuscular Hemoglobin Concent 33.2, Red Cell Distribution Width 14.1, Platelet Count 200, Mean Platelet Volume 8.8, Neutrophils (%) (Auto) 58.3, Lymphocytes (%) (Auto) 32.0, Monocytes (%) (Auto) 5.8, Eosinophils (%) (Auto) 2.7, Basophils (%) (Auto ) 1.3, Sodium Level 136, Potassium Level 4.3, Chloride Level 100, Carbon Dioxide Level 27, Anion Gap 9, Blood Urea Nitrogen 18, Creatinine 0.9, Estimat Glomerular Filtration Rate , Glucose Level 204H, Calcium Level 10.4H, Phosphorus Level 3.7, Magnesium Level 1.3L, Total Bilirubin 0.6, Aspartate Amino Transf (AST/SGOT) 12L, Alanine Aminotransferase (ALT/SGPT) 10L, Alkaline Phosphatase 159H, Total Protein 7.5, Albumin 3.5, Globulin 4.0, Albumin/ Globulin Ratio 0.9L Height (Feet): 5 Height (Inches): 7.00 Weight (Pounds): 209 General Appearance: no apparent distress Objective no change Tj Mancilla MD December 29, 2018 11:22
--- NOTE | 2018-12-29 12:37 | Surgery Progress Note ---
Surgery Progress Note Subjective Additional Comments no acute events. comfortable. stable. labs improved. exam improved. states she is better today. Objective Last 24 Hour Vital Signs Date Time Temp Pulse Resp B/P (MAP) Pulse Ox O2 Delivery O2 Flow Rate FiO2 12/29/18 09:00 Room Air 12/29/18 08:03 66 139/78 12/29/18 08:03 66 139/78 12/29/18 08:02 68 20 Room Air 21 12/29/18 08:00 98.8 60 18 142/66 (91) 96 12/29/18 06:06 139/78 12/29/18 04:00 98.5 66 18 139/63 (88) 12/29/18 00:00 97.9 66 18 157/62 (93) 12/28/18 22:12 160/84 12/28/18 21:47 65 18 Room Air 21 12/28/18 21:00 Room Air 12/28/18 20:47 57 145/70 12/28/18 20:00 97.4 57 18 145/70 (95) 98 12/28/18 16:00 98.0 86 19 129/64 (85) 97 12/28/18 13:24 147/67 I&O Intake and Output 12/28/18 12/29/18 19:00 07:00 Intake Total 500 ml Balance 500 ml Other 500 ml # Bowel Movements 1 Dressing: dry Wound: clean Cardiovascular: RSR Respiratory: clear Abdomen: soft, non-tender, present bowel sounds Extremities: no edema, no tenderness, no cyanosis Laboratory Tests Test 12/29/18 05:45 White Blood Count 5.1 K/UL (4.8-10.8) Red Blood Count 4.68 M/UL (4.20-5.40) Hemoglobin 13.9 G/DL (12.0-16.0) Hematocrit 42.0 % (37.0-47.0) Mean Corpuscular Volume 90 FL (80-99) Mean Corpuscular Hemoglobin 29.7 PG (27.0-31.0) Mean Corpuscular Hemoglobin Concent 33.2 G/DL (32.0-36.0) Red Cell Distribution Width 14.1 % (11.6-14.8) Platelet Count 200 K/UL (150-450) Mean Platelet Volume 8.8 FL (6.5-10.1) Neutrophils (%) (Auto) 58.3 % (45.0-75.0) Lymphocytes (%) (Auto) 32.0 % (20.0-45.0) Monocytes (%) (Auto) 5.8 % (1.0-10.0) Eosinophils (%) (Auto) 2.7 % (0.0-3.0) Basophils (%) (Auto) 1.3 % (0.0-2.0) Sodium Level 136 MMOL/L (136-145) Potassium Level 4.3 MMOL/L (3.5-5.1) Chloride Level 100 MMOL/L (98-107) Carbon Dioxide Level 27 MMOL/L (21-32) Anion Gap 9 mmol/L (5-15) Blood Urea Nitrogen 18 mg/dL (7-18) Creatinine 0.9 MG/DL (0.55-1.30) Estimat Glomerular Filtration Rate mL/min (>60) Glucose Level 204 MG/DL (74-106) H Calcium Level 10.4 MG/DL (8.5-10.1) H Phosphorus Level 3.7 MG/DL (2.5-4.9) Magnesium Level 1.3 MG/DL (1.8-2.4) L Total Bilirubin 0.6 MG/DL (0.2-1.0) Aspartate Amino Transf (AST/SGOT) 12 U/L (15-37) L Alanine Aminotransferase (ALT/SGPT) 10 U/L (12-78) L Alkaline Phosphatase 159 U/L (46-116) H Total Protein 7.5 G/DL (6.4-8.2) Albumin 3.5 G/DL (3.4-5.0) Globulin 4.0 g/dL Albumin/Globulin Ratio 0.9 (1.0-2.7) L Plan Problems: (1) Incontinence associated dermatitis Assessment & Plan: This is a 78-year-old female who is nonambulatory and bedbound full care dependent but has developed incontinence associated dermatitis partial-thickness stage II area of skin breakdown in her right buttock. Area approximately 3 cm x 2 cm with viable healthy dermal tissue. No odor, no signs of infection, incontinence identified. Tx Plan: Long discussion was had with the patient regarding to the physical exam findings and the etiology of these findings. Patient states that she is incontinent unsure at times when and if stool or urine. I discussed with the patient is important for her to identified to nursing staff when she does realize she has a bladder or bowel movement. This way she can be changed and cared for prior to laying in feces or urine for prolonged period of time. Patient understands that laying in one position for prolonged period time makes her prone to decubitus ulcer formation and states that she will try to turn as much as possible. For now can continue with frequent changing as necessary with bowel and urine movements. Wash buttock area daily with normal saline apply skin protectant and foam dressing. Reinforced with patient necessity to turn every 2 hours. There is soft mattress. Thank you d/c okay. will need outside facility to keep close eye on wounds to ensure healing. can cont with above recs upon dc (2) Constipation Assessment & Plan: bowel regimen ordered Anshul Robin December 29, 2018 12:37
--- NOTE | 2018-12-29 19:46 | Cardiology Report ---
APPROVED REPORT EKG Measurement Heart [id number] Sinus bradycardia T wave abnormality, consider anterior ischemia Prolonged QT Abnormal ECG
--- NOTE | 2018-12-29 20:17 | Cardiology Report ---
APPROVED REPORT EXAM: Two-dimensional and M-mode echocardiogram with Doppler and color Doppler. INDICATION Congestive Heart Failure M-Mode DIMENSIONS IVSd1.0 (0.7-1.1cm)Left Atrium (MM)5.4 (1.6-4.0cm) LVDd5.3 (3.5-5.6cm)Aortic Root2.9 (2.0-3.7cm) PWd1.2 (0.7-1.1cm)Aortic Cusp Exc.1.9 (1.5-2.0cm) IVSs1.5 cm LVDs3.4 (2.5-4.0cm) PWs1.5 cm Technically difficult study due to poor acoustical windows. Normal left ventricular chamber size, systolic function and wall motion to extent visualized. Left ventricular ejection fraction estimated to be 60-65%. Mild left ventricular hypertrophy by 2-D. No evidence of pericardial effusion. Mild left atrial enlargement . Right cardiac chamber sizes are within normal limits. Aortic valve calcification with normal cusp excursion . Mildly thickened mitral valve leaflets with normal excursion. Mild mitral annulus and aortic root calcification. Pulmonic valve not well visualized. IVC at normal size with physiologic collapse . A color flow and spectral Doppler study was performed and revealed: No aortic insufficiency . Mitral diastolic velocities suggest reduced left ventricular relaxation c/w mild LV diastolic dysfunction (Grade I ) Mild mitral regurgitation. Mild tricuspid regurgitation. Tricuspid systolic velocities suggests peak right ventricular systolic pressure of 29mmHg.
--- NOTE | 2018-12-30 09:32 | Discharge Summary ---
Discharge Summary Discharge Summary _ DATE OF ADMISSION: 12/25/2018 DATE OF DISCHARGE: 12/29/2018 DISCHARGED BY: Dr Martinez REASON FOR ADMISSION: 78 years old female with past medical history of diabetes mellitus, hypertension , COPD, presented to the emergency room from the senior care [facility] for evaluation due to elevated blood sugar. Per nursing staff at the facility , blood sugar was difficult to control. Blood pressure was also high -187/86 . Patient denied chest pain or shortness of breath. No dizziness , no fever , no chills. Upon evaluation laboratory work-up revealed no leukocytosis, stable hemoglobin and hematocrit. Glucose 250. No evidence of DKA. BUN 6 , creatinine 0.8. Chest x-ray revealed cardiomegaly. EKG revealed sinus bradycardia with T wave inversion in lateral leads. Urinalysis revealed mild pyuria, and few bacteria, +3 leukocyte esterase, negative nitrite. Stable LFT. Patient subsequently admitted for further evaluation and management. CONSULTANTS: ID specialist Dr. Ann Martinez nurse clinician Dr. Mancilla surgery Dr. Robin [facility] COURSE: Patient admitted. Blood sugar was managed with sliding scale of insulin as needed and metformin. Blood sugar stabilized. Hemoglobin A1c- 8.5, not at goal. Patient will need further optimization of anti-glycemic regimen as outpatient. Blood pressure was managed with multiply regimen of antihypertensive medication as per nurse clinician recommendation, including hydralazine , Procardia and beta-ulises. Blood pressure improved. Lipid panel was stable. Echocardiogram revealed preserved ejection fraction of 60 to 65% with no evidence of pericardial effusion and mild left ventricular hypertrophy. No evidence of wall motion abnormality. Right ventricular systolic pressure of 29. Pro BNP 159. No evidence of CHF clincially and on CXR. Renal parameters and electrolytes were closely monitored and electrolytes corrected as needed, including potassium and magnesium. Patient noted to have mild anemia with hemoglobin 11.7 and hematocrit 35.4 upon presentation. Anemia work-up revealed evidence of anemia of chronic disease. Low level of folic acid noted. Patient started on folate replacement , continue at the facility. Prior to discharge hemoglobin 13.9 , hematocrit 42. ID specialist follow. Urinalysis revealed evidence of pyuria, but only few bacteria. No urinary complaints , no fever , no leukocytosis. Infectious doctor recommended to keep patient off antibiotic. Supplemental oxygen and pulmonary toilet were on board as needed due to history of COPD. Pulse oximetry was stable on room air . No signs of respiratory distress. Fall precautions were maintained. Surgeon seen patient for incontinence associated dermatitis. Skin care provided as per surgeon recommendation. Bowel regimen instituted due to constipation. Supportive care provided. Pain management was addressed as needed. Patient clinically stabilized and was ready for transfer back to senior care facility for continuation of care. FINAL DIAGNOSES: Diabetes mellitus out of control with hyperglycemia Electrolyte imbalance: hypokalemia, hypomagnesemia Hypertension Folate deficiency Incontinence associated dermatitis Constipation COPD Left eye blindness hypertension DISCHARGE MEDICATIONS: See Medication Reconciliation list. DISCHARGE INSTRUCTIONS: Patient was discharged to the senior care facility. Follow up with medical doctor at the facility. I have been assigned to dictate discharge summary for this account. I was not involved in the patient's management. Imelda Edge NP December 30, 2018 09:32
== END 2018-12-29 11:15 | DRG 638 ==
LOC: EDBD 17:15 → EDBEDREQ 17:37 → EMR 17:48 → 4E 18:00 → EDBEDREQ 18:07
DX: E11.65 Type 2 diabetes mellitus with hyperglycemia (principal); N39.0 Urinary tract infection, site not specified; F03.90 Unspecified dementia, unspecified severity, without behavioral disturbance, psychotic disturbance, mood disturbance, and anxiety; Z79.82 Long term (current) use of aspirin; Z79.4 Long term (current) use of insulin; E87.6 Hypokalemia; E83.42 Hypomagnesemia; I10 Essential (primary) hypertension; E53.8 Deficiency of other specified B group vitamins; R32 Unspecified urinary incontinence; L30.9 Dermatitis, unspecified; K59.00 Constipation, unspecified; J44.9 Chronic obstructive pulmonary disease, unspecified; H54.62 Unqualified visual loss, left eye, normal vision right eye; D64.9 Anemia, unspecified; M19.90 Unspecified osteoarthritis, unspecified site
CPT/HCPCS: 36415; 71045; 80053; 80061; 81003; 82009; 82607; 82728; 82746; 82962; 83036; 83540; 83550; 83735; 83880; 84100; 84443; 84550; 85025; 86140; 87081; 93005; 93306; 94664; 96360; 99285; J1815; J8499